=== PATIENT | female | born 1950 | race Caucasian/White ===

== ENCOUNTER 2022-09-14 07:00 | Day surgery (SDC) | payer MEDICARE, SELFPAY ==
[2022-09-14 07:21] VITALS: BP 127/80; PULSE 71; RESP 16; TEMP 36.4; O2SAT 98; BMI 32.1
[2022-09-14] MEDS: Lactated Ringers 1,000 ML 15 ML IV (07:31)
--- NOTE | 2022-09-14 08:36 | PCM.HP.BLA ---
History and Physical Date of Admission: 09/14/22 Intake Vital Signs ? 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 Complaint: Lower Back Lipoma Metal Lather Required: No Is patient in pain?: No Allergies acetaminophen [From Percocet] Adverse Reaction (Verified 08/04/22 08:38) Nightmaresoxycodone [From Percocet] Adverse Reaction (Verified 08/04/22 08:38) Nightmares Medications metoprolol succinate 25 mg tablet,extended release 24 hr 25 mg PO DAILY 08/04/22 [History Confirmed 08/04/22] PFSH Family History?(Updated 08/04/22 @ 08:35 by Madeline Tuesday) Brother Heart disease Hypertension High cholesterolMother Heart disease High cholesterol Hypertension Social History?(Updated 08/04/22 @ 08:36 by Madeline Tuesday) Smoking Status:? Never smoker alcohol intake:? current details:? one drink per week substance use type:? does not use HPI HPI HPI: The patient is here complaining of pain in her right lower back over the lipoma site ROS General General: Yes fatigue; No weight change, appetite, colon cancer, breast cancer or weakness HEENT HEENT: No difficulty swallowing, eye injury, eye surgery, swollen glands or hoarseness Endo Endocrine: No thyroid disease, diabetes mellitus, thyroid cancer, Hair loss, heat intolerance or cold intolerance Skin Skin: Yes changing moles; No rash Musc Musculoskeletal: Yes back problems and gout; No arthritis, rheumatoid arthritis or joint pain Cardio Cardiovascular: Yes high blood pressure; No murmur, pacemaker, heart disease, atrial fibrillation, heart attack, heart stent, palpitations, shortness of breat with exertion or chest pain Psych Psychiatric: No depression, anxiety or hearing voices Resp Respiratory: No shortness of breath, Yes sleep apnea, No cough, No COPD, No asthma, No emphysema and No wheezing Gastro Gastrointestinal: No abdominal pain, No nausea or vomiting, No diarrhea, No constipation, No blood in stool, Yes acid reflux, Yes hemorrhoids, No ulcers, No gallbladder problem and No black,tarry stools Juan Hematologic: No blood thinners, No blood disorders, No bleeding, No anemia and No blood clots Neuro Neurologic: No system reviewed and no additional complaints, except as documented, No as per HPI, No abnormal gait, No abnormal hearing, No abnormal movements, No abnormal speech, No behavioral changes, No burning sensations, No confusion, No convulsions, No disequilibrium, No dizziness, No localized weakness, No frequent falls, No headache(s), No lack of coordination, No loss of vision, No memory loss, No numbness, No other visual disturbances, No radicular pain, No restless legs, No sensory deficit, No syncope, No tingling, No tremor(s), No weakness and No other Exam Const General: cooperative Orientation: alert and oriented x3 HENMT Head: normal to inspection Neck Neck: normal visual inspection and full ROM Chest Chest palpation & inspection: normal inspection of the chest Resp Effort & Inspection: normal respiratory effort Auscultation: clear to auscultation bilaterally Cardio Rate: regular rate Rhythm: regular rhythm GI Inspection: non-distended Palpation: soft and nontender Musc Other: Patient has a subcutaneous soft tissue mass in the right lower back which is mobile and soft Skin General: no rashes or lesions noted Neuro General: patient alert and patient oriented x3 Extrem General: full ROM Psych Appearance: grossly normal Mental Status: mental status grossly normal Assessment and Plan Assessment and Plan (1) Back pain: ?Status:?Acute (2) Lipoma of back: ?Status:?Acute Plan The patient has a large lipoma of the right lower back which is causing her pain.? I informed her that I would have to excise this in the operating room due to its size.? I discussed the risks of bleeding and infection and recurrence.? Patient understands the risks and is when to proceed with excision. Marty Darby MD Pager: [facility] [address] [place] [address], [address] [place] [address] Office: Intake Vital Signs ? 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 Complaint: Lower Back Lipoma Metal Lather Required: No Is patient in pain?: No Allergies acetaminophen [From Percocet] Adverse Reaction (Verified 08/04/22 08:38) Nightmaresoxycodone [From Percocet] Adverse Reaction (Verified 08/04/22 08:38) Nightmares Medications metoprolol succinate 25 mg tablet,extended release 24 hr 25 mg PO DAILY 08/04/22 [History Confirmed 08/04/22] PFSH Family History?(Updated 08/04/22 @ 08:35 by Madeline Tuesday) Brother Heart disease Hypertension High cholesterolMother Heart disease High cholesterol Hypertension Social History?(Updated 08/04/22 @ 08:36 by Madeline Tuesday) Smoking Status:? Never smoker alcohol intake:? current details:? one drink per week substance use type:? does not use HPI HPI HPI: The patient is here complaining of pain in her right lower back over the lipoma site ROS General General: Yes fatigue; No weight change, appetite, colon cancer, breast cancer or weakness HEENT HEENT: No difficulty swallowing, eye injury, eye surgery, swollen glands or hoarseness Endo Endocrine: No thyroid disease, diabetes mellitus, thyroid cancer, Hair loss, heat intolerance or cold intolerance Skin Skin: Yes changing moles; No rash Musc Musculoskeletal: Yes back problems and gout; No arthritis, rheumatoid arthritis or joint pain Cardio Cardiovascular: Yes high blood pressure; No murmur, pacemaker, heart disease, atrial fibrillation, heart attack, heart stent, palpitations, shortness of breat with exertion or chest pain Psych Psychiatric: No depression, anxiety or hearing voices Resp Respiratory: No shortness of breath, Yes sleep apnea, No cough, No COPD, No asthma, No emphysema and No wheezing Gastro Gastrointestinal: No abdominal pain, No nausea or vomiting, No diarrhea, No constipation, No blood in stool, Yes acid reflux, Yes hemorrhoids, No ulcers, No gallbladder problem and No black,tarry stools Juan Hematologic: No blood thinners, No blood disorders, No bleeding, No anemia and No blood clots Neuro Neurologic: No system reviewed and no additional complaints, except as documented, No as per HPI, No abnormal gait, No abnormal hearing, No abnormal movements, No abnormal speech, No behavioral changes, No burning sensations, No confusion, No convulsions, No disequilibrium, No dizziness, No localized weakness, No frequent falls, No headache(s), No lack of coordination, No loss of vision, No memory loss, No numbness, No other visual disturbances, No radicular pain, No restless legs, No sensory deficit, No syncope, No tingling, No tremor(s), No weakness and No other Exam Const General: cooperative Orientation: alert and oriented x3 HENMT Head: normal to inspection Neck Neck: normal visual inspection and full ROM Chest Chest palpation & inspection: normal inspection of the chest Resp Effort & Inspection: normal respiratory effort Auscultation: clear to auscultation bilaterally Cardio Rate: regular rate Rhythm: regular rhythm GI Inspection: non-distended Palpation: soft and nontender Musc Other: Patient has a subcutaneous soft tissue mass in the right lower back which is mobile and soft Skin General: no rashes or lesions noted Neuro General: patient alert and patient oriented x3 Extrem General: full ROM Psych Appearance: grossly normal Mental Status: mental status grossly normal Assessment and Plan Assessment and Plan (1) Back pain: ?Status:?Acute (2) Lipoma of back: ?Status:?Acute Plan The patient has a large lipoma of the right lower back which is causing her pain.? I informed her that I would have to excise this in the operating room due to its size.? I discussed the risks of bleeding and infection and recurrence.? Patient understands the risks and is when to proceed with excision. Marty Darby MD Pager: [facility] [address] [place] [address], [address] [place] [address] Office: I have examined the patient and the H&P has been reviewed. There are no clinical changes since date of exam.
--- NOTE | 2022-09-14 08:50 | LIP_PTH ---
PATIENT: MIRNA BERMUDEZ [place] [facility] [place][id number] AGE/SX: 71/F ROOM: RE09/14/[address]: Dr. Marty Darby MD : 1950 BED: DIS: 09/14/2022 SPEC #: [id number] RECD: 09/14/22 11:59 STATUS: WARREN MARTINI #: [id number] RICK: 09/14/22 08:[address]: Marty Darby DEPT: SURGICAL PATHOLOGY RECD BY: Khloe Kerr ENTERED: 09/14/22 12:09 SP TYPE: LIPOMA OTHR DR: Dr. Lulú Sky MD Tissues: Soft tissues, NOS Procedures: Surgery Specimen Level III HEADER OPERATION: Excision lipoma PRE-OP DIAGNOSIS: Back pain, lipoma of back TISSUE SUBMITTED: Lipoma of back MICROSCOPIC DIAGNOSIS Soft tissue mass of back, excision: Mature adipose tissue consistent with lipoma. AM:chris 09/15/2022 MICROSCOPIC DESCRIPTION Slides are reviewed. GROSS DESCRIPTION Received in fixative is one container labeled with the patient's name and designated lipoma of back. The specimen consists of multiple pieces of yellow adipose tissue that in aggregate measure 7.5 x 7.0 x 2.0 cm. Sections revel yellow adipose cut surfaces without area of hemorrhage, necrosis or cystic degeneration. Auto Refinisher sections are submitted in four cassettes. / SJ:chris 09/14/2022 TC:1 CPT: 01462
[2022-09-14 09:20] VITALS: BP 127/80; BP 144/81; PULSE 68; RESP 16; TEMP 36.2; O2SAT 100
[2022-09-14] MEDS: Lidocaine 1% /Epi 1:100 (20ml) 20 ML Vial ×2 (09:21→09:22)
--- NOTE | 2022-09-14 09:23 | PCM.OPRPT ---
Report of Operation Date of Procedure: 09/14/22 Pre-Operative Diagnosis: Lipoma of the right lower back with back pain Post-Operative Diagnosis: Same Surgery/Procedure Performed:: Excision of lipoma of the right lower back Specimen's removed: Lipoma of the right lower back Description of Procedure: Patient was brought back to the operating room and general anesthesia was induced. Patient was then placed in prone position and the right lower back was prepped and draped in usual sterile fashion. An incision was marked and then injected with local anesthetic and an incision was made with a scalpel and deepened to the subcutaneous tissue. The lipoma was encountered and its capsule was dissected free circumferentially and was sent for pathology. It measured approximately 10 cm in diameter. The cavity was irrigated and suctioned dry and hemostasis was obtained using electrocautery. Incision was then closed with interrupted 3-0 Vicryl sutures and a running 4-0 Monocryl suture. Steri-Strips and bandages were applied. Patient was awoken and taken to PACU in stable condition and tolerated procedure well. Admit VTE Documentation VTE Mechan Device Prophylaxis: SCD's
--- NOTE | 2022-09-14 09:26 | DCINST_ITS ---
Discharge Instructions Diet Discharge Diet: No restrictions Activity Discharge Activity: May Drive (tomorrow) and May Shower (tomorrow) Weight Bearing Status: Weight bearing as tolerated Dressing / Incision Call your doctor if your incision/area has: Continuous Slow Oozing, Sudden Increased Bleeding, Increased Pain/ Swelling, Increased Redness, Foul Smelling Discharge and Swelling at the incision site Call your doctor if you observe: Fever of 101 or Higher Remove Dressing in: 2 days (Remove clear bandage in 2 days, remove Steri-Strips in 7 to 10 days.) Cleanse incision/area with: Soap & Water Follow Up Care Please Follow Up With: Marty Darby MD When: Please call to schedule 2 week follow up appointment. [phone] Test Results: Test results from this visit will be discussed in further detail at your follow- up appointment, if applicable. Discharge Plan Admission Attending Provider: Marty Darby Primary Care Provider: Lulú Sky Instructions Additional Instructions / Restrictions: Alternating ibuprofen and Tylenol for pain Discharge Orders/Prescriptions Prescriptions: No Action metoprolol succinate 25 mg tablet extended release 24 hr 25 mg PO QODAY thiamine HCl (vitamin B1) [Vitamin B-1] 500 mg Tablet 500 mg PO DAILY biotin 5 mg Capsule 5 mg PO DAILY potassium 99 mg Tablet 198 mg PO DAILY Vitamin C 1,000 mg Capsule, Extended Release 1 cap PO DAILY cholecalciferol (vitamin D3) [Vitamin D3] 50 mcg (2,000 unit) Tablet 100 mcg PO DAILY betaine HCl 300 mg Tablet 648 mg PO DAILY Women's Active 18 mg iron- 400 mcg-180 mg Tablet 2 tab PO DAILY vitamin C20-hvnwf acid 1,000-400 mcg Tablet, Sublingual 1 tab SUBLINGUAL DAILY ashwagandha root extract 300 mg Capsule 800 mg PO DAILY Barley [place] Juice Powder 1 pkg PO/SL DAILY DIM SUPPLEMENT 241 mg PO/SL DAILY Electrolyte Powder 1 pkg PO/SL DAILY Gallbladder Formul 2 cap PO/SL DAILY No Flush Niacin 500 mg PO/SL DAILY Raw Calcium 3 tab PO/SL DAILY Trace Minerals 1 cap PO/SL DAILY Tudh 500 mg PO/SL DAILY Referrals / Follow Up: Lulú Sky MD [Primary Care Provider] - Disposition Disposition (needs filled in before D/C Order can be placed): Home, Self Care
[2022-09-14 09:30] VITALS: BP 127/80; BP 129/77; PULSE 72; RESP 16; O2SAT 96
[2022-09-14 09:45] VITALS: BP 120/70; BP 127/80; PULSE 67; RESP 16; O2SAT 99
[2022-09-14 09:54] VITALS: BP 122/80; BP 127/80; PULSE 68; RESP 16; TEMP 36.5; O2SAT 98
[2022-09-14 10:28] VITALS: BP 127/80
== END 2022-09-14 10:37 | disposition home or self-care (01) ==
LOC: SDC 07:03 → AC 07:03
PROVIDERS: PCP Family Medicine; Referring Provider Surgery; Visit Provider Surgery
PROC: (CPT 21931; principal; 2022-09-14 08:40)
DX: D17.1 Benign lipomatous neoplasm of skin and subcutaneous tissue of trunk (principal); M54.9 Dorsalgia, unspecified; I10 Essential (primary) hypertension; K21.9 Gastro-esophageal reflux disease without esophagitis; G47.30 Sleep apnea, unspecified
CPT/HCPCS: 21931; 00300; 88304; J7120; J2405

== ENCOUNTER 2022-12-21 14:58 | Outpatient (CLI) | payer MEDICARE, SELFPAY ==
--- NOTE | 2022-12-21 15:00 | RAD_ITS ---
INDICATION: PAIN EXAMINATION/TECHNIQUE: X-RAY - XR Spine Lumbar Min 4 Views COMPARISON: FINDINGS: Vertebral bodies are normal height. No definite fracture demonstrated. Anterior subluxation 10 mm L4 on L5. Mild disc space narrowing and osteophytes throughout most levels. Facet arthropathy most pronounced at L4-5 and L5-S1. No paravertebral soft tissue mass identified. RAD/L/S Spine Min 4 Views IMPRESSION: No evidence of fracture or traumatic subluxation. Degenerative changes with anterolisthesis at L4-5. Electronically Signed: Arianna Monteiro MD at 5:23 EDT ,
--- NOTE | 2022-12-21 15:00 | RAD_ITS ---
STUDY: X-RAY - PELVIS REASON FOR EXAM: Female, 72 years old. PAIN TECHNIQUE: One view of the pelvis was obtained. COMPARISON: None. FINDINGS: There is a non-specific bowel gas pattern. Normal visualized soft tissue structures. Normal bilateral iliac wings, sacroiliac joints and visualized sacrum. Normal visualized bilateral superior and inferior pubic rami. Normal pubic symphysis. Normal ischial tuberosities. Normal visualized right femoral head. Normal right acetabulum. There is mild articular joint space narrowing of the right hip. Normal visualized left femoral head. Normal left acetabulum. There is mild articular joint space narrowing of the left hip. RAD/Pelvis 1 or 2 Views IMPRESSION: Mild bilateral hip arthrosis Electronically Signed: Naveen Amador MD at 23:09 EDT ,
[2022-12-21 16:05] LABS: EXAGEN MAILED SPECIMEN
[2022-12-21 18:09] LABS: Absolute Lymphocyte Count 2.07 X10^3/uL (0.83-4.51); Absolute Neutrophil Count 4.3 X10^3/uL (2.0-7.7); Basophil# 0.04 X10^3/uL; Basophil% 0.6 % (0-1); Eosinophil# 0.09 X10^3/uL; Eosinophils% 1.3 % (0-5); Hematocrit 49.2 % (37-47); International Normalized Ratio 0.9; Lymphocyte # 2.07 X10^3/ul (0.83-4.51); Lymphocyte % 29.9 % (19-41); Mean Corp Hgb Conc 32.5 g/dL (32-36); Mean Corpuscular Hgb 29.9 pg (27.0-32.0); Mean Platelet Vol. 10.8 fl (6.2-12.0); Monocyte# 0.41 X10^3/uL; Monocyte% 5.9 % (0-10); NRBC Flagged by Analyzer 0 % (0-5); Neutrophil # 4.29 X10^3/uL (2.7-7.7); Neutrophil % 61.9 % (47-70); Platelet Count 172 K/mm3 (150-450); Prothrombin Time (Protime)PT. 11.8 SECONDS (11.7-14.9); RBC Distribution Width CV 12.9 % (11.6-14.6); RBC Distribution Width SD 43.3 fl (35.1-43.9); Red Blood Count 5.35 M/mm3 (4.2-5.4); White Blood Count 6.9 K/mm3 (4.4-11.0)
[2022-12-21 18:10] LABS: Partial Thromboplast Time 33.9 Seconds (24.1-36.2)
[2022-12-21 18:14] LABS: ALB/GLOB Ratio 1.1 RATIO (0.9-2.4); AST(SGOT) 42 U/L (15-37); Alanine Aminotransfer ALT/SGPT 77 U/L (13-56); Albumin, Serum 3.8 g/dL (3.2-5.0); Alkaline Phosphatase 87 U/L (45-117); Anion Gap 6 (5-15); BUN 26 mg/dL (7-18); BUN/Creat Ratio 27.7 RATIO (10-20); Calcium,Total 9.6 mg/dL (8.5-10.1); Chloride 109 mmol/L (98-107); Creatinine, Serum 0.94 mg/dL (0.55-1.02); EST Glomerular Filtration Rate 62 mL/min (>60); Est Glom Filt Rate - Afr Amer 75 mL/min (>60); Globulin 3.5 g/dL (2.2-4.2); Glucose 92 mg/dL (74-106); Potassium 4.1 mmol/L (3.5-5.1); Protein, Total 7.3 g/dL (6.4-8.2); Sodium Level 140 mmol/L (136-145)
[2022-12-21 18:54] LABS: Protein, Urine (Random) < 6.0 mg/dL (<11.9); Protein:Creat Ratio 110 mg/g CRE (0-200)
[2022-12-24 20:08] LABS: Dilute Prothrombin Time (dPT) 41.6 sec (0.0-47.6); Hexagonal Phase Phospholipid 1 sec (0-11); Interpretation Comment: (.); PTT-LA 37.4 sec (0.0-43.5); Thrombin Time 20.5 sec (0.0-23.0); dPT Confirm Ratio 1.08 Ratio (0.00-1.34)
== END 2022-12-21 23:59 | disposition home or self-care (01) ==
PROVIDERS: PCP Family Medicine; Referring Provider Internal Medicine Rheumatology; Visit Provider Internal Medicine Rheumatology
DX: R76.8 Other specified abnormal immunological findings in serum (principal); M47.897 Other spondylosis, lumbosacral region; M19.071 Primary osteoarthritis, right ankle and foot; I10 Essential (primary) hypertension; G47.33 Obstructive sleep apnea (adult) (pediatric); K14.6 Glossodynia; K52.9 Noninfective gastroenteritis and colitis, unspecified; E78.5 Hyperlipidemia, unspecified; M21.41 Flat foot [pes planus] (acquired), right foot; R58 Hemorrhage, not elsewhere classified; R79.1 Abnormal coagulation profile
CPT/HCPCS: 36415; 72110; 72170; 80053; 82570; 84156; 85025; 85598; 85610; 85670; 85730

== ENCOUNTER → 2023-01-27 | Outpatient (CLI) | payer MEDICARE, SELFPAY ==
--- NOTE | 2023-01-27 09:37 | US_ITS ---
EXAM: US ABDOMEN LIMITED, RIGHT UPPER QUADRANT CLINICAL INDICATION: LIVER ENZYMES TECHNIQUE: Real-time ultrasound of the right upper quadrant with image documentation. COMPARISON: No relevant prior studies available. FINDINGS: LIVER: Liver measures 14.9 cm in length. There is normal echotexture. No intrahepatic biliary ductal dilation. GALLBLADDER: Gallbladder wall measures 1 mm. No shadowing gallstone. No pericholecystic fluid. Negative sonographic Ledbetter''s sign. COMMON BILE DUCT: Common bile duct measures 2 mm. The proximal common bile duct is within normal limits for the patient''s age. PANCREAS: Unremarkable as visualized. No focal abnormality is demonstrated in the pancreas. No pancreatic ductal dilatation. RIGHT KIDNEY: The right kidney measures 11.4 x 4.4 x 5.7 cm. There is no hydronephrosis. No shadowing calculus. No focal lesion or perinephric collection is demonstrated. US/Liver IMPRESSION: No acute findings in the right upper quadrant. Electronically Signed: Jamel Schuster MD at 23:45 EDT ,
== END | disposition home or self-care (01) ==
LOC: US 09:36
PROVIDERS: PCP Family Medicine; Referring Provider Internal Medicine Rheumatology; Visit Provider Internal Medicine Rheumatology
DX: R76.8 Other specified abnormal immunological findings in serum (principal)
CPT/HCPCS: 76705

== ENCOUNTER → 2023-04-01 | Outpatient (CLI) | payer MEDICARE, SELFPAY ==
[2023-04-01 18:40] LABS: ALB/GLOB Ratio 1.1 RATIO (0.9-2.4); AST(SGOT) 28 U/L (15-37); Alanine Aminotransfer ALT/SGPT 58 U/L (13-56); Albumin, Serum 3.6 g/dL (3.2-5.0); Alkaline Phosphatase 85 U/L (45-117); Anion Gap 8 (5-15); BUN 25 mg/dL (7-18); BUN/Creat Ratio 27.5 RATIO (10-20); Calcium,Total 9.3 mg/dL (8.5-10.1); Chloride 110 mmol/L (98-107); Creatinine, Serum 0.91 mg/dL (0.55-1.02); EST Glomerular Filtration Rate 65 mL/min (>60); Est Glom Filt Rate - Afr Amer 78 mL/min (>60); Globulin 3.2 g/dL (2.2-4.2); Glucose 91 mg/dL (74-106); Potassium 3.9 mmol/L (3.5-5.1); Protein, Total 6.8 g/dL (6.4-8.2); Sodium Level 140 mmol/L (136-145)
[2023-04-01 19:11] LABS: Hepatitis B Surface Antibody Non-Reactive; Hepatitis B Surface Antigen Non-Reactive (Nonreactive); Hepatitis C Antibody Non-Reactive (Nonreactive)
== END | disposition home or self-care (01) ==
LOC: MTLAB 14:25
PROVIDERS: PCP Family Medicine; Referring Provider Internal Medicine Rheumatology; Visit Provider Internal Medicine Rheumatology
DX: R76.8 Other specified abnormal immunological findings in serum (principal)
CPT/HCPCS: 36415; 80053; 86706; 86803; 87340

== ENCOUNTER → 2023-05-17 | Outpatient (CLI) | payer MEDICARE, SELFPAY | END | disposition home or self-care (01) | LOC: MTLAB 12:37 | PROVIDERS: PCP Family Medicine; Referring Provider Internal Medicine Infectious Disease; Visit Provider Internal Medicine Infectious Disease | DX: R19.7 Diarrhea, unspecified (principal) | CPT/HCPCS: 87177; 87209 ==

== ENCOUNTER → 2023-05-18 | Outpatient (CLI) | payer MEDICARE, SELFPAY | END | disposition home or self-care (01) | LOC: LAB.FUTURE 13:12 → LABSPEC 13:12 | PROVIDERS: PCP Family Medicine; Referring Provider Internal Medicine Infectious Disease; Visit Provider Internal Medicine Infectious Disease | DX: R19.7 Diarrhea, unspecified (principal) | CPT/HCPCS: 87177; 87209 ==

== ENCOUNTER → 2023-05-20 | Outpatient (CLI) | payer MEDICARE, SELFPAY | END | disposition home or self-care (01) | LOC: MTLAB 12:49 | PROVIDERS: PCP Family Medicine; Referring Provider Internal Medicine Infectious Disease; Visit Provider Internal Medicine Infectious Disease | DX: R19.7 Diarrhea, unspecified (principal) | CPT/HCPCS: 87177; 87209 ==

== ENCOUNTER → 2023-10-19 | Outpatient (CLI) | payer MEDICARE, SELFPAY ==
[2023-10-19 15:56] LABS: AST(SGOT) 28 U/L (15-37); Alanine Aminotransfer ALT/SGPT 52 U/L (13-56); Albumin, Serum 3.9 g/dL (3.2-5.0); Alkaline Phosphatase 97 U/L (45-117); Anion Gap 4 (5-15); BUN 26 mg/dL (7-18); BUN/Creat Ratio 23.4 RATIO (10-20); Calcium,Total 9.7 mg/dL (8.5-10.1); Chloride 109 mmol/L (98-107); Creatinine, Serum 1.11 mg/dL (0.55-1.02); EST Glomerular Filtration Rate 51 mL/min (>60); Est Glom Filt Rate - Afr Amer 62 mL/min (>60); Globulin 3.8 g/dL (2.2-4.2); Glucose 96 mg/dL (74-106); Protein, Total 7.7 g/dL (6.4-8.2); Sodium Level 140 mmol/L (136-145)
[2023-10-19 16:46] LABS: Hepatitis B Surface Antigen Non-Reactive (Nonreactive); Hepatitis C Antibody Non-Reactive (Nonreactive); Syphilis Antibodies Non-reactive
[2023-10-21 06:09] LABS: HSV 1 IgG < 0.91 index (0.00-0.90); HSV 2 IgG < 0.91 index (0.00-0.90)
[2023-10-21 20:08] LABS: Chlamydia By Nucleic Acid AMP Negative (Negative); Gonococcus By Nucleic Acid AMP Negative (Negative)
[2023-10-24 14:09] LABS: HPV APTIMA, High Risk Negative (Negative)
== END | disposition home or self-care (01) ==
PROVIDERS: PCP Nurse Practitioner Family; Referring Provider Nurse Practitioner Women's Health; Visit Provider Nurse Practitioner Women's Health
DX: Z12.4 Encounter for screening for malignant neoplasm of cervix (principal); Z86.19 Personal history of other infectious and parasitic diseases; Z78.0 Asymptomatic menopausal state; N89.8 Other specified noninflammatory disorders of vagina; Z20.2 Contact with and (suspected) exposure to infections with a predominantly sexual mode of transmission; R74.8 Abnormal levels of other serum enzymes
CPT/HCPCS: 36415; 80053; 86695; 86696; 86780; 86803; 87070; 87205; 87340; 87491; 87591; 87624; 88175; G0145

== ENCOUNTER → 2024-09-07 | Outpatient (CLI) | payer MEDICARE, SELFPAY ==
[2024-09-07 12:29] LABS: Hepatitis B Surface Antigen Nonreactive (Nonreactive); Hepatitis C Antibody Nonreactive (Nonreactive); Syphilis Antibodies Nonreactive (Nonreactive)
[2024-09-07 21:36] LABS: HIV No_Result (Nonreactive)
[2024-09-11 03:07] LABS: Chlamydia By Nucleic Acid AMP Negative (Negative); Gonococcus By Nucleic Acid AMP Negative (Negative)
== END | disposition home or self-care (01) ==
LOC: BWCLAB 09:16
PROVIDERS: PCP Nurse Practitioner Family; Referring Provider Advanced Practice Midwife; Visit Provider Advanced Practice Midwife
DX: Z20.2 Contact with and (suspected) exposure to infections with a predominantly sexual mode of transmission (principal); N89.8 Other specified noninflammatory disorders of vagina
CPT/HCPCS: 36415; 86695; 86696; 86703; 86780; 86803; 87070; 87205; 87340; 87491; 87591

== ENCOUNTER → 2024-11-30 | Outpatient (CLI) | payer MEDICARE, SELFPAY ==
--- OUTSIDE RECORDS SUMMARY | 2024-11-30 10:46 | XMS RPT_ITS | CCD ---
Author Organization [facility] Care Team Providers Care Material Requirements Planning Manager Name Role Phone Penhos Fredy Unavailable Unavailable Penhos, Fredy Unavailable Unavailable Unavailable Unavailable Unavailable Dr. Lulú Rueda Primary Care Provider Dr. Lulú Rueda Referring Provider Dr. Marty Darby Attending Provider [phone] Dr. Marty Darby Referring Provider Dr. Marty Darby Other Provider Dr. Lulú Rueda Primary Care Provider Dr. Marty Darby Attending Provider MARYBETH CHOE, LULÚ Primary Care Unavailable MARYBETH CHOE, LULÚ Primary Care Unavailable FLAKO CHOE, ALONZO Haddad Attending Unavailab moiz PALUMBO MD, [facility] Referring Unavailable VITEK MINE ENGINEERING SUPERINTENDENT, EM Attending Unavailable MARYBETH CHOE, LULÚ Primary Care Unavailable MARYBETH CHOE, LULÚ Primary Care Unavailable VITEK MINE ENGINEERING SUPERINTENDENT, EM Attending Unavailable MARYBETH CHOE, LULÚ Primary Care Unavailable VITEK MINE ENGINEERING SUPERINTENDENT, EM Attending Unavailable VITEK MINE ENGINEERING SUPERINTENDENT, EM Referring Unavailable MARYBETH CHOE, LULÚ Primary Care Unavailable VITEK MINE ENGINEERING SUPERINTENDENT, EM Attending Unavailable VITEK MINE ENGINEERING SUPERINTENDENT, EM Referring Unavailable MARYBETH CHOE, LULÚ Primary Care Unavailable VITEK MINE ENGINEERING SUPERINTENDENT, EM Attending Unavailable VITEK MINE ENGINEERING SUPERINTENDENT, EM Referring Unavailable MARYBETH CHOE, LULÚ Primary Care Unavailable Dr. Lulú Rueda Referring Provider Arlette TOMPKINS, CINDI Maynard Attending Provider [phone] Deborah, CORNCOB PIPE SUPERVISOR-C Gould Primary Care Provider [phone] VITEK MINE ENGINEERING SUPERINTENDENT, EM Attending Unavailable VITEK MINE ENGINEERING SUPERINTENDENT, EM Referring Unavailable MARYBETH CHOE, LULÚ Primary Care Unavailable MARYBETH CHOE, LULÚ Primary Care Unavailable VITEK MINE ENGINEERING SUPERINTENDENT, EM Attending Unavailable VITEK MINE ENGINEERING SUPERINTENDENT, EM Referring Unavailable MARYBETH CHOE, LULÚ Primary Care Unavailable VITEK MINE ENGINEERING SUPERINTENDENT, EM Attending Unavailable VITEK MINE ENGINEERING SUPERINTENDENT, EM Attending Unavailable MARYBETH CHOE, LULÚ Primary Care Unavailable LIVAN HUTCHISON Attending Unavailable DEBORAH, LISANDRA Primary Care Unavailable [place] CORNCOB PIPE SUPERVISOR, Aleyda Referring Unavailable Deborah, Lisandra Primary Care Unavailable Arlette CORNCOB PIPE SUPERVISOR, Aleyda Attending Unavailable Judy Licona Attending Unavailable Judy Licona Referring Unavailable Deborah, Lisandra Primary Care Unavailable Deborah, Lisandra Primary Care Unavailable Arlette CORNCOB PIPE SUPERVISOR, Aleyda Attending Unavailable Deborah, Lisandra Referring Unavailable Drgilberto, Lulú Referring Unavailable [place] CORNCOB PIPE SUPERVISOR, Aleyda Attending Unavailable Deborah, Lisandra Primary Care Unavailable Deborah, Lisandra Primary Care Unavailable Judy Licona Attending Unavailable Deborah, Lisandra Referring Unavailable Deborah, Lisandra Primary Care Unavailable Richard Roy Attending Unavailable Deborah, Lisandra Referring Unavailable Deborah, Lisandra Primary Care Unavailable [place] CORNCOB PIPE SUPERVISOR, Aleyda Attending Unavailable Deborah, Lisandra Referring Unavailable Deborah, Lisandra Primary Care Unavailable [place] CORNCOB PIPE SUPERVISOR, Aleyda Attending Unavailable Deborah, Lisandra Referring Unavailable Deborah, Lisandra Primary Care Unavailable [place] CORNCOB PIPE SUPERVISOR, Aleyda Attending Unavailable [place] CORNCOB PIPE SUPERVISOR, Aleyda Referring Unavailable Deborah, Lisandra Primary Care Unavailable Deborah, Lisandra Attending Unavailable Deborah CORNCOB PIPE SUPERVISOR-C, Gould Primary Care Provider [phone] Deborah CORNCOB PIPE SUPERVISOR-C, Gould Referring Provider Richard Roy Attending Provider Judy Licona CNM Attending Provider [phone] Judy Licona CNM Referring Provider Allergies Allergy Classification Reported Allergen(s) Allergy Type Date of Onset Reaction(s) Facility (7 sources) oxyCODONE Drug Allergy 3 [facility] (1 source) Acetaminophen / oxyCODONE; Translations: [OXYCODONE-ACETAM INOPHEN] Drug Allergy 5 [facility] (1 source) OTHER; Translations: [OTHER] Propensity to adverse reactions (disorder) 7 [facility] (1 source) oxyCODONE Drug Allergy 5 [facility] Repository Medications Current Medications Medication Drug Class(es) Dates Sig (Normalized) Sig (Original) ascorbic acid 1000 mg extended release oral tablet (7 sources) Vitamin C Start: 09-08-2022 Ascorbic Acid (Vitamin C) (Vitamin C) 1,000 mg Capsule, Extended Release Active 1 NMA PO DAILY September 08, 2022 12:00am Start: 09-08-2022 take 1 capsule by mo ut once daily Ascorbic Acid (Vitamin C) (Vitamin C) 1,000 mg Capsule, Extended Release Active 1 CAP PO DAILY September 08, 2022 12:00am Ashwagandha Root Extract (6 sources) Start: 09-08-2022 take 800 mg by mouth once daily Ashwagandha Root Extract Active 800 MG PO DAILY September 07, 2022 11:00pm Start: 09-08-2022 take 800 mg by mouth once blair y Ashwagandha Root Extract Active 800 MG PO DAILY September 08, 2022 12:00am Ashwagandha Root Extract 300 mg Capsule (1 source) Start: 09-08-2022 take 1 capsule by mouth once daily Ashwagandha Root Extract 300 mg Capsule Active 800 mg PO DAILY September 08, 2022 12:00am cholecalciferol 0.05 mg oral tablet (7 sources) Vitamin D Start: 09-08-2022 take 1 tablet by mouth once daily Cholecalciferol (Vitamin D3) (Vitamin D3) 50 mcg (2,000 unit) Tablet Active 100 ug PO DAILY September 08, 2022 12:00am fluconazole 150 mg oral tablet (1 source) Azole Antifungal Start: 09-10-2024 Fluconazole 150 mg tablet Active 150 mg PO Every 3 Days 2 0 September 10, 2024 12:00am may repeat second dose 72 hrs after first dose if symptoms persist losartan potassium 25 mg oral tablet (2 sources) Angiotensin 2 Receptor Nova Start: 10-19-2023 Losartan 25 mg tablet Active 12.5 mg PO DAILY October 19, 2023 12:00am Start: 10-19-2023 take 12.5 mg by mouth once noemi ly Losartan Active 12.5 MG PO DAILY October 19, 2023 12:00am niacin 500 mg oral tablet (7 sources) Nicotinic Acid Start: 09-08-2022 take 500 mg by mouth once daily No Flush Niacin Active 500 mg SL/PO DAILY September 08, 2022 12:00am thiamine 500 mg oral tablet (7 sources) Start: 09-08-2022 take 1 tablet by mouth once daily Thiamine Hcl (Vitamin B1) (Vitamin B-1) 500 mg Tablet Active 500 mg PO DAILY September 08, 2022 12:00am Trace Minerals (7 sources) Start: 09-08-2022 Trace Minerals Active 1 NMA SL/PO DAILY September 08, 2022 12:00am Start: 09-08-2022 take 1 capsule by mo uth once daily Trace Minerals Active 1 CAP SL/PO DAILY September 07, 2022 11:00pm Start: 09-08-2022 take 1 capsule by mo uth once daily Trace Minerals Active 1 CAP SL/PO DAILY September 08, 2022 12:00am Tudh (7 sources) Start: 09-08-2022 take 500 mg by mouth once daily Tudh Active 500 mg SL/PO DAILY September 08, 2022 12:00am Start: 09-08-2022 take 500 mg by mouth once blair y Tudh Active 500 MG SL/PO DAILY September 07, 2022 11:00pm Start: 09-08-2022 take 500 mg by mouth once blair y Tudh Active 500 MG SL/PO DAILY September 08, 2022 12:00am Vitamin H72-Kxmgg Acid (6 sources) Start: 09-08-2022 Vitamin B12-Fo lic Acid Active 1 TABLET SL DAILY September 07, 2022 11:00pm Start: 09-08-2022 Vitamin B12-Fo lic Acid Active 1 TABLET SL DAILY September 08, 2022 12:00am Vitamin M11-Jfnbx Acid 1,000 -400 mcg Tablet, Sublingual (1 source) Start: 09-08-2022 Vitamin B12-Fo lic Acid 1,000-400 mcg Tablet, Sublingual Active 1 {tbl} SL DAILY September 08, 2022 12:00am Completed/Discontinued Medications Medication Drug Class(es) Dates Sig (Normalized) Sig (Original) Barley Belterra Juice Powder (7 sources) Start: 09-08-2022 End: 09-07-2024 Barley Belterra Juice Powder Discontinued 1 NMA SL/PO DAILY September 08, 2022 12:00am September 07, 2024 8:30am Start: 09-08-2022 Barley Belterra Ju ice Powder Active 1 PKG SL/PO DAILY September 07, 2022 11:00pm Start: 09-08-2022 Barley Belterra Ju ice Powder Active 1 PKG SL/PO DAILY September 08, 2022 12:00am betaine 300 mg oral tablet (7 sources) Methylating Agent Start: 09-08-2022 End: 09-07-2024 Betaine Hcl 300 mg Tablet Discontinued 648 mg PO DAILY September 08, 2022 12:00am September 07, 2024 8:30am Start: 09-08-2022 take 648 mg by mouth once blair y Betaine Hcl Active 648 MG PO DAILY September 08, 2022 12:00am biotin 5 mg oral capsule (7 sources) Start: 09-08-2022 End: 09-07-2024 take 1 capsule by mouth once daily Biotin 5 mg Capsule Discontinued 5 mg PO DAILY September 08, 2022 12:00am September 07, 2024 8:30am Calcium (7 sources) Phosphate Binder, Calcium Start: 09-08-2022 End: 09-07-2024 Raw Calcium Discontinued 3 {tbl} SL/PO DAILY September 08, 2022 12:00am September 07, 2024 8:31am Start: 09-08-2022 take 3 tablets by mouth once d aily Raw Calcium Active 3 TABLET SL/PO DAILY September 07, 2022 11:00pm Start: 09-08-2022 take 3 tablets by mouth once d aily Raw Calcium Active 3 TABLET SL/PO DAILY September 08, 2022 12:00am DIM SUPPLEMENT (7 sources) Start: 09-08-2022 End: 09-07-2024 take 241 mg by mouth once daily DIM SUPPLEMENT Discontinued 241 mg SL/PO DAILY September 08, 2022 12:00am September 07, 2024 8:30am Start: 09-08-2022 take 241 mg by mouth once blair y DIM SUPPLEMENT Active 241 MG SL/PO DAILY September 07, 2022 11:00pm Start: 09-08-2022 take 241 mg by mouth once blair y DIM SUPPLEMENT Active 241 MG SL/PO DAILY September 08, 2022 12:00am Electrolyte Powder (7 sources) Start: 09-08-2022 End: 09-07-2024 Electrolyte Powder Discontin ued 1 NMA SL/PO DAILY September 08, 2022 12:00am September 07, 2024 8:30am Start: 09-08-2022 Electrolyte Po wder Active 1 PKG SL/PO DAILY September 07, 2022 11:00pm Start: 09-08-2022 Electrolyte Po wder Active 1 PKG SL/PO DAILY September 08, 2022 12:00am estradiol 0.1 mg/ml vaginal cream (2 sources) Estrogen Start: 10-19-2023 End: 09-07-2024 Estradiol 0.01 % (0.1 mg/gram) cream Discontinued 0 VAGINAL .COMPLEX 42.5 October 19, 2023 12:00am September 07, 2024 8:31am small amount as directed vaginal every other day X 4 weeks then twice a week; Start: 10-19-2023 Estradiol Acti ve 0 VAGINAL .COMPLEX 42.5 October 19, 2023 12:00am small amount as directed vaginal every other day X 4 weeks then twice a week; Gallbladder Formul (7 sources) Start: 09-08-2022 End: 09-07-2024 Gallbladder Formul Discontin ued 2 NMA SL/PO DAILY September 08, 2022 12:00am September 07, 2024 8:31am Start: 09-08-2022 take 2 capsules by m outh once daily Gallbladder Formul Active 2 CAP SL/PO DAILY September 07, 2022 11:00pm Start: 09-08-2022 take 2 capsules by m outh once daily Gallbladder Formul Active 2 CAP SL/PO DAILY September 08, 2022 12:00am 24 hr metoprolol succinate 25 mg extended release oral tablet (7 sources) beta-Adrenergic Nova Start: 08-04-2022 End: 10-19-2023 take 1 tablet by mouth every other day Metoprolol Succinate 25 mg tablet extended release 24 hr Discontinued 25 mg PO EVERY OTHER DAY August 04, 2022 1:00am October 19, 2023 2:32pm Mv,Ca,Min-Iron-Fa -Guarana-Caff (Women's Active) 18 mg iron- 400 mcg-180 mg Tablet (7 sources) Start: 09-08-2022 End: 09-07-2024 Mv,Ca,Lfk-Qisz-Zs- Guarana-Caff (Women's Active) 18 mg iron- 400 mcg-180 mg Tablet Discontinued 2 {tbl} PO DAILY September 08, 2022 12:00am September 07, 2024 8:31am Start: 09-08-2022 Mv,Ca,Min-Iron -Lx-Lyrfygs-Hnwo (Women's Active) 18 mg iron- 400 mcg-180 mg Tablet Active 2 TABLET PO DAILY September 07, 2022 11:00pm Start: 09-08-2022 Mv,Ca,Min-Iron -Ue-Wyekdob-Vdst (Women's Active) 18 mg iron- 400 mcg-180 mg Tablet Active 2 TABLET PO DAILY September 08, 2022 12:00am oseltamivir 75 mg oral capsule (1 source) Neuraminidase Inhibitor Start: 08-09-2024 End: 08-14-2024 take 1 capsule by mouth every twelve hours Oseltamivir (Tamiflu) 75 mg capsule Discontinued 75 mg PO Q12H 10 5 August 09, 2024 1:00am August 13, 2024 1:00am August 14, 2024 1:15am potassium 99 mg extended release oral tablet (7 sources) Start: 09-08-2022 End: 09-07-2024 take 2 tablets by mouth once daily Potassium 99 mg Tablet Discontinued 198 mg PO DAILY September 08, 2022 12:00am September 07, 2024 8:31am Start: 09-08-2022 take 198 mg by mouth once blair y Potassium Active 198 MG PO DAILY September 07, 2022 11:00pm Start: 09-08-2022 take 198 mg by mouth once blair y Potassium Active 198 MG PO DAILY September 08, 2022 12:00am Problems Active Problems Problem Classification Problem Date Documented Da te Episodic/Chronic Esophageal disorders (7 sources) Gastroesophageal reflux disease; Translations: [Gastro-esophageal reflux disease without esophagitis] 08-04-2022 Chronic Essential hypertension (7 sources) Hypertensive disorder; Translations: [Essential (primary) hypertension] 08-04-2022 Chronic Genitourinary symptoms and ill-defined conditions (1 source) Unspecified urinary incontinence; Translations: [Unspecified urinary incontinence] Onset: Chronic Gout and other crystal arthropathies (7 sources) Gout; Translations: [Gout, unspecified] 08-04-2022 Chronic Hemorrhoids (7 sources) Hemorrhoids; Translations: [Unspecified hemorrhoids] 08-04-2022 Episodic Immunizations and screening for infectious disease (2 sources) Contact with and (suspected) exposure to infections with a predominantly sexual mode of transmission; Translations: [Contact with or exposure to venereal diseases] Onset: 5 10-19-2023 Episodic Influenza (2 sources) Influenza due to Influenza A virus; Translations: [Influenza due to other identified influenza virus with other respiratory manifestations] 08-09-2024 Episodic Menopausal disorders (3 sources) Atrophic vaginitis; Translations: [Postmenopausal atrophic vaginitis] 10-19-2023 Chronic Other and unspecified benign neoplasm (7 sources) Lipoma of back; Translations: [Benign lipomatous neoplasm of skin and subcutaneous tissue of trunk] 08-04-2022 Episodic Other and unspecified benign neoplasm (2 sources) Benign lipomatous neoplasm of skin and subcutaneous tissue of trunk; Translations: [Lipoma of other specified sites] 08-04-2022 Episodic Other female genital disorders (1 source) Other specified noninflammatory disorders of vagina; Translations: [Other specified noninflammatory disorders of vagina] Onset: 5 Episodic Other female genital disorders (2 sources) Vaginal odor; Translations: [Other specified noninflammatory disorders of vagina] 09-07-2024 Episodic Other gastrointestinal disorders (1 source) Personal history of other diseases of the digestive system; Translations: [History of gastroenteritis] Onset: Episodic Other infections; including parasitic (2 sources) History of human papilloma virus infection; Translations: [Personal history of other infectious and parasitic diseases] 10-19-2023 Episodic Comment on above: 09/2023 neg pap and H PV Other infections; including parasitic (1 source) Personal history of other infectious and parasitic diseases; Translations: [Personal history of other infectious and parasitic diseases] 10-19-2023 Episodic Other liver diseases (2 sources) Elevated liver enzymes level; Translations: [Abnormal levels of other serum enzymes] 10-19-2023 Episodic Other upper respiratory infections (1 source) Acute pharyngitis, unspecified; Translations: [Acute pharyngitis, unspecified] Onset: 5 Episodic Residual codes; unclassified (7 sources) Sleep apnea; Translations: [Sleep apnea, unspecified] 08-04-2022 Chronic Residual codes; unclassified (1 source) Pain, unspecified; Translations: [Pain, unspecified] Onset: 5 Episodic Spondylosis; intervertebral disc disorders; other back problems (8 sources) Backache; Translations: [Dorsalgia, unspecified] 08-04-2022 Episodic Unclassified (1 source) Post-viral cough syndrome; Translations: [Post-viral cough syndrome] Onset: 4 Past or Other Problems Problem Classification Problem Date Documented Da te Episodic/Chronic Other liver diseases (2 sources) Abnormal levels of other serum enzymes; Translations: [Other nonspecific abnormal serum enzyme levels] Onset: 10-19-2023 10-19-2023 Episodic Other screening for suspected conditions (not mental disorders or infectious disease) (2 sources) Encounter for screening mammogram for malignant neoplasm of breast; Translations: [Encounter for screening for malignant neoplasm of cervix] Onset: 10-25-2023 Episodic Results Test Name Value Interpretation Reference Range Facility Chlamydia/GC BLADE aptimaon CHLAMY,NUC ACID Negative Normal Negative [facility] Comment on above: Performed By: #### M 100.1999, M100.3200, L7000.1800 #### [facility] [address] [place], [place], [id number] GC BY NUC ACID Negative Normal Negative [facility] Comment on above: Result Comment: Perf ormed at: =G - [facility] [address] [id number] Manager Net: Katelynn Arndt MD, Phone: [phone] Performed By: #### M 100.2000, M100.3200, L7000.1800 #### [facility] [address] [place], [address] HSV 1 AND 2 IgGon 09-11-2024 HSV 1 IgG Normal [facility] Comment on above: Result Comment: RESU LT: NON REACTIVE Please note reference interval change HSV-1 IgG testing performed using the [employer] HSV-1 IgG assay. Performed By: #### L 3400.1610, L509.8002, L3890.6006, L3890.6102, L3890.6301 ####[facility] [address] [place], [address] HSV 2 IgG Normal [facility] Comment on above: Result Comment: RESU LT: NON REACTIVE Please note reference interval change Current guidelines and recommendations do not recommend routine screening for HSV-2 in asymptomatic individuals, including those that are . The detection of HSV-2 IgG antibodies in a single sample indicates previous exposure to HSV-2 but does not give information as to the site of HSV infection or the timing of exposure. The predictive value of positive and negative results depends on the population's prevalence and the pretest likelihood of HSV-2. HSV-2 IgG testing performed using the [employer] Ele[employer] HSV-2 IgG assay. Performed at: [place] [id number] Manager Net: Slim Wilkins PhD, Phone: [phone] Performed By: #### L 3400.1610, L509.8002, L3890.6006, L3890.6102, L3890.6301 ####[facility] [address] [place], [address] Genital Culture Comprehensiv moe 09-10-2024 VAC Reason for Exam: vag inal burning odor Normal vaginal veronica isolated. No Gardnerella, Neisseria or beta-hemolytic Streptococcus isolated. Yeast Like Organism Amount Growth 1+ GPC Poss Enterococcus sp GPC Poss Enterococcus sp Normal [facility] Comment on above: Performed By: #### M 100.2000, M100.3200, L7000.1800 #### [facility] [address] [place], [place], [id number] C. trachomatis rRNA BLADE+prob e Ql (Unsp spec)Ordered By: Judy Licona on 09-07-2024 Chlamydia DNA (BLADE) Negative Negative [facility] Genital cultureOrdered By: Jenae Licona on 09-07-2024 Genital Culture Yeast Like Organism Abnormal [facility] Genital Culture GPC Poss Enterococcus sp Abnormal [facility] Gram Stainon 09-07-2024 GS Reason for Exam: vag inal burning odor Gram Stain 2+ Gram positive rods Rare Gram positive cocci No Gram negative diplococci Rare White Blood Cells Normal [facility] Comment on above: Performed By: #### M 100.2000, M100.3200, L7000.1800 #### [facility] [address] [place], [address] Gram stainOrdered By: Judy Licona on 09-07-2024 Microscopic observation Gram stain Nom (Unsp spec) [facility] HBV surface Ag Ql (S)Ordered By: Judy Licona on 09-07-2024 Hepatitis B Surface Antigen Non-Reactive Nonreactive [facility] Comment on above: Reactive: Presumptiv e evidence of HBV. Repeatedly reactive samples must be confirmed using a neutralization test ([employer] HBsAg Confirmatory Test)Non-Reactive: HBsAg not detected; does not exclude the possibility of exposure to HBV HSV 2 Ab IA Qn (S)Ordered By : Judy Licona on 09-07-2024 Herpes Simplex Virus II IgG Ab See comment [facility] Comment on above: RESULT: NON REACTIVE Please note reference interval changeCurrent guidelines and recommendations do not recommendroutine screening for HSV-2 in asymptomatic individuals,including those that are . The detection of HSV-2IgG antibodies in a single sample indicates previousexposure to HSV-2 but does not give information as to thesite of HSV infection or the timing of exposure. Thepredictive value of positive and negative results dependson the population's prevalence and the pretest likelihoodof HSV-2. HSV-2 IgG testing performed using the [employer] HSV-2 IgG assay.Performed at: [facility] [id number] Director: Slim Wilkins PhD, Phone: [phone] Hepatitis C antibodyOrdered By: Judy Licona on 09-07-2024 Hepatitis C Antibody Non-Reactive Nonreactive [facility] Comment on above: Reactive: Presumptiv e evidence of antibodies to HCV. Follow CDC recommendations for supplemental testing.Non-Reactive: Antibodies to HCV were not detected; does not exclude the possibility of exposure to HCVReactive Results are presumptive evidence of antibodies to HCV. Follow CDC recommendations for supplemental testing.Order confirmation testing: HCV Quant by PCR testing - HCVPCR #[id number] Non Reactive: < 0.8 Equivocal: >/= 0.8 to < 1.0 Reactive: >/= 1.0The CDC requires that a reactive/equivocal HCV antibody result be sent out for confirmation. HCV Quant by PCR testing. Herpes simplex virus (HSV) t ype 1 IgG antibody assayOrdered By: Judy Licona on 09-07-2024 Herpes Simplex Virus I IgG Antibody See comment [facility] Comment on above: RESULT: NON REACTIVE Please note reference interval changeHSV-1 IgG testing performed using the [employer] HSV-1IgG assay. L3890.6006on 09-07-2024 HIV No_Result Normal Nonreactive [facility] Comment on above: Result Comment: Non- Reactive Reactive Repeatedly reactive samples must be confirmed according to CDC recommended confirmatory algorithms. The subresults for either HIVAG or AHIV can be used as an aid in the selection of the confirmation algorithm for reactive samples. Send out specimens with Reactive results to [facility] for confirmation. Order the HIV antibody detection and differentiation: #[id number] Performed By: #### L 3400.1610, L509.8002, L3890.6006, L3890.6102, L3890.6301 ####[facility] [address] [facility], [address] L3890.6102on 09-07-2024 HEP B Surf Ag Non-Reactive Normal Nonreactive [facility] Comment on above: Result Comment: Reac tive: Presumptive evidence of HBV. Repeatedly reactive samples must be confirmed using a neutralization test ([employer] HBsAg Confirmatory Test) Non-Reactive: HBsAg not detected; does not exclude the possibility of exposure to HBV Performed By: #### L 3400.1610, L509.8002, L3890.6006, L3890.6102, L3890.6301 ####[facility] [address] [place], [address] L3890.6301on 09-07-2024 Hepatitis C Ab Non-Reactive Normal Nonreactive [facility] Comment on above: Result Comment: Reac tive: Presumptive evidence of antibodies to HCV. Follow CDC recommendations for supplemental testing. Non-Reactive: Antibodies to HCV were not detected; does not exclude the possibility of exposure to HCV Reactive Results are presumptive evidence of antibodies to HCV. Follow CDC recommendations for supplemental testing. Order confirmation testing: HCV Quant by PCR testing - HCVPCR #[id number] Non Reactive: < 0.8 Equivocal: >/= 0.8 to < 1.0 Reactive: >/= 1.0 The CDC requires that a reactive/equivocal HCV antibody result be sent out for confirmation. HCV Quant by PCR testing. Performed By: #### L 3400.1610, L509.8002, L3890.6006, L3890.6102, L3890.6301 ####[facility] [address] [place], [address] L509.8002on 09-07-2024 Syphilis Abs Non-Reactive Normal Nonreactive [facility] Comment on above: Performed By: #### L 3400.1610, L509.8002, L3890.6006, L3890.6102, L3890.6301 ####[facility] [address] [place], [address] Neisseria gonorrhoeae nuclei c acid detection by amplified probe techniqueOrdered By: Judy Licona on 09-07-2024 N. gonorrhoeae DNA BLADE+probe Ql (Unsp spec) Negative Negative [facility] Comment on above: Performed at: =[address] [id number] Director: Katelynn Arndt MD, Phone: [phone] No Panel InformationOrdered By: Judy Licona on 09-07-2024 HIV (1&2) Antibody No_Result Nonreactive [facility] Comment on above: Non-ReactiveReactive Repeatedly reactive samples must be confirmed according to CDC recommended confirmatory algorithms. The subresults for either HIVAG or AHIV can be used as an aid in the selection of the confirmation algorithm for reactive samples.Send out specimens with Reactive results to [facility] for confirmation.Order the HIV antibody detection and differentiation: #[id number] POC Bacterial Vaginitis (Rapid) Negative [facility] Cleaner Signs Office Visit Reporton 09-07-2024 Cleaner Signs Office Visit Report [facility]'s [address], [address] [place] [address] OFFICE VISIT Date of Service: 09/07/24 MR#: [id number] Acct: [id number] Name: MIRNA BERMUDEZ Rep #: [id number] : 1950 Provider: PETTY Medeiros ams Age/Sex: 73/F Location: [facility] [place] Status: Signed Intake Vital Signs 08/09/24 09:28 09/07/24 08:24 Height 5 ft 7 in 5 ft 7 in Weight: 205 lb 216 lb 2 oz BMI 32.1 33.8 BP 120/80 138/73 H Position Sitting Pulse 91 Temp 98.4 F Pulse Oximetry (%) 97 Oxygen Delivery Method room air Intake Visit Reasons: vaginal burning/lump/odor Chief Complaint: vaginal burning/lump/odor Is patient in pain?: No Allergies oxycodone (From Percocet) Adverse Reaction (Verified 09/07/24 08:28) Nightmares Medications ???Medication ???Instructions ???Recorded ???Confirmed ???Type No Flush Niacin 500 mg PO/SL DAILY 09/08/22 History Trace Minerals 1 cap PO/SL DAILY 09/08/22 5 History Tudh 500 mg PO/SL DAILY 09/08/22 History ascorbic acid (vitamin C) 1,000 mg 1 cap PO DAILY 09/08/22 09/07/24 History capsule,extended release ashwagandha root extract 300 mg 800 mg PO DAILY 09/08/22 09/07/24 History capsule cholecalciferol (vitamin D3) 50 100 mcg PO DAILY 09/08/22 09/07/24 History mcg (2,000 unit) tablet (Vitamin D3) thiamine HCl (vitamin B1) 500 mg 500 mg PO DAILY 09/08/22 09/07/24 History tablet vitamin B12 1,000 mcg-folic acid 1 tab sublingual DAILY 09/08/22 History 400 mcg sublingual tablet losartan 25 mg tablet 12.5 mg PO DAILY 10/19/23 09/07/24 History Is last menstrual period known: No Post menopausal: Yes Patient : No : No PFSH Medical History Post-menopausal Alcohol use Easy bruising Restless legs Gastric reflux CPAP (continuous positive airway pressure) dependence Non-smoker History of stress test Hypertension Hx of fracture of wrist Surgical History Hx of right cataract extraction Hx of left cataract extraction Hx of colonoscopy Hx of foot surgery Hx of tubal ligation Family History Brother Heart disease Hypertension High cholesterol Mother Heart disease High cholesterol Hypertension Social History current occupational status: retired Smoking Status: Never smoker alcohol intake: current details: one drink per week substance use type: does not use seatbelt use: always do you feel safe at home: Yes additional social history: HPI vaginal burning/lump/odor Details: MIRNA BERMUDEZ is a 73 year old who presents for constant vaginal burning and odor x 25 years. She reports having bouts of odor that other people notice and comment on at various times through the day. It became worse when she started taking a natural cleanse for the parasites 2-3 years ago. She has seen functional medicine and infectious disease for this and has been told the testing she did for parasite infections came back normal. She is feeling increased depression because of this as it is interfering with her social life. Denies vaginal bleeding, discharge. Pap in 2023 was normal. requesting STI testing. History 3 Elective abortions Hx Para 3 Spontaneous abortions Hx # Term Pregnancies Ectopic pregnancies Hx # Pregnancies Multiple births # of living children 3 Past Pregnancies Del. Date Name GA/Weeks Outcome Route Bth Weight Gen Labor Lgth Anesthesia Del Locatn Provider FOB Unknown Lisandra 1977 Unknown Juaquin 1981 Unknown Serina 1984 ROS Const Constitutional: Reports system reviewed and no additional complaints, except as documented Cardio Card: Reports system reviewed and no additional complaints, except as documented Resp Resp: Reports system reviewed and no additional complaints, except as documented GI GI: Reports system reviewed and no additional complaints, except as documented : Reports system reviewed and no additional complaints, except as documented; Denies difficulty voiding, dysuria or urinary frequency Skin Skin/Breast: Reports system reviewed and no additional complaints, except as documented Neuro Neuro: Reports system reviewed and no additional complaints, except as documented Psych Psych: Reports system reviewed and no additional complaints, except as documented Exam Const General: cooperative, healthy appearing, comfortable and no acute distress Resp Effort Inspection: normal respiratory effort, able to speak in complete sentences and symmetric chest movement GI Inspection: nor (more content not included)... Normal [facility] T. pallidum abOrdered By: Juan Licona on 09-07-2024 Syphilis Total Antibody Non-Reactive Nonreactive [facility] No Panel InformationOrdered By: Richard Esposito on 08-09-2024 Influenza Types A,B Rapid (Clinic) Pos FLU A &Neg FLU B [facility] S. pyogenes Ag IA.rapid Ql ( Throat)Ordered By: Richard Esposito on 08-09-2024 S. pyogenes Ag IA Ql (Unsp spec) Negative [facility] Urgent Care Visit Reporton 0 08-09-2024 Urgent Care Visit Report [facility] [address], [address] [place] [address] OFFICE VISIT Date of Service: 08/09/24 MR#: [id number] Acct: [id number] Name: MIRNA BERMUDEZ Rep #: [id number] : 1950 Provider: SHLOMO Whitfield Age/Sex: 73/F Location[place] [facility] [place] Status: Signed Intake Vital Signs 11/29/23 09:54 08/09/24 09:28 Height 5 ft 7 in 5 ft 7 in Weight: 205 lb BMI 32.1 BP 120/80 Position Sitting Pulse 91 Temp 98.4 F Temp Source Oral Pulse Oximetry (%) 97 Oxygen Delivery Method room air Intake Visit Reasons: SORE THROAT, HEADACHE Accompanied by: Self Allergies oxycodone (From Percocet) Adverse Reaction (Verified 08/09/24 09:28) Nightmares Medications ???Medication ???Instructions ???Recorded ???Confirmed ???Type Barley Belterra Juice Powder 1 pkg PO/SL DAILY 09/08/22 4 History DIM SUPPLEMENT 241 mg PO/SL DAILY 09/08/22 History Electrolyte Powder 1 pkg PO/SL DAILY 09/08/22 4 History Gallbladder Formul 2 cap PO/SL DAILY 09/08/22 4 History No Flush Niacin 500 mg PO/SL DAILY 09/08/22 History Raw Calcium 3 tab PO/SL DAILY 09/08/22 4 History Trace Minerals 1 cap PO/SL DAILY 09/08/22 4 History Tudh 500 mg PO/SL DAILY 09/08/22 History ascorbic acid (vitamin C) 1,000 mg 1 cap PO DAILY 09/08/22 11/29/23 History capsule,extended release ashwagandha root extract 300 mg 800 mg PO DAILY 09/08/22 11/29/23 History capsule betaine HCl 300 mg tablet 648 mg PO DAILY 09/08/22 11/29/23 History biotin 5 mg capsule 5 mg PO DAILY 09/08/22 11/29/23 Hi story cholecalciferol (vitamin D3) 50 100 mcg PO DAILY 09/08/22 11/29/23 History mcg (2,000 unit) tablet (Vitamin D3) multivit,Ca,tdf-thrg-MC- guarana-caff 2 tab PO DAILY 09/08/22 History 18 mg iron-400 mcg-180 mg tablet potassium 99 mg tablet 198 mg PO DAILY 09/08/22 11/29/23 History thiamine HCl (vitamin B1) 500 mg 500 mg PO DAILY 09/08/22 11/29/23 History tablet vitamin B12 1,000 mcg-folic acid 1 tab sublingual DAILY 09/08/22 History 400 mcg sublingual tablet estradiol 0.01% (0.1 mg/gram) See Rx Instructions vaginal 11/29/23 Rx vaginal cream .COMPLEX #42.5 grams losartan 25 mg tablet 12.5 mg PO DAILY 10/19/23 08/09/24 History oseltamivir 75 mg capsule (Tamiflu) 75 mg PO Q12H 5 days #10 caps 0 08/09/24 08/09/24 Rx Have you fallen in the past year?: No Nurse's Note: Patient has a ST,PRINGLE and fatigue and 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 [facility] Medical History Post-menopausal Alcohol use Easy bruising Restless legs Gastric reflux CPAP (continuous positive airway pressure) dependence Non-smoker History of stress test Hypertension Hx of fracture of wrist Surgical History Hx of right cataract extraction Hx of left cataract extraction Hx of colonoscopy Hx of foot surgery Hx of tubal ligation Family History Brother Heart disease Hypertension High cholesterol Mother Heart disease High cholesterol Hypertension Social History current occupational status: retired Smoking Status: Never smoker alcohol intake: current details: one drink per week substance use type: does not use seatbelt use: always do you feel safe at home: Yes additional social history: HPI HPI Details: MIRNA BERMUDEZ, is a 73 F who presents to the office today for complaint of cough, sore throat and fatigue for the past 2 days. Patient denies nausea, vomiting or diarrhea. No hemoptysis, shortness of breath or difficulty breathing. No loss of taste or smell. No other associated symptoms or alleviating/aggravating factors. ROS Const Constitutional: No other (6 system ROS completed with pertinent findings in the HPI otherwise normal.) Exam Const General: cooperative and well developed HENNH Head: normal to inspection and atraumatic Ears: hearing grossly normal bilaterally Nose: nasal discharge clear Face and sinus: normal facial exam Mouth: oral mucosae normal Throat: abnormal tonsil bilaterally hypertrophy 1+ Resp Effort Inspection: normal respiratory effort and no audible wheezes Auscultation: Bilateral: Clear to Auscultation Cardio Palpation: normal PMI Rate: regular rate Rhythm: regular rhythm Neuro General: patient alert and CN's II-XI intact bilaterally Psych Appearance: grossly normal Mental Status: mental status grossly normal Results POC Rapid Strep A Office Rapid Strep A Negative Last Edit by Sharyn Colunga MA on 08/09/24 09:43 (more content not included)... Normal [facility] CBC W Auto Differential pane l (Bld)on 05-10-2024 Basophils (Bld) [#/Vol] 0.03 10*3/uL Normal <0.11 [facility] Comment on above: Order Comment: Speci men Type: BLOOD SPECIMEN Ordering Facility: [facility] Address: [address] [place] [address] Performed By: #### 5 7021-8 #### [facility] CLIA [id number] [address] [place] [address] [place] Basophils/100 WBC (Bld) 0.3 % Normal [facility] Comment on above: Order Comment: Speci men Type: BLOOD SPECIMEN Ordering Facility: [facility] Address: [address] [place] [address] Performed By: #### 5 7021-8 #### [facility] CLIA [id number] [address] [place] [address] [place] Differential cell count method Nom (Bld) Auto Normal [facility] Comment on above: Order Comment: Speci men Type: BLOOD SPECIMEN Ordering Facility: [facility] Address: [address] [place] [address] Performed By: #### 5 7021-8 #### [facility] CLIA [id number] [address] [place] [address] [place] Eosinophils (Bld) [#/Vol] 0.05 10*3/uL Normal <0.46 [facility] Comment on above: Order Comment: Speci men Type: BLOOD SPECIMEN Ordering Facility: [facility] Address: [address] [place] [address] Performed By: #### 5 7021-8 #### [facility] CLIA [id number] [address] [place] [id number] [place] Eosinophils/100 WBC (Bld) 0.6 % Normal [facility] Comment on above: Order Comment: Speci men Type: BLOOD SPECIMEN Ordering Facility: [facility] Address: [address] [place] [address] Performed By: #### 5 7021-8 #### [facility] CLIA [id number] [address] [place] [address] [place] Erythrocyte distribution width (RBC) [Ratio] 12.8 % Normal 11.5-15.0 [facility] Comment on above: Order Comment: Speci men Type: BLOOD SPECIMEN Ordering Facility: [facility] Address: [address] [place] [address] Performed By: #### 5 7021-8 #### [facility] CLIA [id number] [address] [place] [address] [place] Hematocrit (Bld) [Volume fraction] 49.7 % High 36.0-46.0 [facility] Comment on above: Order Comment: Speci men Type: BLOOD SPECIMEN Ordering Facility: [facility] Address: [address] [place] [address] Performed By: #### 5 7021-8 #### [facility] CLIA [id number] [address] [place] [address] [place] Hemoglobin (Bld) [Mass/Vol] 15.8 g/dL High 11.5-15.5 [facility] Comment on above: Order Comment: Speci men Type: BLOOD SPECIMEN Ordering Facility: [facility] Address: [address] [place] [address] Performed By: #### 5 7021-8 #### [facility] CLIA [id number] [address] [place] [address] [place] Immature granulocytes (Bld) [#/Vol] 10*3/uL Normal <0.10 [facility] Comment on above: Order Comment: Speci men Type: BLOOD SPECIMEN Ordering Facility: [facility] Address: [address] [place] [address] Performed By: #### 5 7021-8 #### [facility] CLIA [id number] [address] [place] [address] [place] Immature granulocytes/100 WBC (Bld) 0.2 % Normal [facility] Comment on above: Order Comment: Speci men Type: BLOOD SPECIMEN Ordering Facility: [facility] Address: [address] [place] [address] Performed By: #### 5 7021-8 #### [facility] CLIA [id number] [address] [place] [address] [place] Lymphocytes (Bld) [#/Vol] 2.07 10*3/uL Normal 1.00-4.00 [facility] Comment on above: Order Comment: Speci men Type: BLOOD SPECIMEN Ordering Facility: [facility] Address: [address] [place] [address] Performed By: #### 5 7021-8 #### [facility] CLIA [id number] [address] [place] [address] [facility] Lymphocytes/100 WBC (Bld) 23.3 % Normal [facility] Comment on above: Order Comment: Speci men Type: BLOOD SPECIMEN Ordering Facility: [facility] Address: [address] [place] [address] Performed By: #### 5 7021-8 #### [facility] CLIA [id number] [address] [place] [address] [place] MCH (RBC) [Entitic mass] 28.8 pg Normal 26.0-34.0 [facility] Comment on above: Order Comment: Speci men Type: BLOOD SPECIMEN Ordering Facility: [facility] Address: [address] [place] [address] Performed By: #### 5 7021-8 #### [facility] CLIA [id number] [address] [place] [address] [place] MCHC (RBC) [Mass/Vol] 31.8 g/dL Normal 30.5-36.0 [facility] Comment on above: Order Comment: Speci men Type: BLOOD SPECIMEN Ordering Facility: [facility] Address: [address] [place] [address] Performed By: #### 5 7021-8 #### [facility] CLIA [id number] [address] [place] [address] [place] MCV (RBC) [Entitic vol] 90.7 fL Normal 80.0-100.0 [facility] Comment on above: Order Comment: Speci men Type: BLOOD SPECIMEN Ordering Facility: [facility] Address: [address] [place] [address] Performed By: #### 5 7021-8 #### [facility] CLIA [id number] [address] [place] [address] [place] Monocytes (Bld) [#/Vol] 0.63 10*3/uL Normal <0.87 [facility] Comment on above: Order Comment: Speci men Type: BLOOD SPECIMEN Ordering Facility: [facility] Address: [address] [place] [address] Performed By: #### 5 7021-8 #### [facility] CLIA [id number] [address] [place] Monocytes/100 WBC (Bld) 7.1 % Normal [facility] Comment on above: Order Comment: Speci men Type: BLOOD SPECIMEN Ordering Facility: [facility] Address: [address] [place] [address] Performed By: #### 5 7021-8 #### [facility] CLIA [id number] [address] [place] [address] [place] Neutrophils (Bld) [#/Vol] 6.07 10*3/uL Normal 1.45-7.50 [facility] Comment on above: Order Comment: Speci men Type: BLOOD SPECIMEN Ordering Facility: [facility] Address: [address] [place] [address] Performed By: #### 5 7021-8 #### [facility] CLIA [id number] [address] [place] Neutrophils/100 WBC (Bld) 68.5 % Normal [facility] Comment on above: Order Comment: Speci men Type: BLOOD SPECIMEN Ordering Facility: [facility] Address: [address] [place] [address] Performed By: #### 5 7021-8 #### [facility] CLIA [id number] [address] [place] [address] [place] Nucleated RBC (Bld) [#/Vol] Normal [facility] Comment on above: Order Comment: Speci men Type: BLOOD SPECIMEN Ordering Facility: [facility] Address: [address] [place] [address] Performed By: #### 5 7021-8 #### [facility] CLIA [id number] [address] [place] [address] [place] Nucleated RBC/100 WBC (Bld) [Ratio] Normal [facility] Comment on above: Order Comment: Speci men Type: BLOOD SPECIMEN Ordering Facility: [facility] Address: [address] [place] [address] Performed By: #### 5 7021-8 #### [facility] CLIA [id number] [address] [place] [address] [place] Platelet mean volume (Bld) [Entitic vol] 9.8 fL Normal 9.0-12.7 [facility] Comment on above: Order Comment: Speci men Type: BLOOD SPECIMEN Ordering Facility: [facility] Address: [address] [place] [address] Performed By: #### 5 7021-8 #### [facility] CLIA [id number] [address] [place] [address] [place] Platelets (Bld) [#/Vol] 188 10*3/uL Normal 150-400 [facility] Comment on above: Order Comment: Speci men Type: BLOOD SPECIMEN Ordering Facility: [facility] Address: [address] [place] [address] Performed By: #### 5 7021-8 #### [facility] CLIA [id number] [address] [place] [address] [place] RBC (Bld) [#/Vol] 5.48 10*6/uL High 3.90-5.20 [facility] Comment on above: Order Comment: Speci men Type: BLOOD SPECIMEN Ordering Facility: [facility] Address: [address] [place] [address] Performed By: #### 5 7021-8 #### [facility] CLIA [id number] [address] [place] [address] [facility] WBC (Bld) [#/Vol] 8.87 10*3/uL Normal 3.70-11.00 [facility] Comment on above: Order Comment: Speci men Type: BLOOD SPECIMEN Ordering Facility: [facility] Address: [address] [place] [address] Performed By: #### 5 7021-8 #### [facility] CLIA [id number] [address] [place] [address] [facility] Comprehensive metabolic 2000 panelon 05-10-2024 Albumin [Mass/Vol] 3.9 g/dL Normal 3.9-4.9 [facility] Comment on above: Order Comment: Speci men Type: BLOOD SPECIMEN Ordering Facility: [facility] Address: [address] [place] [address] Performed By: #### 2 4323-8 #### [facility] CLIA [id number] [address] ALP [Catalytic activity/Vol] 78 U/L Normal 34-123 [facility] Comment on above: Order Comment: Speci men Type: BLOOD SPECIMEN Ordering Facility: [facility] Address: [address] [place] [address] Performed By: #### 2 4323-8 #### [facility] CLIA [id number] [address] [place] [address] [facility] ALT With P-5'-P [Catalytic activity/Vol] 30 U/L Normal 7-38 [facility] Comment on above: Order Comment: Speci men Type: BLOOD SPECIMEN Ordering Facility: [facility] Address: [address] [place] [address] Performed By: #### 2 4323-8 #### [facility] CLIA [id number] [address] [place] [address] [place] Anion gap [Moles/Vol] 10 mmol/L Normal 8-15 [facility] Comment on above: Order Comment: Speci men Type: BLOOD SPECIMEN Ordering Facility: [facility] Address: [address] [place] [address] Performed By: #### 2 4323-8 #### [facility] CLIA [id number] [address] [place] [address] [place] AST With P-5'-P [Catalytic activity/Vol] 25 U/L Normal 13-35 [facility] Comment on above: Order Comment: Speci men Type: BLOOD SPECIMEN Ordering Facility: [facility] Address: [address] [place] [address] Performed By: #### 2 4323-8 #### [facility] CLIA [id number] [address] [place] [address] [place] Bilirubin [Mass/Vol] 0.6 mg/dL Normal 0.2-1.3 [facility] Comment on above: Order Comment: Speci men Type: BLOOD SPECIMEN Ordering Facility: [facility] Address: [address] [place] [address] Performed By: #### 2 4323-8 #### [facility] CLIA [id number] [address] [place], [place] [address] [place] [address] [place] Calcium [Mass/Vol] 9.9 mg/dL Normal 8.5-10.2 [facility] Comment on above: Order Comment: Speci men Type: BLOOD SPECIMEN Ordering Facility: [facility] Address: [address] [place] [address] Performed By: #### 2 4323-8 #### [facility] CLIA [id number] [address] [place] [address] [place] Chloride [Moles/Vol] 105 mmol/L Normal 98-107 [facility] Comment on above: Order Comment: Speci men Type: BLOOD SPECIMEN Ordering Facility: [facility] Address: [address] [place] [address] Performed By: #### 2 4323-8 #### [facility] CLIA [id number] [address] [place] [address] [place] CO2 [Moles/Vol] 25 mmol/L Normal 22-30 [facility] Comment on above: Order Comment: Speci parker Type: BLOOD SPECIMEN Ordering Facility: [facility] Address: [address] [place] [address] Performed By: #### 2 4323-8 #### [facility] CLIA [id number] [address] [place] [address] [place] Creatinine [Mass/Vol] 0.91 mg/dL Normal 0.58-0.96 [facility] Comment on above: Order Comment: Hinai men Type: BLOOD SPECIMEN Ordering Facility: [facility] Address: [address] [place] [address] Performed By: #### 2 4323-8 #### [facility] CLIA [id number] [address] Creatinine and Glomerular filtration rate.predicted panel (S/P/Bld) 66 mL/min/1.73m??? Normal >=60 [facility] Comment on above: Order Comment: Ronn canales Type: BLOOD SPECIMEN Ordering Facility: [facility] Address: [address] [place] [address] Result Comment: Shirley mated Glomerular Filtration Rate (eGFR) is calculated using the 2020 CKD-EPI creatinine equation. This equation utilizes serum creatinine, sex, and age as parameters. The creatinine assay has traceable calibration to isotope dilution-mass spectrometry. Refer to KDIGO guidelines for clinical interpretation. In patients with unstable renal function, e.g. those with acute kidney injury, the eGFR may not accurately reflect actual GFR. Performed By: #### 2 4323-8 #### [facility] CLIA [id number] [address] [place] [address] [place] Glucose [Mass/Vol] 107 mg/dL High 74-99 [facility] Comment on above: Order Comment: Hinai men Type: BLOOD SPECIMEN Ordering Facility: [facility] Address: [address] [id number] Result Comment: The [place] [employer] (ADA) provides guidance for cutoff values for fasting glucose and random glucose. The ADA defines fasting as no caloric intake for at least 8 hours. Fasting plasma glucose results between 100 to 125 mg/dL indicate increased risk for diabetes (prediabetes). Fasting plasma glucose results greater than or equal to 126 mg/dL meet the criteria for diagnosis of diabetes. In the absence of unequivocal hyperglycemia, results should be confirmed by repeat testing. In a patient with classic symptoms of hyperglycemia or hyperglycemic crisis, random plasma glucose results greater than or equal to 200 mg/dL meet the criteria for diagnosis of diabetes. Reference: Standards of Medical Care in Diabetes 2016, [place] [employer]. Diabetes Care. 2016.39(Suppl 1). Performed By: #### 2 4323-8 #### [facility] CLIA [id number] [address] [place] [address] [place] Potassium [Moles/Vol] 4.7 mmol/L Normal 3.7-5.1 [facility] Comment on above: Order Comment: Ronn men Type: BLOOD SPECIMEN Ordering Facility: [facility] Address: [address] [place] [address] Performed By: #### 2 4323-8 #### [facility] CLIA [id number] [address] [place] [address] [place] Protein [Mass/Vol] 6.6 g/dL Normal 6.3-8.0 [facility] Comment on above: Order Comment: Ronn men Type: BLOOD SPECIMEN Ordering Facility: [facility] Address: [address] [place] [address] Performed By: #### 2 4323-8 #### [facility] CLIA [id number] [address] [place] [address] [place] Sodium [Moles/Vol] 140 mmol/L Normal 136-144 [facility] Comment on above: Order Comment: Ronn men Type: BLOOD SPECIMEN Ordering Facility: [facility] Address: [address] [id number] Performed By: #### 2 4323-8 #### [facility] CLIA [id number] [address] [place] [address] [place] Urea nitrogen [Mass/Vol] 17 mg/dL Normal 7- [facility] Comment on above: Order Comment: Speci men Type: BLOOD SPECIMEN Ordering Facility: [facility] Address: [address] [place] [address] Performed By: #### 2 4323-8 #### [facility] CLIA [id number] [address] [place] [address] [place] ECG COMPLETEon 05-10-2024 ECG COMPLETE Ventricular Rate : 6 7 BPM Atrial Rate : 67 BPM P-R Interval : 162 ms QRS Duration : 68 ms Q-T Interval : 378 ms QTC Calculation(Bazett) : 399 ms Calculated P Sipsey : 26 degrees Calculated R Sipsey : -4 degrees Calculated T Sipsey : 24 degrees NORMAL SINUS RHYTHM LOW VOLTAGE QRS SEPTAL INFARCT , AGE UNDETERMINED ABNORMAL ECG NO PREVIOUS ECGS AVAILABLE Confirmed by MD SHIPMAN VINAYAK ([id number]) on 05/10/2024 11:18:51 PM NAME : MIRNA BREMUDEZ PID : [id number] : 1950 Gender : Female Race : ORD : [id number] Procedure Date : May 10 2024 10:28:17 Edit Date : May 10 2024 23:18:54 Diagnosis: NORMAL SINUS RHYTHM LOW VOLTAGE QRS SEPTAL INFARCT , AGE UNDETERMINED ABNORMAL ECG NO PREVIOUS ECGS AVAILABLE Confirmed by MD SHIPMAN VINAYAK ([id number]) on 05/10/2024 11:18:51 PM Test Reason : Chest Pain Location : 191 : [facility]ARD ED Overread By : MD SHIPMAN VINAYAK Edited By : MD SHIPMAN VINAYAK Referred By : , Acquired by : VICKI MCRAE [facility] ED NOTEon 05-10-2024 ED NOTE HNO ID: [id number] Author: STAS FIORE RN Service: ? Author Type: Registered Nurse Type: ED Notes Filed: 05/15/2024 17:53 Note Text: Chart accessed on 05-15-24 for chart audit pi [facility] ED NOTE HNO ID: [id number] Author: JAYLEN SENA, NEREIDA Service: Nursing Author Type: Registered Nurse Type: ED Notes Filed: 05/10/2024 12:34 Note Text: Pt verbalizes understanding of discharge instructions. Pt able to ambulate out of ED. Normal [facility] ED NOTE HNO ID: [id number] Author: SARAHY ZAVALA RN Service: Emergency Medicine Author Type: Registered Nurse Type: ED Notes Filed: 05/10/2024 10:23 Note Text: Pt sts has had a GI bug for past 2 weeks, but last few days has had chest tightness called PCP and has a appointment at 3 pm but could not wait. Normal [facility] ED PROV NOTEon 05-10-2024 ED PROV NOTE HNO ID: [id number] Author: LIVAN HUTCHISON MD Service: ? Author Type: Physician Type: ED Provider Notes Filed: 05/11/2024 02:07 Note Text: ED Provider Note Patient Name: Mirna Bermudez : 1950 SERVICE DATE: 05/10/24 History Patient presents with: Chest Pain Patient presents with chest tightness. She had nausea vomiting and diarrhea that initially started about 2 weeks ago. It resolved after for 5 days. The last few days she has been having some chest tightness and mild coughing. She is concerned she could have pneumonia. Is had no fevers or chills. No myalgias. Some mild fatigue. No shortness of breath. No leg pain or swelling. No recent travel or surgeries. No history of cancer. No history of DVT or PE. 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 Unspecified vitamin D deficiency 09/2008 27.4 rec tx 01/02 48 PAST SURGICAL HISTORY Procedure Laterality Date COLONOSCOPY 09/11/15 /Rpt in 5 years COLONOSCOPY FLX DX W/COLLJ SPEC WHEN PFRMD 2004 Colonoscopy POLYPS COLONOSCOPY FLX DX W/COLLJ SPEC WHEN PFRMD 2008 Colonoscopy ESOPHAGOGASTRODUODENOSCO PY TRANSORAL DIAGNOSTIC EGD HIATAL HERNIA HYSTEROSCOPY 2009 polyp of uterus HYSTEROSCOPY, DIAGNOSTIC (SEPARATE 09/2006 POLYPS LIG/TRNSXJ FLP TUBE ABDL/VAG APPR UNI/BI Bilateral AGE 34 PAST SURGICAL HISTORY OF 2000 Tarsal tunnel surgery on left foot REMOVE TONSILS/ADENOIDS,12+ Y/O age 16 WRIST SURGERY HX Left 2000 external fixation for shattered left wrist FAMILY HISTORY Problem Relation Age of Onset Coronary Artery Disease Mother triple bypass age 79, age 87 Coronary Artery Disease Brother triple bypass age 52 Stroke Father age 72 other (healthy) Sister other (healthy) Brother other (healthy) Daughter other (healthy) Son other (healthy) Daughter Breast Cancer No Family History Cervical Cancer No Family History Ovarian cancer No Family History Uterine Cancer No Family History Colon Cancer No Family History Pancreatic Cancer No Family History Prostate Cancer No Family History Social History Tobacco Use Smoking status: Former Current packs/day: 0.50 Average packs/day: 0.5 packs/day for 1 year (0.5 ttl pk-yrs) Types: Cigarettes Smokeless tobacco: Never Tobacco comments: QUIT AT AGE 17 Substance and Sexual Activity Alcohol use: Yes Comment: SOCIAL Drug use: No Sexual activity: Yes Partners: Male control/protection: Surgical Comment: TL ALLERGIES Allergen Reactions No Known Medication* Percocet [Oxycodone* Other: See Comments Pt states she had horrible nightmares Review of Systems Constitutional: Negative. HENT: Negative. Eyes: Negative. Respiratory: Positive for chest tightness. Cardiovascular: Negative. Gastrointestinal: Negative. Endocrine: Negative. Genitourinary: Negative. Musculoskeletal: Negative. Skin: Negative. Allergic/Immunologic: Negative. Neurological: Negative. Hematological: Negative. Psychiatric/Behavioral: Negative. Physical Exam Vitals [05/10/24 1013] BP Pulse Temp Temp src Resp SpO2 Weight Height 154/77 (!) 98 36.5 ?C (97.7 ?F) -- 16 98 % 90.7 kg (200 lb) -- Physical Exam Vitals and nursing note reviewed. Constitutional: Appearance: She is well-developed. HENT: Head: Atraumatic. Eyes: Extraocular Movements: Extraocular movements intact. Conjunctiva/sclera: Conjunctivae normal. Cardiovascular: Rate and Rhythm: Normal rate and regular rhythm. Heart sounds: Normal heart sounds. No murmur heard. Pulmonary: Effort: Pulmonary effort is normal. Breath sounds: Normal breath sounds. Abdominal: General: Bowel sounds are normal. There is no distension. Palpations: Abdomen is soft. Tenderness: There is no abdominal tenderness. There is no guarding or rebound. Musculoskeletal: General: Normal range of motion. Cervical back: Normal range of motion and neck supple. Right lower leg: No tenderness. No edema. Left lower leg: No tenderness. No edema. Skin: General: Skin is warm and dry. Neurological: General: No focal deficit present. Mental Status: She is alert and oriented to person, place, and time. Diagnostic Testing ED Labs Ordered and Reviewed COMPREHENSIVE METABOLIC PANEL - Abnormal; Notable for the following components: Result Value Ref Range Glucose 107 (*) 74 - 99 mg/dL All other (more content not included)... Normal [facility] HIGH SENSITIVITY TROPONIN T (INITIAL)on 05-10-2024 Troponin T.cardiac High sensitivity method [Mass/Vol] 7 ng/L Normal <12 [facility] Comment on above: Order Comment: Ronn canales Type: BLOOD SPECIMEN Ordering Facility: [facility] Address: [address] [place] [address] Performed By: #### L [id number] #### [facility] CLIA [id number] [address] [place] [address] HIGH SENSITIVITY TROPONIN T (SECOND)on 05-10-2024 Troponin T.cardiac High sensitivity method [Mass/Vol] 7 ng/L Normal <12 [facility] Comment on above: Order Comment: Ronn canales Type: BLOOD SPECIMEN Ordering Facility: [facility] Address: [address] [place] [address] Performed By: #### L [id number] #### [facility] CLIA [id number] [address] [place], [place] [id number] [place] XR CHEST 2V FRONTAL/LATon XR CHEST 2V FRONTAL/LAT * * *Final Report* * * DATE OF EXAM: May 10 2024 10:37AM LDX 5291 - XR CHEST 2V FRONTAL/LAT / PROCEDURE REASON: Chest Pain * * * * Physician Interpretation * * * * EXAMINATION: CHEST RADIOGRAPH (2 VIEW FRONTAL and LATERAL) CLINICAL HISTORY: Chest Pain MQ: XC2_6 EXAM DATE/TIME: 05/10/2024 10:37 AM COMPARISON: No relevant prior studies available. RESULT: Lines, tubes, and devices: None. Lungs and pleura: No pneumothorax, pleural effusion or consolidation. Cardiomediastinal silhouette: Normal cardiomediastinal silhouette. Bones and soft tissues: Generative changes in the thoracic spine. IMPRESSION: No acute radiographic abnormality. 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 Authentication Interface Message Text 04/03/24: Spoke w/Patient; Apologized for mass Community Received phone calls/Apology Accepted/cdg Normal [facility] AUTO DIFFon 02-24-2024 Baso Count 0.06 x1000 Normal 0.00-0.20 [facility] Comment on above: Performed By: #### 9 965152, 744641, 647533, 237689, 210997, 598947 #### [facility] [address] [place] [address] Field Health Officer: Kb Cuellar MD Basos % 0.8 % Normal [facility] Comment on above: Performed By: #### 9 714056, 627926, 011155, 204664, 252018, 153199 #### [facility] [address] [place], [place] [address] Field Health Officer: Kb Cuellar MD Eos Count 0.12 x1000 Normal 0.00-0.50 [facility] Comment on above: Performed By: #### 9 022405, 862962, 426341, 598039, 665616, 064517 #### [facility] [address] [place], [place] [address] Field Health Officer: Kb Cuellar MD Eosinophils/100 WBC (Bld) 1.8 % Normal [facility] Comment on above: Performed By: #### 9 063525, 440550, 996915, 882306, 451900, 212168 #### [facility] [address] [place] [address] Field Health Officer: Kb Cuellar MD Lymph Count 2.14 x1000 Normal 1.20-4.80 [facility] Comment on above: Performed By: #### 9 227484, 265681, 245485, 873179, 117499, 759859 #### [facility] [address] [place] [address] Field Health Officer: Kb Cuellar MD Lymphocytes/100 WBC (Bld) 32.2 % Normal [facility] Comment on above: Performed By: #### 9 422369, 355017, 809649, 179012, 983442, 120172 #### [facility] [address] [place] [address] Field Health Officer: Kb Cuellar MD [place] Count 0.53 x1000 Normal 0.10-1.00 [facility] Comment on above: Performed By: #### 9 936394, 911630, 222949, 405646, 557865, 448454 #### [facility] [address] [place] [address] Field Health Officer: Kb Cuellar MD Monocytes/100 WBC (Bld) 8.0 % Normal [facility] Comment on above: Performed By: #### 9 367733, 381506, 958411, 863766, 274035, 736320 #### [facility] [address] [place] [address] Field Health Officer: Kb Cuellar MD Neutrophil Count (ANC) 3.78 x1000 Normal 1.40-8.80 [facility] Comment on above: Performed By: #### 9 432369, 327180, 016654, 207517, 486158, 605256 #### [facility] [address] [place] [address] Field Health Officer: Kb Cuellar MD Neutrophils/100 WBC (Bld) 57.1 % Normal [facility] Comment on above: Performed By: #### 9 169993, 953064, 035489, 198993, 575472, 008551 #### [facility] [address] [place] [address] Field Health Officer: Kb Cuellar MD COMPMETAon 02-24-2024 Albumin [Mass/Vol] 3.9 g/dL Normal 3.4-5.0 [facility] Comment on above: Order Comment: Order ed on Fin# [id number] Performed By: #### 9 175461, 783764, 507323, 720322, 315171, 189060 ####[facility] [address] [place], [place] [address]) [phone] Director: Kb Cuellar MD Albumin/Globulin [Mass ratio] 1.3 {ratio} Normal [facility] Comment on above: Order Comment: Order ed on Fin# [id number] Performed By: #### 9 141645, 409502, 384044, 449021, 627935, 040524 ####[facility] [address] [place], [place] [address]) [phone] Director: Kb Cuellar MD Alk Phos 66 unit/L Normal 45-117 [facility] Comment on above: Order Comment: Order ed on Fin# [id number] Performed By: #### 9 412247, 975283, 255552, 331828, 754476, 778408 ####[facility] [address] [place], [place] [address]) [phone] Director: Kb Cuellar MD Bilirubin [Mass/Vol] 0.60 mg/dL Normal 0.30-1.20 [facility] Comment on above: Order Comment: Order ed on Fin# [id number] Result Comment: Use of this assay is not recommended for patients undergoing treatment with eltrombopag due to the potential for falsely elevated results. Performed By: #### 9 315069, 101008, 803796, 637386, 535352, 463146 ####[facility] [address] [place] [address] Medical Director: Kb Cuellar MD Calcium [Mass/Vol] 9.3 mg/dL Normal 8.7-10.4 [facility] Comment on above: Order Comment: Order ed on Fin# [id number] Performed By: #### 9 131524, 402056, 297915, 869736, 918036, 574568 ####[facility] [address] [place] [address] Medical Director: Kb Cuellar MD Chloride [Moles/Vol] 110 mmol/L High 98-107 [facility] Comment on above: Order Comment: Order ed on Fin# [id number] Performed By: #### 9 182082, 508392, 184175, 748489, 527911, 072064 ####[facility] [address] [place] [address] Medical Director: Kb Cuellar MD CO2 [Moles/Vol] 24.0 mmol/L Normal 20.0-31.0 [facility] Comment on above: Order Comment: Order ed on Fin# [id number] Performed By: #### 9 537551, 817477, 006145, 124339, 543891, 258945 ####[facility] [address] [place] [address] Medical Director: Kb Cuellar MD Creatinine [Mass/Vol] 1.0 mg/dL High 0.5-0.8 [facility] Comment on above: Order Comment: Order ed on Fin# [id number] Performed By: #### 9 990374, 750915, 440192, 758796, 686968, 035765 ####[facility] [address] [place] [address] Medical Director: Kb Cuellar MD GFR AA >60 Normal [facility] Comment on above: Order Comment: Order ed on [facility]# [id number] Result Comment: Afri can [place] GFR Calc Medical judgement is necessary to interpret GFR. The calculated GFR may not accurately reflect renal status in patients >70 years, women, acutely ill hospitalized patients and patients with acute renal failure or known renal disease. The MDRD GFR formula is valid only for adults greater than 18 years of age. Note: Creatinine clearance (not GFR) should be used for drug dosing. Performed By: #### 9 710758, 921045, 697357, 269163, 217018, 823952 ####[facility] [address] [place], [place] [address] Medical Director: Kb Cuellar MD Globulin (S) [Mass/Vol] 2.9 g/dL Normal [facility] Comment on above: Order Comment: Order ed on [facility]# [id number] Performed By: #### 9 071736, 858999, 141879, 609627, 499724, 523842 ####[facility] [address] [place] [address] Medical Director: Kb Cuellar MD Glomerular Filtration Rate 54 mL/min/1.73m? Normal [facility] Comment on above: Order Comment: Order ed on [facility]# [id number] Result Comment: Non- GFR Calc Medical judgement is necessary to interpret GFR. The calculated GFR may not accurately reflect renal status in patients >70 years, women, acutely ill hospitalized patients and patients with acute renal failure or known renal disease. The MDRD GFR formula is valid only for adults greater than 18 years of age. Note: Creatinine clearance (not GFR) should be used for drug dosing. Performed By: #### 9 595422, 423992, 887343, 012154, 659850, 808992 ####[facility] [address] [place] [address] Medical Director: Kb Cuellar MD Glucose [Mass/Vol] 98 mg/dL Normal 74-106 [facility] Comment on above: Order Comment: Order ed on Fin# [id number] Performed By: #### 9 543369, 530361, 609017, 204996, 790333, 658091 ####[facility] [address] [place], [place] [address]) [phone] Director: Kb Cuellar MD GOT 19 unit/L Normal 15-37 [facility] Comment on above: Order Comment: Order ed on Fin# [id number] Performed By: #### 9 359050, 894279, 648711, 847276, 120438, 397108 ####[facility] [address] [place] [address] Medical Director: Kb Cuellar MD GPT 19 unit/L Normal 10-49 [facility] Comment on above: Order Comment: Order ed on Fin# [id number] Performed By: #### 9 083396, 785162, 171766, 610959, 228084, 909316 ####[facility] [address] [place], [place] [address]) [phone] Director: Kb Cuellar MD Osmolality [Osmolality] 283 mosm/kg Normal 275-295 [facility] Comment on above: Order Comment: Order ed on Fin# [id number] Performed By: #### 9 156505, 773543, 709713, 496062, 797284, 818438 ####[facility] [address] [place], [place] [address]) [phone] Director: Kb Cuellar MD Potassium [Moles/Vol] 4.3 mmol/L Normal 3.5-5.1 [facility] Comment on above: Order Comment: Order ed on Fin# [id number] Result Comment: Spec imen slightly hemolyzed. Results may be affected. Performed By: #### 9 827974, 685204, 787748, 892830, 481126, 024769 ####[facility] [address] [place] [address] Medical Director: Kb Cuellar MD Protein [Mass/Vol] 6.8 g/dL Normal 5.7-8.2 [facility] Comment on above: Order Comment: Order ed on Fin# [id number] Result Comment: Tota l Protein results may be increased in patients receiving dextran as a blood volume human factors advisor lead Performed By: #### 9 333287, 347980, 487887, 349621, 531121, 559351 ####[facility] [address] [place] [address] Medical Director: Kb Cuellar MD Sodium [Moles/Vol] 141 mmol/L Normal 135-145 [facility] Comment on above: Order Comment: Order ed on Fin# [id number] Performed By: #### 9 783994, 669499, 538626, 654686, 832750, 412996 ####[facility] [address] [place] [address] Medical Director: Kb Cuellar MD Urea nitrogen [Mass/Vol] 17 mg/dL Normal 9-23 [facility] Comment on above: Order Comment: Order ed on Fin# [id number] Result Comment: - Ve nipuncture should occur prior to N-Acetyl Cysteine (NAC) or Metamizole (Sulpyrine) administration due to the potential for falsely depressed results. - Blood samples from some patients with monoclonal gammopathies may produce falsely elevated results Performed By: #### 9 892012, 407947, 414763, 865171, 267726, 666507 ####[facility] [address] [place] [address] Medical Director: Kb Cuellar MD Urea nitrogen/Creatinine [Mass ratio] 17.0 mg/mg Normal [facility] Comment on above: Order Comment: Order ed on Fin# [id number] Performed By: #### 9 281421, 484987, 094370, 131068, 569638, 855081 ####[facility] [address] [place] [address] Medical Director: Kb Cuellar MD FERRITINon 02-24-2024 Ferritin [Mass/Vol] 21 ng/mL Normal 10-291 [facility] Comment on above: Order Comment: Order ed on Fin# [id number] Result Comment: Seru m ferritin values are elevated in the presence of the following conditions and do not reflect actual body iron stores: - Inflammation - Significant tissue destruction - Liver disease - Malignancies such as acute leukemia and Hodgkin?s disease - Therapy with iron supplements Performed By: #### 9 253967, 925691, 592123, 240189, 388572, 819398 ####[facility] [address] [place] [address] Medical Director: Kb Cuellar MD HEMOon 02-24-2024 DIFF? No Normal [facility] Comment on above: Performed By: #### 9 788181, 039323, 162918, 668430, 159426, 331658 #### [facility] [address] [place] [address] Field Health Officer: Kb Cuellar MD Erythrocyte distribution width (RBC) [Ratio] 14.6 % High 11.5-14.5 [facility] Comment on above: Performed By: #### 9 103962, 369737, 452705, 086358, 438047, 907789 #### [facility] [address] [place] [address] Field Health Officer: Kb Cuellar MD Hematocrit (Bld) [Volume fraction] 45.2 % Normal 36.0-46.0 [facility] Comment on above: Performed By: #### 9 588462, 730097, 524628, 959042, 383605, 131451 #### [facility] [address] [place] [address] Field Health Officer: Kb Cuellar MD Hemoglobin (Bld) [Mass/Vol] 14.9 g/dL Normal 12.0-16.0 [facility] Comment on above: Performed By: #### 9 414266, 943996, 292961, 144724, 143833, 243682 #### [facility] [address] [place] [address] Field Health Officer: Kb Cuellar MD Instr WBC 6.6 Normal [facility] Comment on above: Performed By: #### 9 782775, 941230, 456790, 539247, 275734, 632490 #### [facility] [address] [place] [address] Field Health Officer: Kb Cuellar MD MCH (RBC) [Entitic mass] 29.1 pg Normal 27.0-34.0 [facility] Comment on above: Performed By: #### 9 913108, 175398, 558996, 241879, 882818, 136737 #### [facility] [address] [place] [address] Field Health Officer: Kb Cuellar MD MCHC (RBC) [Mass/Vol] 33.0 g/dL Normal 32.0-37.0 [facility] [facility] [place] Comment on above: Performed By: #### 9 015687, 160984, 106737, 944675, 064916, 307441 #### [facility] [address] [place] [address] Field Health Officer: Kb Cuellar MD MCV (RBC) [Entitic vol] 88.1 fL Normal 80.0-100.0 [facility] Comment on above: Performed By: #### 9 489354, 911378, 126543, 977028, 996655, 499362 #### [facility] [address] [place] [address] Field Health Officer: Kb Cuellar MD Nucleated RBC 0 /100WBC Normal [facility] Comment on above: Performed By: #### 9 825789, 238267, 452166, 986965, 835505, 592485 #### [facility] [address] [place] [address] Field Health Officer: Kb Cuellar MD Platelet 171 x10 Normal 150-450 [facility] Comment on above: Performed By: #### 9 587773, 517179, 525464, 763559, 520364, 009663 #### [facility] [address] [place] [address] Field Health Officer: Kb Cuellar MD Platelet mean volume (Bld) [Entitic vol] 7.9 fL Normal 7.4-10.4 [facility] Comment on above: Performed By: #### 9 697174, 085341, 407412, 838988, 285684, 258657 #### [facility] [address] [place] [address] Field Health Officer: Kb Cuellar MD RBC 5.13 x10 Normal 4.20-5.40 [facility] Comment on above: Result Comment: Note : RBC morphology is normal unless otherwise stated. Evaluation performed only if differential is requested. Performed By: #### 9 917870, 178512, 545356, 229293, 538876, 544020 #### [facility] [address] [place] [address] Field Health Officer: Kb Cuellar MD WBC 6.6 x10 Normal 4.5-11.0 [facility] Comment on above: Performed By: #### 9 803566, 940898, 630163, 600321, 025545, 945212 #### [facility] [address] [place] [address] Field Health Officer: Kb Cuellar MD IRON GROUPon 02-24-2024 Iron [Mass/Vol] 59 ug/dL Normal 50-170 [facility] Comment on above: Order Comment: Order ed on Fin# [id number] Result Comment: Resu lts may be inaccurate if performed within 14 days of IV iron dextran administration. Performed By: #### 9 218971, 497434, 250463, 421102, 591470, 513519 ####[facility] [id number] [place] [address] Medical Director: Kb Cuellar MD Saturation 17.1 % Low 20.0-50.0 [facility] Comment on above: Order Comment: Order ed on Fin# [id number] Performed By: #### 9 329969, 859616, 561654, 036455, 287387, 400176 ####[facility] [address] [place] [address] Medical Director: Kb Cuellar MD TIBC 345 ug/ml Normal 250-425 [facility] Comment on above: Order Comment: Order ed on Fin# [id number] Result Comment: Resu lts may be inaccurate if performed within 14 days of IV iron dextran administration. Performed By: #### 9 775550, 004865, 278977, 113396, 732104, 323080 ####[facility] [id number] [place] [address] Medical Director: Kb Cuellar MD [facility] Nursing Progress Note on 02-24-2024 [facility] Nursing Progress Note PATIENT SEEN IN CLINIC WITH MILADIS MARTIN FOR FOLLOW UP SECONDARY POLYCYTHEMIA. LABS AT [facility] IN 6 MONTHS. FOLLOW UP WITH EM IN 12 MONTHS WITH LABS. Normal [facility] MedOnc-OP Visit Summaryon MedOnc-OP Visit Summary MIRNA BERMUDEZ :1950 Registration Date:02/24/2024 Oncology Ambulatory Visit Instructions Your Diagnosis Secondary polycythemia Your Care Team Attending Physician - VITEK MINE ENGINEERING SUPERINTENDENT, EM Discharge Vitals Temperature (Oral) 98.1 ?F (36.7 ?C) Heart Rate (Peripheral) 74 Respiratory Rate 16 Blood Pressure 120/79 Height 68.00 in (172.72 cm) Height 68.00 in (172.72 cm) Weight 216.53 lb (98.2 kg) Weight (Dosing) 216.53 lb (98.2 kg) BMI 32.92 Systolic Blood Pressure: 120 mmHg (02/24/24 13:21:00) Diastolic Blood Pressure: 79 mmHg (02/24/24 13:21:00) Temperature Oral: 36.7 degC (02/24/24 13:21:00) Respiratory Rate: 16 br/min (02/24/24 13:21:00) SpO2: 97 % (02/24/24 13:21:00) Oxygen Therapy: Room air (02/24/24 13:21:00) Peripheral Pulse Rate: 74 bpm (02/24/24 13:21:00) Height/Length Measured: 172.72 cm (02/24/24 13:21:00) Height/Length Dosin.72 cm (02/24/24 13:21:00) Weight Measured: 98.2 kg (02/24/24 13:21:00) Weight Dosin.2 kg (02/24/24 13:21:00) BSA Measured: 2.17 (02/24/24 13:21:00) Body Mass Index Measured: 32.92 kg/m2 (02/24/24 13:21:00) Ht/Wt Measurement Refused by Patient?2: No (02/24/24 13:21:00) What to do next Scheduled Follow-Up Appointments No results Medications What How Much When Instructions Unchanged losartan (losartan 25 mg oral tablet) 1/2 tab DAILY Contact prescribing physician if questions or concerns Unchanged vibegron (Gemtesa 75 mg oral tablet) 1 Tabs Oral DAILY Contact prescribing physician if questions or concerns Test Results Estimated Creatinine Clearance - 55.32 mL/min (02/24/2024) Medications Administered Oncology Visit Instructions-Medications : Call your provider right away... If you are recieving cancer treatment and * Have a fever of 100.4 or above or chills * Are experiencing symptoms or side effects related to your treatment that are new or worsening * [facility]: [phone] Common Emergency Awareness Tips IS IT A STROKE? Act FAST and Check for these signs: FACE Does the face look uneven? ARM Does one arm drift down? SPEECH Does their speech sound strange? TIME Call at any sign of stroke Heart Attack Signs Chest discomfort: Most heart attacks involve discomfort in the center of the chest and lasts more than a few minutes, or goes away and comes back. It can feel like uncomfortable pressure, squeezing, fullness or pain. Discomfort in upper body: Symptoms can include pain or discomfort in one or both arms, back, neck, jaw or stomach. Shortness of breath: With or without discomfort. Other signs: Breaking out in a cold sweat, nausea, or lightheaded. Remember, MINUTES DO MATTER. If you experience any of these heart attack warning signs, call to get immediate medical attention! Normal [facility] Oncology Clinic Intake-Texto n 02-24-2024 Oncology Clinic Intake-Text Oncology Clinic Intake Entered On: 02/24/2024 13:21 EDT Performed On: 02/24/2024 13:21 EDT by Rosina Stevens Summary Referral to Cancer Center : Rosalba Kwong CORNCOB PIPE SUPERVISOR Chief Complaint : F/U-secondary polycythemia Primary Support Contact : Serina Daughter [phone] Lida Daughter Accept Blood Products if Necessary : Yes Labs Drawn Option : Peripheral Rosina Stevens - 02/24/2024 13:21 EDT Infection Screening Travel outside [place] within past 21 days : No Positive COVID test in the last 10 days? : No Exposure to and/or close contact with a person who has a laboratory-confirmed COVID test within the last 48 hours. : No Coronavirus New Symptoms w/o Cause : No Rosina Stevens - 02/24/2024 13:23 EDT Vital Signs Temperature Oral : 36.7 degC(Converted to: 98.1 degF) Pulse Rate : 74 bpm Systolic Blood Pressure : 120 mmHg Diastolic Blood Pressure : 79 mmHg Respiratory Rate : 16 br/min SpO2 : 97 % Rosina Stevens - 02/24/2024 13:26 EDT Require BP : Yes Oxygen Therapy : Room air Ht/Wt Measurement Refused by Patient? : No Height/Length Dosing : 172.72 cm(Converted to: 5.67 ft, 68.00 in) Weight Dosing : 98.2 kg(Converted to: 216.494 lb) BSA Dosing : 2.17 Body Mass Index Dosing : 33 Height/Length Measured : 172.72 cm(Converted to: 68.00 in) Weight Measured : 98.2 kg(Converted to: 216.494 lb) BSA Measured : 2.17 Body Mass Index Measured : 32.92 kg/m2 Rosina Stevens 02/24/2024 13:23 EDT Pain/Distress Numeric Pain Scale : 0 Distress Score : 0 Rodney Rosina 02/24/2024 13:23 EDT Depression Screening Is patient currently : None of the Below Alina Stevenseen 02/24/2024 13:23 EDT Advance Directive Advanced Directives : Yes Advance Directive Type : Living will Advance Directive Location : Other: at home Rosina Stevens 02/24/2024 13:23 EDT Falls Risk Assessment Is the patient ambulatory (mobile) : Yes Have you had 2 or more falls in the past year : No Have you had a fall within the past year that has caused an injury : No Rosina Stevens 02/24/2024 13:23 EDT Normal [facility] Phone Msgon 02-24-2024 Phone Msg - From: Rosalba Quintana RN To: [facility] schedulers; Sent: 02/24/2024 15:50:34 EDT Subject: [facility] Scheduling Request - 12 MONTH FUV Due Date/Time: 02/23/2025 15:50:00 EDT Caller Name: MIRNA BERMUDEZ; Caller Number: H Provider to be scheduled: EM Follow up details: 12 MONTHS Clinical Trial Z00.6 CC 30-chelsie if yes IV Access: please chelsie one Peripheral Y Port only Port with treatment Labs needed and ordered- chelsie if yes: Y; AT FOLLOW UP Treatment: Number of cycles Chemo / Immuno/ injections Drug name(s): Frequency: Start or due date: Indicate if new med, new start or restart with yes in this box Special notes: EMR or Paper: Hours total of paper treatment: Unhook: Growth Factor: Oral Medication (Z79.899) Chelsie if yes Diagnostic: Xrays/ Scans: chelsie if ordered Due Date: Special Notes: Return msg to RN: Chelsie if Yes Reel Worker to print future orders sheet for diagnoses and orders Normal [facility] RETICon 02-24-2024 Hematocrit (Bld) [Volume fraction] 46.5 % High 36.0-46.0 [facility] Comment on above: Order Comment: Order ed on Fin# [id number] Performed By: #### 9 919373, 328283, 197025, 311765, 776730, 406529 #### [facility] [address] [place] [address] Field Health Officer: Kb Cuellar MD Immature Retic Fraction 0.39 Normal 0.20-0.50 [facility] Comment on above: Order Comment: Order ed on [facility]# [id number] Performed By: #### 9 084805, 095963, 047072, 906193, 315128, 739731 #### [facility] [address] [place] [address] Field Health Officer: Kb Cuellar MD RBC 5.30 x10 Normal 4.20-5.40 [facility] Comment on above: Order Comment: Order ed on Fin# [id number] Result Comment: Note : RBC morphology is normal unless otherwise stated. Evaluation performed only if differential is requested. Performed By: #### 9 977803, 124103, 935294, 169850, 378722, 448962 #### [facility] [address] [place] [address] Field Health Officer: Kb Cuellar MD Retic Absolute 38 x10 Normal 22-110 [facility] Comment on above: Order Comment: Order ed on [facility]# [id number] Performed By: #### 9 437255, 618637, 713245, 182146, 698209, 971350 #### [facility] [address] [place] [address] Field Health Officer: Kb Cuellar MD Retic Corrected Normal [facility] Comment on above: Order Comment: Order ed on Fin# [id number] Result Comment: Mayco ected Reticulocyte Count Reference Ranges: Hematocrit greater than 35 = NA Hematocrit less than 35 = 2-3% Hematocrit less than 25 = 3-5% Performed By: #### 9 214141, 039656, 349857, 187522, 438002, 616799 #### [facility] [address] [place] [address] Field Health Officer: Kb Cuellar MD Retic Count 0.7 % Normal 0.5-2.5 [facility] Comment on above: Order Comment: Order ed on [facility]# [id number] Performed By: #### 9 912498, 683447, 382009, 258933, 928062, 855407 #### [facility] [address] [place] [address] Field Health Officer: Kb Cuellar MD Cleaner Signs Office Visit Reporton 11-29-2023 Cleaner Signs Office Visit Report [facility] [address] [place] [address] OFFICE VISIT Date of Service: 11/29/23 MR#: [id number] Acct: [id number] Name: MIRNA BERMUDEZ Rep #: [id number] : 1950 Provider: CINDI covarrubias Age/Sex: 73/F Location: [facility] [place] Status: Signed Intake Vital Signs 10/19/23 14:35 11/29/23 09:48 11/29/23 09:54 Height 5 ft 7 in 5 ft 7 in 5 ft 7 in Weight: 216 lb 4 oz BMI 33.8 BP 134/82 H Intake Visit Reasons: 4 MONTH MED CK Chief Complaint: 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 Is patient in pain?: No Allergies oxycodone (From Percocet) Adverse Reaction (Verified 11/29/23 09:45) Nightmares Medications ???Medication ???Instructions ???Recorded ???Confirmed ???Type Barley Belterra Juice Powder 1 pkg PO/SL DAILY 09/08/22 11/29/23 History DIM SUPPLEMENT 241 mg PO/SL DAILY 09/08/22 11/29/23 History Electrolyte Powder 1 pkg PO/SL DAILY 09/08/22 11/29/23 History Gallbladder Formul 2 cap PO/SL DAILY 09/08/22 11/29/23 History No Flush Niacin 500 mg PO/SL DAILY 09/08/22 11/29/23 History Raw Calcium 3 tab PO/SL DAILY 09/08/22 11/29/23 History Trace Minerals 1 cap PO/SL DAILY 09/08/22 11/29/23 History Tudh 500 mg PO/SL DAILY 09/08/22 11/29/23 History ascorbic acid (vitamin C) 1,000 mg 1 cap PO DAILY 09/08/22 11/29/23 History capsule,extended release ashwagandha root extract 300 mg 800 mg PO DAILY 09/08/22 11/29/23 History capsule betaine HCl 300 mg tablet 648 mg PO DAILY 09/08/22 11/29/23 History biotin 5 mg capsule 5 mg PO DAILY 09/08/22 11/29/23 History cholecalciferol (vitamin D3) 50 100 mcg PO DAILY 09/08/22 11/29/23 History mcg (2,000 unit) tablet (Vitamin D3) multivit,Ca,pka-nmkp-KL- guarana-caff 2 tab PO DAILY 09/08/22 11/29/23 History 18 mg iron-400 mcg-180 mg tablet potassium 99 mg tablet 198 mg PO DAILY 09/08/22 11/29/23 History thiamine HCl (vitamin B1) 500 mg 500 mg PO DAILY 09/08/22 11/29/23 History tablet vitamin B12 1,000 mcg-folic acid 1 tab sublingual DAILY 09/08/22 11/29/23 History 400 mcg sublingual tablet estradiol 0.01% (0.1 mg/gram) See Rx Instructions vaginal 10/19/23 11/29/23 Rx vaginal cream .COMPLEX #42.5 grams losartan 25 mg tablet 12.5 mg PO DAILY 10/19/23 11/29/23 History Is last menstrual period known: No Post menopausal: Yes Patient : No : No PFSH Medical History Post-menopausal Alcohol use Easy bruising Restless legs Gastric reflux CPAP (continuous positive airway pressure) dependence Non-smoker History of stress test Hypertension Hx of fracture of wrist Surgical History Hx of right cataract extraction Hx of left cataract extraction Hx of colonoscopy Hx of foot surgery Hx of tubal ligation Family History Brother Heart disease Hypertension High cholesterol Mother Heart disease High cholesterol Hypertension Social History current occupational status: retired Smoking Status: Never smoker alcohol intake: current details: one drink per week substance use type: does not use seatbelt use: always do you feel safe at home: Yes additional social history: HPI 4 MONTH MED CK Details: MIRNA BERMUDEZ is a 73 year old who presents for follow up start of estradiol cream. She is using every 3rd night. It was prescribed for every other day. She states she still has dryness. She refuses pelvic exam. She is seeing a naturopathic provider the is giving her a parasite cleanse she takes daily and has resolved the vaginal odor. History 3 Elective abortions Hx Para 3 Spontaneous abortions Hx # Term Pregnancies Ectopic pregnancies Hx # Pregnancies Multiple births # of living children 3 Past Pregnancies Del. Date Name GA/Weeks Outcome Route Bth Weight Infant Gen Labor Lgth Anesthesia Del Locatn Provider FOB Unknown Lisandra 1977 Unknown Juaquin 1981 Unknown Serina 1984 ROS Const Constitutional: Reports system reviewed and no additional complaints, except as documented Eyes Eyes: Reports system reviewed and no additional complaints, except as documented GI GI: Denies abdominal pain or change in bowel habits : Reports as per HPI Exam Const General: cooperative and no acute distress Orientation: oriented x3 HENMT Head: normal to inspection and normocephalic Eyes General: appearance normal, both eyes and all related structures Neck Neck: normal visual inspection Resp Effort Inspection: normal respiratory effort Neuro Cognition: normal cognition S (more content not included)... Normal [facility] PAP IG HPV APTIMA 16/18,45on 10-24-2023 ADEQ Comment Normal . [facility] Comment on above: Order Comment: Speci men Comment: [id number] Specimen Comment: Source.............Cervix Specimen Comment: Other..............Post Menopausal Specimen Comment: No. of containers..01 ThinPrep Vial Result Comment: Sati sfactory for evaluation. Endocervical and/or squamous metaplastic cells (endocervical component) are present. Performed By: #### L 7000.1800, M100.2000, M100.3200, L7400.0280 #### [facility] [address] [place], [place], [address] COMM . Normal . [facility] Comment on above: Order Comment: Speci men Comment: [id number] Specimen Comment: Source.............Cervix Specimen Comment: Other..............Post Menopausal Specimen Comment: No. of containers..01 ThinPrep Vial Performed By: #### L 7000.1800, M100.1999, M100.3200, L7400.0280 #### [facility] [address] [place], [place], [id number] COMMENT Comment Normal . [facility] Comment on above: Order Comment: Speci men Comment: [id number] Specimen Comment: Source.............Cervix Specimen Comment: Other..............Post Menopausal Specimen Comment: No. of containers..01 ThinPrep Vial Result Comment: This liquid based ThinPrep(R) pap test was screened with the use of an image guided system. Performed By: #### L 7000.1800, M100.1999, M100.3200, L7400.0280 #### [facility] [address] [place], [place], [id number] DIAG Comment Normal . [facility] Comment on above: Order Comment: Speci men Comment: [id number] Specimen Comment: Source.............Cervix Specimen Comment: Other..............Post Menopausal Specimen Comment: No. of containers..01 ThinPrep Vial Result Comment: NEGA TIVE FOR INTRAEPITHELIAL LESION OR MALIGNANCY. CELLULAR CHANGES ASSOCIATED WITH ATROPHY ARE PRESENT. Performed By: #### L 7000.1800, M100.2000, M100.3200, L7400.0280 #### [facility] [address] [place], [address] HPV APTIMA, HR Negative Normal Negative [facility] Comment on above: Order Comment: Speci men Comment: [id number] Specimen Comment: Source.............Cervix Specimen Comment: Other..............Post Menopausal Specimen Comment: No. of containers..01 ThinPrep Vial Result Comment: This nucleic acid amplification test detects fourteen high- risk HPV types (16,18,31,33,35,39,45,51,52,56,58,59,66,68) without differentiation. Performed By: #### L 7000.1800, M100.2000, M100.3200, L7400.0280 #### [facility] [address] [place], [address] HPV Aida Rfx Comment Normal . [facility] Comment on above: Order Comment: Speci men Comment: [id number] Specimen Comment: Source.............Cervix Specimen Comment: Other..............Post Menopausal Specimen Comment: No. of containers..01 ThinPrep Vial Result Comment: Crit brittany not met, HPV Genotype not performed. Performed at: [address] [id number] Manager Net: Katelynn Arndt MD, Phone: [phone] Performed at: =[address] [id number] Manager Net: Katelynn Arndt MD, Phone: [phone] Performed By: #### L 7000.1800, M100.2000, M100.3200, L7400.0280 #### [facility] [address] [place], [place], [id number] PAPSMR Comment Normal . [facility] Comment on above: Order Comment: Speci men Comment: [id number] Specimen Comment: Source.............Cervix Specimen Comment: Other..............Post Menopausal Specimen Comment: No. of containers..01 ThinPrep Vial Result Comment: The Pap smear is a screening test designed to aid in the detection of premalignant and malignant conditions of the uterine cervix. It is not a diagnostic procedure and should not be used as the sole means of detecting cervical cancer. Both false-positive and false-negative reports do occur. Performed By: #### L 0.1800, 00.1999, M100.3200, L7400.0280 #### [facility] [address] [place], [place], [id number] PERFORM Comment Normal . [facility] Comment on above: Order Comment: Speci men Comment: [id number] Specimen Comment: Source.............Cervix Specimen Comment: Other..............Post Menopausal Specimen Comment: No. of containers..01 ThinPrep Vial Result Comment: Vivek Krause, Retail Pharmacy Manager (ASCP) Performed By: #### L 0.1800, M100.2000, M100.3200, L7400.0280 #### [facility] [address] [place], [place], [id number] Genital Culture Comprehensiv moe 10-22-2023 VAC Reason for Exam: vag inal burning vaginal burning Normal vaginal veronica isolated. No yeast, Gardnerella, Neisseria or beta-hemolytic Streptococcus isolated. Normal [facility] Comment on above: Performed By: #### L 7000.1800, M100.2000, M100.3200, L7400.0280 #### [facility] [address] [place], [address] Chlamydia/GC BLADE aptimaon CHLAMY,NUC ACID Negative Normal Negative [facility] Comment on above: Performed By: #### L 7000.1800, M100.2000, M100.3200, L7400.0280 #### [facility] [address] [place], [address] GC BY NUC ACID Negative Normal Negative [facility] Comment on above: Result Comment: Perf ormed at: =G - [facility] [address] [id number] Manager Net: Katelynn Arndt MD, Phone: [phone] Performed By: #### L 7000.1800, M100.2000, M100.3200, L7400.0280 #### [facility] [address] [place], [address] HSV 1 AND 2 IgGon 10-21-2023 HSV 1 IgG < 0.91 Normal 0.00-0.90 [facility] Comment on above: Result Comment: Nega tive <0.91 Equivocal 0.91 - 1.09 Positive >1.09 Note: Negative indicates no antibodies detected to HSV-1. Equivocal may suggest early infection. If clinically appropriate, retest at later date. Positive indicates antibodies detected to HSV-1. Performed By: #### L 509.8000, L3400.1610, L3890.6300, L3890.6100, L500.4050 ####[facility] [address] [place], [address] HSV 2 IgG < 0.91 Normal 0.00-0.90 [facility] Comment on above: Result Comment: Nega tive <0.91 Equivocal 0.91 - 1.09 Positive >1.09 HSV-2 Antibody Interpretation: Current guidelines and recommendations do not recommend routine screening for HSV-2 in asymptomatic individuals, including those that are . A negative antibody result indicates no detectable antibodies to HSV-2 were found. If recent exposure is suspected, retest in 4 to 6 weeks. Equivocal samples should be retested in 4 to 6 weeks. A positive result indicates the presence of detectable IgG antibody to HSV-2. FALSE POSITIVE RESULTS MAY OCCUR. Repeat testing, or testing by a different method, may be indicated in some settings (e.g. patients with low likelihood of HSV infection). If clinically appropriate, retest 4 to 6 weeks later. HSV-2 IgG antibody testing results should be clinically correlated. Performed at: [facility] [address] [id number] Manager Net: Slim Wilkins PhD, Phone: [phone] Performed By: #### L 509.8000, L3400.1610, L3890.6300, L3890.6100, L500.4050 ####[facility] [address] [place], [place], [id number] Gram Stainon 10-20-2023 GS Reason for Exam: vag inal burning vaginal burning Gram Stain Rare Yeast Like Organisms 2+ White Blood Cells 3+ Gram positive rods No Gram negative diplococci Normal [facility] Comment on above: Performed By: #### L 7000.1800, M100.2000, M100.3200, L7400.0280 #### [facility] [address] [place], [address] Basophil percentageOrdered B y: Aleyda Chong on 10-19-2023 Bilirubin [Mass/Vol] 0.50 mg/dL 0.20-1.00 [facility] Comment on above: For patients on eltr ombopag therapy, use of Dimension [employer] TBIL is not recommended. Chloride [Moles/Vol] 109 mmol/L 98-107 [facility] Glucose [Mass/Vol] 96 mg/dL 74-106 [facility] Potassium [Moles/Vol] 4.0 mmol/L 3.5-5.1 [facility] Protein [Mass/Vol] 7.7 g/dL 6.4-8.2 [facility] Sodium [Moles/Vol] 140 mmol/L 136-145 [facility] Cervical or vaginal specimen microscopic examination by liquid based cytology (reportOrdered By: Aleyda Chong on 10-19-2023 Cytology report Cyto stain.thin prep Doc (Cvx/Vag) Comment . [facility] Comment on above: Criteria not met, HP V Genotype not performed.Performed at: - [facility] [id number] Director: Katelynn Arndt MD, Phone: [phone] at: =G - [facility] [address] [id number] Director: Katelynn Arndt MD, Phone: [phone] Cervical or vagninal specime n microscopic examination by cytology stain (reported asOrdered By: Aleyda Chong on 10-19-2023 Cytology report Cyto stain Doc (Cvx/Vag) Comment . [facility] Comment on above: The Pap smear is a s creening test designed to aid in thedetection of premalignant and malignant conditions of theuterine cervix. It is not a diagnostic procedure andshould not be used as the sole means of detecting cervicalcancer. Both false-positive and false-negative reports dooccur. Chlamydia trachomatis rRNA d etection by probe and target amplification methodOrdered By: Aleyda Chong on 10-19-2023 C. trachomatis rRNA BLADE+probe Ql (Unsp spec) Negative Negative [facility] Comprehensive Metabolic Prof ilon 10-19-2023 Albumin [Mass/Vol] 3.9 g/dL Normal 3.2-5.0 [facility] Comment on above: Performed By: #### L 509.8000, L3400.1610, L3890.6300, L3890.6100, L500.4050 ####[facility] [address] [place], [place], [id number] Albumin/Globulin [Mass ratio] 1.0 {ratio} Normal 0.9-2.4 [facility] Comment on above: Performed By: #### L 509.8000, L3400.1610, L3890.6300, L3890.6100, L500.4050 ####[facility] [address] [place], [address] ALK P 97 U/L Normal 45-117 [facility] Comment on above: Performed By: #### L 509.8000, L3400.1610, L3890.6300, L3890.6100, L500.4050 ####[facility] [address] [place], [address] ALT [Catalytic activity/Vol] 52 U/L Normal 13-56 [facility] Comment on above: Performed By: #### L 509.8000, L3400.1610, L3890.6300, L3890.6100, L500.4050 ####[facility] [address] [place], [address] AST [Catalytic activity/Vol] 28 U/L Normal 15-37 [facility] Comment on above: Performed By: #### L 509.8000, L3400.1610, L3890.6300, L3890.6100, L500.4050 ####[facility] [address] [place], [address] Bilirubin [Mass/Vol] 0.50 mg/dL Normal 0.20-1.00 [facility] Comment on above: Result Comment: For patients on eltrombopag therapy, use of Dimension [employer] TBIL is not recommended. Performed By: #### L 509.8000, L3400.1610, L3890.6300, L3890.6100, L500.4050 ####[facility] [address] [place], [address] BUN/CRE 23.4 RATIO High 10-20 [facility] Comment on above: Performed By: #### L 509.8000, L3400.1610, L3890.6300, L3890.6100, L500.4050 ####[facility] [address] [place], [address] CA,Total 9.7 mg/dL Normal 8.5-10.1 [facility] Comment on above: Performed By: #### L 509.8000, L3400.1610, L3890.6300, L3890.6100, L500.4050 ####[facility] [address] [place], [address] Chloride [Moles/Vol] 109 mmol/L High 98-107 [facility] Comment on above: Performed By: #### L 509.8000, L3400.1610, L3890.6300, L3890.6100, L500.4050 ####[facility] [address] [place], [address] CO2 [Moles/Vol] 27.0 mmol/L Normal 21.0-32.0 [facility] Comment on above: Performed By: #### L 509.8000, L3400.1610, L3890.6300, L3890.6100, L500.4050 ####[facility] [address] [place], [address] Creatinine [Mass/Vol] 1.11 mg/dL High 0.55-1.02 [facility] Comment on above: Result Comment: The validity of the calculated GFR GFRAA in patients over 70 years has not been determined. Clinical correlation is essential. Performed By: #### L 509.8000, L3400.1610, L3890.6300, L3890.6100, L500.4050 ####[facility] [address] [place], [address] EST GFR - AA 62 mL/min Normal >60 [facility] Comment on above: Result Comment: Afri can Guinean GFR Calc Performed By: #### L 509.8000, L3400.1610, L3890.6300, L3890.6100, L500.4050 ####[facility] [address] [place], [address] GAP 4 Low 5-15 [facility] Comment on above: Performed By: #### L 509.8000, L3400.1610, L3890.6300, L3890.6100, L500.4050 ####[facility] [address] [place], [address] GFR/1.73 sq M.predicted among non-blacks MDRD (S/P/Bld) [Vol rate/Area] 51 mL/min/{1.73_m2} Low >60 [facility] Comment on above: Result Comment: Non- GFR Calc Performed By: #### L 509.8000, L3400.1610, L3890.6300, L3890.6100, L500.4050 ####[facility] [address] [place], [address] Globulin (S) [Mass/Vol] 3.8 g/dL Normal 2.2-4.2 [facility] Comment on above: Performed By: #### L 509.8000, L3400.1610, L3890.6300, L3890.6100, L500.4050 ####[facility] [address] [place], [address] Glucose [Mass/Vol] 96 mg/dL Normal 74-106 [facility] Comment on above: Performed By: #### L 509.8000, L3400.1610, L3890.6300, L3890.6100, L500.4050 ####[facility] [address] [place], [address] Potassium [Moles/Vol] 4.0 mmol/L Normal 3.5-5.1 [facility] Comment on above: Performed By: #### L 509.8000, L3400.1610, L3890.6300, L3890.6100, L500.4050 ####[facility] [address] [place], [address] Sodium [Moles/Vol] 140 mmol/L Normal 136-145 [facility] Comment on above: Performed By: #### L 509.8000, L3400.1610, L3890.6300, L3890.6100, L500.4050 ####[facility] [address] [place], [address] T PROT 7.7 g/dL Normal 6.4-8.2 [facility] Comment on above: Performed By: #### L 509.8000, L3400.1610, L3890.6300, L3890.6100, L500.4050 ####[facility] [address] [place], [address] Urea nitrogen [Mass/Vol] 26 mg/dL High 7-18 [facility] Comment on above: Performed By: #### L 509.8000, L3400.1610, L3890.6300, L3890.6100, L500.4050 ####[facility] [address] [place], [address] Detection in cervical specim en of any of human papilloma virus (HPV) 16, 18, 31, 33,Ordered By: Aleyda Chong on 10-19-2023 HPV 16+18+31+33+35+39+45+5 1+52+56+58+59+66+68 DNA Probe+sig amp Ql (Cvx) Negative Negative [facility] Comment on above: This nucleic acid am plification test detects fourteen high- risk HPV types (16,18,31,33,35,39,45,51,52,56,58,59,66,68)without differentiation. Gram stain for investigation of transfusion reactionOrdered By: Aleyda Chong on 10-19-2023 Microscopic observation Gram stain Nom (Unsp spec) [facility] Hepatitis B Surface Antigeno n 10-19-2023 HEP B Surf Ag Non-Reactive Normal Nonreactive [facility] Comment on above: Order Comment: Reaso n for Exam: STD exposureReason for Exam: std exposure Performed By: #### L 509.8000, L3400.1610, L3890.6300, L3890.6100, L500.4050 ####[facility] [address] [place], [place], [address] Hepatitis C Antibodyon 10-18 Hepatitis C AB Non-Reactive Normal Nonreactive [facility] Comment on above: Order Comment: Reaso n for Exam: STD exposureReason for Exam: std exposure Result Comment: Non Reactive: < 0.8 Equivocal: >/= 0.8 to < 1.0 Reactive: >/= 1.0 The [facility] requires that a reactive/equivocal HCV antibody result be sent out for confirmation. HCV Quant by PCR testing. Performed By: #### L 509.8000, L3400.1610, L3890.6300, L3890.6100, L500.4050 ####[facility] [address] [place], [place], [id number] L509.8000on 10-19-2023 Syphilis Abs Non-Reactive Normal [facility] Comment on above: Order Comment: Reaso n for Exam: STD exposureReason for Exam: std exposure Performed By: #### L 509.8000, L3400.1610, L3890.6300, L3890.6100, L500.4050 ####[facility] [address] [place], [place], [id number] Laboratory - Chemistry and C hemistry - challengeOrdered By: Aleyda Chong on 10-19-2023 Albumin/Globulin [Mass ratio] 1.0 {ratio} 0.9-2.4 [facility] ALP [Catalytic activity/Vol] 97 U/L 45-117 [facility] ALT [Catalytic activity/Vol] 52 U/L 13-56 [facility] CO2 [Moles/Vol] 27.0 mmol/L 21.0-32.0 [facility] Globulin (S) [Mass/Vol] 3.8 g/dL 2.2-4.2 [facility] Urea nitrogen/Creatinine [Mass ratio] 23.4 mg/mg 10-20 [facility] Laboratory - CytologyOrdered By: Aleyda Chong on 10-19-2023 Merchandise Support Associate Cyto stain Nom (Cvx/Vag) [ID] Comment . [facility] Comment on above: Juvenal Leavitt totechnologist (ASCP) Laboratory - Microbiology an d Antimicrobial susceptibilityOrdered By: Aleyda Chong on 10-19-2023 N. gonorrhoeae DNA BLADE+probe Ql (Unsp spec) Negative Negative [facility] Comment on above: Performed at: =[address] [id number] Director: Katelynn Arndt MD, Phone: [phone] Laboratory - Miscellaneous t estsOrdered By: Aleyda Chong on 10-19-2023 Service comment (Unsp spec) [Interp] . . [facility] No Panel InformationOrdered By: Aleyda Chong on 10-19-2023 Genital Culture [facility] Estimated GFR (MDRD) Amer 62 mL/min >60 [facility] Comment on above: GFR Calc Estimated GFR (MDRD) Non-Af Amer 51 mL/min >60 [facility] Comment on above: Non- GFR Calc Hepatitis B Surface Antigen Non-Reactive Nonreactive [facility] Hepatitis C Antibody Non-Reactive Nonreactive [facility] Comment on above: Non Reactive: < 0.8 Equivocal: >/= 0.8 to < 1.0 Reactive: >/= 1.0The CDC requires that a reactive/equivocal HCV antibody result be sent out for confirmation. HCV Quant by PCR testing. Herpes Simplex Virus I IgG Antibody < 0.91 index 0.00-0.90 [facility] Comment on above: Negative <0.91 Equiv ocal 0.91 - 1.09 Positive >1.09 Note: Negative indicates no antibodies detected to HSV-1. Equivocal may suggest early infection. If clinically appropriate, retest at later date. Positive indicates antibodies detected to HSV-1. No Panel Informationon 10-18 POC Bacterial Vaginitis (Rapid) Negative [facility] POC Trichomonas (Rapid) Negative [facility] Cleaner Signs Office Visit Reporton 10-19-2023 Cleaner Signs Office Visit Report [facility] [address] [place] [address] OFFICE VISIT Date of Service: 10/19/23 MR#: [id number] Acct: [id number] Name: MIRNA BERMUDEZ Rep #: [id number] : 1950 Provider: CINDI covarrubias Age/Sex: 72/F [place] [facility] Status: Signed Intake Vital Signs 09/14/22 07:21 10/19/23 14:27 10/19/23 14:35 Height 5 ft 7 in 5 ft 7 in 5 ft 7 in Weight: 215 lb 6 oz BMI 33.7 BP 124/72 H Intake Visit Reasons: VAGINAL ODOR REF FROM [facility] Chief Complaint: Vaginal 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 Is patient in pain?: No Allergies oxycodone [From Percocet] Adverse Reaction (Verified 09/28/22 12:55) Nightmares Medications Barley Belterra Juice Powder 1 pkg PO/SL DAILY 09/08/22 [History Confirmed 09/28/22] DIM SUPPLEMENT 241 mg PO/SL DAILY 09/08/22 [History Confirmed 09/28/22] Electrolyte Powder 1 pkg PO/SL DAILY 09/08/22 [History Confirmed 09/28/22] Gallbladder Formul 2 cap PO/SL DAILY 09/08/22 [History Confirmed 09/28/22] No Flush Niacin 500 mg PO/SL DAILY 09/08/22 [History Confirmed 09/28/22] Raw Calcium 3 tab PO/SL DAILY 09/08/22 [History Confirmed 09/28/22] Trace Minerals 1 cap PO/SL DAILY 09/08/22 [History Confirmed 09/28/22] Tudh 500 mg PO/SL DAILY 09/08/22 [History Confirmed 09/28/22] ascorbic acid (vitamin C) 1,000 mg capsule,extended release 1 cap PO DAILY 09/08/22 [History Confirmed 09/28/22] ashwagandha root extract 300 mg capsule 800 mg PO DAILY 09/08/22 [History Confirmed 09/28/22] betaine HCl 300 mg tablet 648 mg PO DAILY 09/08/22 [History Confirmed 09/28/22] biotin 5 mg capsule 5 mg PO DAILY 09/08/22 [History Confirmed 09/28/22] cholecalciferol (vitamin D3) 50 mcg (2,000 unit) tablet (Vitamin D3) 100 mcg PO DAILY 09/08/22 [History Confirmed 09/28/22] multivit,Ca,qbs-yosp-FK- guarana-caff 18 mg iron-400 mcg-180 mg tablet 2 tab PO DAILY 09/08/22 [History Confirmed 09/28/22] potassium 99 mg tablet 198 mg PO DAILY 09/08/22 [History Confirmed 09/28/22] thiamine HCl (vitamin B1) 500 mg tablet 500 mg PO DAILY 09/08/22 [History Confirmed 09/28/22] vitamin B12 1,000 mcg-folic acid 400 mcg sublingual tablet 1 tab sublingual DAILY 09/08/22 [History Confirmed 09/28/22] estradiol 0.01% (0.1 mg/gram) vaginal cream See Rx Instructions vaginal .COMPLEX #42.5 grams 10/19/23 [Rx Confirmed 10/19/23] losartan 25 mg tablet 12.5 mg PO DAILY 10/19/23 [History Confirmed 10/19/23] Is last menstrual period known: No Post menopausal: Yes Patient : No : No PFSH Medical History Alcohol use CPAP (continuous positive airway pressure) dependence Easy bruising Gastric reflux History of stress test Hx of fracture of wrist Hypertension Non-smoker Post-menopausal Restless legs Surgical History Hx of colonoscopy Hx of foot surgery Hx of left cataract extraction Hx of right cataract extraction Hx of tubal ligation Family History Brother Heart disease Hypertension High cholesterol Mother Heart disease High cholesterol Hypertension Social History (Updated 10/19/23 @ 14:34 by Melissa Bagley) current occupational status: retired Smoking Status: Never smoker alcohol intake: current details: one drink per week substance use type: does not use seatbelt use: always do you feel safe at home: Yes additional social history: HPI VAGINAL ODOR REF FROM [facility] Details: MIRNA BERMUDEZ is a 72 year old who presents for new patient with multiple concerns. 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 She did have a new partner that had had other partners. She did not have any STD testing done since then. She did not return for repeat pap. She complains of vaginal odor and external itching. She also has been told she has elevated LFT and never followed up on that either. Last mammogram was 2 years ago. She also has urine loss daily and wants to see urologist. History 3 Elective abortions Hx Para 3 Spontaneous abortions Hx # Term Pregnancies Ectopic pregnancies Hx # Pregnancies Multiple births # of living children 3 Past Pregnancies Del. Date Name GA/Weeks Outcome Route Bth Weight Infant Gen Labor Lgth Anesthesia Del Locatn Provider FOB Unknown Lisandra 1977 Unknown Juaquin 1981 Unknown Serina 1984 ROS Const Constitutional: Reports system reviewed and no additional complaints, except as documented Eyes Eyes: Reports system reviewed and no additional complaints, except as documented GI GI: Denies abdominal pain or change in bowel habits : Reports as per HPI Exam Const General: cooperative and no acute distress Orientation: oriented (more content not included)... Normal [facility] Serum Treponema species anti body detectionOrdered By: Aleyda Chong on 10-19-2023 Treponema sp Ab Ql (S) Non-Reactive [facility] Serum herpes simplex virus 2 antibody assay by immunoassay (units/volume)Ordered By: Aleyda Chong on 10-19-2023 HSV 2 Ab IA Qn (S) < 0.91 index 0.00-0.90 [facility] Comment on above: Negative <0.91 Equiv ocal 0.91 - 1.09 Positive >1.09 HSV-2 Antibody Interpretation: Current guidelines and recommendations do not recommend routine screening for HSV-2 in asymptomatic individuals, including those that are . A negative antibody result indicates no detectable antibodies to HSV-2 were found. If recent exposure is suspected, retest in 4 to 6 weeks. Equivocal samples should be retested in 4 to 6 weeks. A positive result indicates the presence of detectable IgG antibody to HSV-2. FALSE POSITIVE RESULTS MAY OCCUR. Repeat testing, or testing by a different method, may be indicated in some settings (e.g. patients with low likelihood of HSV infection). If clinically appropriate, retest 4 to 6 weeks later. HSV-2 IgG antibody testing results should be clinically correlated.Performed at: [address] [id number] Director: Slim Wilkins PhD, Phone: [phone] Serum or plasma calcium manisha urement (mass/volume)Ordered By: Aleyda Chong on 10-19-2023 Calcium [Mass/Vol] 9.7 mg/dL 8.5-10.1 [facility] Serum or plasma creatinine m easurement (mass/volume)Ordered By: Aleyda Chong on 10-19-2023 Creatinine [Mass/Vol] 1.11 mg/dL 0.55-1.02 [facility] Comment on above: The validity of the calculated GFR & GFRAA in patients over 70 years has not been determined. Clinical correlation is essential. Serum or plasma urea nitroge n measurement (mass/volume)Ordered By: Aleyda Chong on 10-19-2023 Urea nitrogen [Mass/Vol] 26 mg/dL 7-18 [facility] Thin prep Papanicolaou smear with manual screeningOrdered By: Aleyda [place] on 10-19-2023 Thin prep Papanicolaou smear with manual screening Comment . [facility] Comment on above: NEGATIVE FOR INTRAEP ITHELIAL LESION OR MALIGNANCY.CELLULAR CHANGES ASSOCIATED WITH ATROPHY ARE PRESENT. This liquid based Th inPrep(R) pap test was screened withthe use of an image guided system. Thin prep Papanicolaou smear with manual screening 3.9 g/dL 3.2-5.0 [facility] Thin prep Papanicolaou smear with manual screening 28 U/L 15-37 [facility] Thin prep Papanicolaou smear with manual screening 4 5-15 [facility] MedOnc-OP Progress Notes-Benny jung 08-15-2023 MedOnc-OP Progress Notes-MIRNA Schultz :1950 Registration Date:06/03/2023 Chief Complaint/Reason for Visit 6 month follow up with labs Treatment History September 25, 2021: Initial heme/onc consult for erythrocytosis. H/H of 15.7/48.7, no other cytopenias, importantly the differential had been normal to date. The patient had labs from 2019 that were similar. She has never smoked. She reported having sleep apnea, wears CPAP 4/7 nights per week. She recently had an area of melanoma removed from her right burr last month, was able to be fully resected, denies any other cancer history. She does report that for 20+ years she has had burning/itching in the mouth and vaginal area which she has seen many specialists for, unknown etiology, denies any other itching. Denies dehydration. She has no history of thromboembolic events including blood clots, stroke or heart attacks. She was up to date on her cancer surveillance screenings, including mammogram and colonoscopy. Liver enzymes are mildly elevated, which per EMR were also elevated in 2017. Denies any known history of liver disease. Recent CT showed no abnormal findings of the liver or spleen MPN panel negative for JOSE [id number], MPL, CALR and FISH BCR-ABL. EPO level was 6, ferritin 90, iron saturation 32%. Recommended compliance with CPAP and donating to the [facility] 1-2 times per year. Current Treatment Plan - Donate to [facility] 1-3 times per year - CBCD Q3 months - baby aspirin 81 mg daily. History of Present Illness Mirna is a 72-year-old female who is familiar with our clinic. We initially saw her in September 2021 for erythrocytosis. MPN panel, including JAK2 V617F, BCR able CALR and MPL mutations were all negative. She does have sleep apnea, but reports being pretty compliant with her CPAP and wears it 4 -5 out of 7 nights. Saw rheumatology for her burning/tingling sensation in the feet, hands, mouth and vaginal area that has been happening consistently for 20+years, PADDY that was positive with low titer. She also saw Infectious Disease for this, who found negative stool studies, however the patient believes she may have a parasite, so has been taking Ivermectin 2x/day for the past three months (with pauses every fourth week). Is seeing Dr. Mitchell again soon. EGD in February 2022 with gastritis and irregular z-line. She otherwise feels about the same. Tried to donate to the [facility] 3 weeks ago, but vein collapsed and blood draw couldn't be completed. Will try again in a few weeks. She denies fatigue, night sweats, decreased appetite, abdominal fullness/bloating or new focal pain. No headaches, vision changes, or flushing. Labs today 06/03: HCT 46.7, Hgb 15.4. Review of Systems General: No fever, chills, weakness, weight loss, or night sweats. HEENT: No headache, dizziness, syncope, vision changes, or hearing loss. Respiratory: No cough, SOB, sputum production or hemoptysis. Cardiovascular: No palpitations, edema, dyspnea on exertion or chest pain. Abdomen: No nausea, vomiting, diarrhea, constipation or abdominal pain. Genitourinary: No urgency, frequency, or discharge. Musculoskeletal: No joint pain, swelling, or decreased ROM. Hematology/Lymph: No bruises, petechia or ecchymosis. No lymphadenopathy. Physical Exam General: Alert and oriented x3. Appropriate mood and behavior. No current pain. HEENT: Neck supple. Sclera clear. Lungs: Normal breath sounds with good chest expansion, thorax symmetric. Cardiovascular: Regular rate and rhythm, no murmurs, normal S1 and S2. Extremities: No edema. Hematology/Lymphatics: No abnormal bleeding, bruising, or petechiae. No palpable cervical, axillary lymphadenopathy. Skin: Warm, dry, intact. No lesions or rashes. No jaundice. No petechiae. Vitals & Measurements Peripheral Pulse Rate: 68 bpm (06/03/23 14:05:00) Respiratory Rate: 16 br/min (06/03/23 14:05:00) Systolic Blood Pressure: 153 mmHg High (06/03/23 14:05:00) Diastolic Blood Pressure: 77 mmHg (06/03/23 14:05:00) Height/Length Measured: 172.72 cm (06/03/23 14:05:00) Weight Measured: 94.5 kg (06/03/23 14:05:00) Body Mass Index Measured: 31.68 kg/m2 (06/03/23 14:05:00) Screening & Performance Depression Screening Scores Initial Depression Screen Score: 0 (06/03/23 14:05:00) Psychosocial Distress Management No Psychosocial Distress Management data available for this encounter. Fall Risk Assessment Is the patient ambulatory (mobile): Yes (06/03/23 14:05:00) Have you had a fall within the past: No (06/03/23 14:05:00) Have you had 2 or more falls in the past: No (06/03/23 14:05:00) ECOG Description 0 Care Team Attending Physician - EM LEIVA CNP Primary Care Physician - MARYBETH CHOE, LULÚ Lab Results Last Month Chemistry BUN 29 mg/dL 06/03/23 Na 142 mmol/L 06/03/23 K 4.4 mmol/L 06/03/23 Chloride 108 mmol/L 06/03/23 CO2, venous 24.0 mmol/L 06/03/23 Creatinine 0.9 mg/dL (more content not included)... Normal [facility] Phone Msgon 06-23-2023 Phone Msg - From: Johanny PADRON, Marielos To: [facility] schedulers; Sent: 06/03/2023 14:56:12 EST Subject: [facility] Scheduling Request-F/u in 9 months with labs Due Date/Time: 12/03/2023 15:56:00 EDT Caller Name: MIRNA BERMUDEZ; Caller Number: H Provider to be scheduled: Em REDDING Follow up details: 9 months Clinical Trial Z00.6 CC 30-chelsie if yes IV Access: please chelsie one Peripheral x Port only Port with treatment Labs needed and ordered- chelsie if yes: @ f/u Q 12 weeks- outpatient, pt given orders Treatment: Number of cycles Chemo / Immuno/ injections Drug name(s): Frequency: Start or due date: Indicate if new med, new start or restart with yes in this box Special notes: EMR or Paper: Hours total of paper treatment: Unhook: Growth Factor: Oral Medication (Z79.899) Chelsie if yes Diagnostic: Xrays/ Scans: chelsie if ordered Due Date: Special Notes: Return msg to RN: Chelsie if Yes Reel Worker to print future orders sheet for diagnoses and orders Pt prefers visits after 10 am. Thank you!! Scheduled and mailed Normal [facility] AUTO DIFFon 06-03-2023 Baso Count 0.08 x1000 Normal 0.00-0.20 [facility] Comment on above: Performed By: #### 1 [id number] ####[facility] [id number] [place] [address] Medical Director: Kb Cuellar MD Basos % 0.9 % Normal [facility] Comment on above: Performed By: #### 1 [id number], [id number], [id number], [id number] ####[facility] [address]hmcseo19502 [place] [address] Medical Director: Kb Cuellar MD Eos Count 0.10 x1000 Normal 0.00-0.50 [facility] Comment on above: Performed By: #### 1 56360, 225968, 2838120, 063603, 511408 ####[facility] [address] [place] [address] Medical Director: Kb Cuellar MD Eosinophils/100 WBC (Bld) 1.3 % Normal [facility] Comment on above: Performed By: #### 1 67265, 352521, 7642739, 555637, 691174 ####[facility] [address]qdzf[address] [place] [address] Medical Director: Kb Cuellar MD Lymph Count 2.94 x1000 Normal 1.20-4.80 [facility] Comment on above: Performed By: #### 1 94333, 829931, 2840957, 557805, 739658 ####[facility] [address] [place] [address] Medical Director: Kb Cuellar MD Lymphocytes/100 WBC (Bld) 36.1 % Normal [facility] Comment on above: Performed By: #### 1 62109, 814871, 0614713, 703298, 307577 ####[facility] [address]peffbfz[address] [place] [address] Medical Director: Kb Cuellar MD [place] Count 0.48 x1000 Normal 0.10-1.00 [facility] Comment on above: Performed By: #### 1 74078, 491216, 4647464, 662145, 417685 ####[facility] [address] [place] [address] Medical Director: Kb Cuellar MD Monocytes/100 WBC (Bld) 5.8 % Normal [facility] Comment on above: Performed By: #### 1 62126, 217747, 9554594, 558081, 608156 ####[facility] [address]jpktv13822 [place] [address] Medical Director: Kb Cuellar MD Neutrophil Count (ANC) 4.55 x1000 Normal 1.40-8.80 So [facility] Comment on above: Performed By: #### 1 07256, 107122, 6475327, 562680, 971087 ####[facility] [address]aqc[address] [place] [address] Medical Director: Kb Cuellar MD Neutrophils/100 WBC (Bld) 55.9 % Normal [facility] Comment on above: Performed By: #### 1 99334, 753969, 5955630, 529190, 349666 ####[facility] [address] [place] [address] Medical Director: Kb Cuellar MD COMPMETAon 06-03-2023 Albumin [Mass/Vol] 3.7 g/dL Normal 3.4-5.0 [facility] Comment on above: Order Comment: Order ed on Fin# [id number] Performed By: #### 1 41742, 625214, 7267730, 238122, 879317 ####[facility] Qfa[address]zmw93165 [place] [address] Medical Director: Kb Cuellar MD Albumin/Globulin [Mass ratio] 1.3 {ratio} Normal [facility] Comment on above: Order Comment: Order ed on Fin# [id number] Performed By: #### 1 95550, 280451, 6067647, 577397, 094692 ####[facility] [address]mpxqyz41815 [place] [address] Medical Director: Kb Cuellar MD Alk Phos 85 unit/L Normal 45-117 [facility] Comment on above: Order Comment: Order ed on Fin# [id number] Performed By: #### 1 74619, 391622, 4284772, 792069, 637841 ####[facility] Ted[address]hmzr12[address] [place] [address] Medical Director: Kb Cuellar MD Bilirubin [Mass/Vol] 0.70 mg/dL Normal 0.30-1.20 [facility] Comment on above: Order Comment: Order ed on Fin# [id number] Result Comment: Use of this assay is not recommended for patients undergoing treatment with eltrombopag due to the potential for falsely elevated results. Performed By: #### 1 32245, 771371, 6781565, 526141, 871575 ####[facility] [address]ny[address] [place] [address] Medical Director: Kb Cuellar MD Calcium [Mass/Vol] 9.8 mg/dL Normal 8.7-10.4 [facility] Comment on above: Order Comment: Order ed on Fin# [id number] Performed By: #### 1 56975, 521760, 6909329, 812115, 628313 ####[facility] [address] [place] [address] Medical Director: Kb Cuellar MD Chloride [Moles/Vol] 108 mmol/L High 98-107 [facility] Comment on above: Order Comment: Order ed on Fin# [id number] Performed By: #### 1 33312, 783660, 3443007, 611455, 566422 ####[facility] [address]nh[address]stbk[address] [place] [address] Medical Director: Kb Cuellar MD CO2 [Moles/Vol] 24.0 mmol/L Normal 20.0-31.0 [facility] Comment on above: Order Comment: Order ed on [facility]# [id number] Performed By: #### 1 65353, 348877, 6303035, 397584, 934735 ####[facility] [address] [place] [address] Medical Director: Kb Cuellar MD Creatinine [Mass/Vol] 0.9 mg/dL High 0.5-0.8 [facility] Comment on above: Order Comment: Order ed on [facility]# [id number] Performed By: #### 1 27829, 813746, 5141504, 945064, 984600 ####[facility] [address]tp[address] [place] [address] Medical Director: Kb Cuellar MD GFR AA >60 Normal [facility] Comment on above: Order Comment: Order ed on [facility]# [id number] Result Comment: Afri can Guinean GFR Calc Medical judgement is necessary to interpret GFR. The calculated GFR may not accurately reflect renal status in patients >70 years, women, acutely ill hospitalized patients and patients with acute renal failure or known renal disease. The MDRD GFR formula is valid only for adults greater than 18 years of age. Note: Creatinine clearance (not GFR) should be used for drug dosing. Performed By: #### 1 94971, 207973, 2105348, 713283, 551644 ####[facility] [address] [place] [address] Medical Director: Kb Cuellar MD Globulin (S) [Mass/Vol] 2.9 g/dL Normal [facility] Comment on above: Order Comment: Order ed on [facility]# [id number] Performed By: #### 1 43550, 984455, 0010030, 062855, 163261 ####[facility] [address]fi[address] [place] [address] Medical Director: Kb Cuellar MD Glomerular Filtration Rate >60 Normal [facility] Comment on above: Order Comment: Order ed on Fin# [id number] Result Comment: Non- GFR Calc Medical judgement is necessary to interpret GFR. The calculated GFR may not accurately reflect renal status in patients >70 years, women, acutely ill hospitalized patients and patients with acute renal failure or known renal disease. The MDRD GFR formula is valid only for adults greater than 18 years of age. Note: Creatinine clearance (not GFR) should be used for drug dosing. Performed By: #### 1 93489, 933465, 9443707, 398803, 533735 ####[facility] [address]ounth[address] [place] [address] Medical Director: Kb Cuellar MD Glucose [Mass/Vol] 95 mg/dL Normal 74-106 [facility] Comment on above: Order Comment: Order ed on Fin# [id number] Performed By: #### 1 75573, 815101, 3177111, 259136, 903635 ####[facility] [address]da[address] [place] [address] Medical Director: Kb Cuellar MD GOT 28 unit/L Normal 15-37 [facility] Comment on above: Order Comment: Order ed on Fin# [id number] Performed By: #### 1 62650, 801848, 9943625, 860994, 889502 ####[facility] [address]wmn[address] [place] [address] Medical Director: Kb Cuellar MD GPT 36 unit/L Normal 10-49 [facility] Comment on above: Order Comment: Order ed on Fin# [id number] Performed By: #### 1 70169, 490032, 9007135, 608404, 471327 ####[facility] [address]xibvmol08108 [place] [address] Medical Director: Kb Cuellar MD Osmolality [Osmolality] 289 mosm/kg Normal 275-295 [facility] Comment on above: Order Comment: Order ed on Fin# [id number] Performed By: #### 1 76762, 790867, 1859322, 136337, 218765 ####[facility] [address]fzosn98285 [place] [address] Medical Director: Kb Cuellar MD Potassium [Moles/Vol] 4.4 mmol/L Normal 3.5-5.1 [facility] Comment on above: Order Comment: Order ed on Fin# [id number] Performed By: #### 1 71233, 541468, 1878691, 410862, 104053 ####[facility] [address]ww[address] [place] [address] Medical Director: Kb Cuellar MD Protein [Mass/Vol] 6.6 g/dL Normal 5.7-8.2 [facility] Comment on above: Order Comment: Order ed on Fin# [id number] Result Comment: Tota l Protein results may be increased in patients receiving dextran as a blood volume human factors advisor lead Performed By: #### 1 64885, 444988, 5824395, 016724, 678493 ####[facility] [address]fm[address] [place] [address] Medical Director: Kb Cuellar MD Sodium [Moles/Vol] 142 mmol/L Normal 135-145 [facility] Comment on above: Order Comment: Order ed on Fin# [id number] Performed By: #### 1 28755, 232015, 9845875, 271644, 579509 ####[facility] [address]zmh[address] [place] [address] Medical Director: Kb Cuellar MD Urea nitrogen [Mass/Vol] 29 mg/dL High 9-23 [facility] Comment on above: Order Comment: Order ed on Fin# [id number] Result Comment: - Ve nipuncture should occur prior to N-Acetyl Cysteine (NAC) or Metamizole (Sulpyrine) administration due to the potential for falsely depressed results. - Blood samples from some patients with monoclonal gammopathies may produce falsely elevated results Performed By: #### 1 03271, 289401, 5662473, 603560, 236065 ####[facility] [address] [place] [address] Medical Director: Kb Cuellar MD Urea nitrogen/Creatinine [Mass ratio] 32.2 mg/mg Normal [facility] Comment on above: Order Comment: Order ed on Fin# [id number] Performed By: #### 1 00981, 043518, 3354697, 923818, 488876 ####[facility] [address] [place] [address] Medical Director: Kb Cuellar MD FERRITINon 06-03-2023 Ferritin [Mass/Vol] 66 ng/mL Normal 10-291 [facility] Comment on above: Order Comment: Order ed on Fin# [id number] Result Comment: Seru m ferritin values are elevated in the presence of the following conditions and do not reflect actual body iron stores: - Inflammation - Significant tissue destruction - Liver disease - Malignancies such as acute leukemia and Hodgkin?s disease - Therapy with iron supplements Performed By: #### 1 24545, 241485, 1795411, 416538, 661959 ####[facility] [address] [place] [address] Medical Director: Kb Cuellar MD HEMOon 06-03-2023 DIFF? No Normal [facility] Comment on above: Performed By: #### 1 40705, 353277, 6077319, 500908, 564671 ####[facility] [address] [place] [address] Medical Director: Kb Cuellar MD Erythrocyte distribution width (RBC) [Ratio] 13.5 % Normal 11.5-14.5 [facility] Comment on above: Performed By: #### 1 71414, 759541, 4160783, 772517, 291077 ####[facility] [address]vssnwab54[address] [place], [place] [address]) [phone] Director: Kb Cuellar MD Hematocrit (Bld) [Volume fraction] 46.7 % High 36.0-46.0 [facility] Comment on above: Performed By: #### 1 12656, 417502, 4562459, 705628, 429044 ####[facility] [address]arbe16[address] [place] [address] Medical Director: Kb Cuellar MD Hemoglobin (Bld) [Mass/Vol] 15.4 g/dL Normal 12.0-16.0 [facility] Comment on above: Performed By: #### 1 12827, 002600, 4267820, 447268, 464957 ####[facility] Xx[address]zcvme48[address] [place], [place] [id number]) [phone] Director: Kb Cuellar MD Instr WBC 8.2 Normal [facility] Comment on above: Performed By: #### 1 06291, 913451, 7539708, 933044, 283357 ####[facility] [address]sdsrage25605 [place] [address] Medical Director: Kb Cuellar MD MCH (RBC) [Entitic mass] 30.2 pg Normal 27.0-34.0 [facility] Comment on above: Performed By: #### 1 96313, 841007, 5523988, 470624, 928876 ####[facility] [address]or[address]cis[address] [place] [address] Medical Director: Kb Cuellar MD MCHC (RBC) [Mass/Vol] 32.9 g/dL Normal 32.0-37.0 [facility] Comment on above: Performed By: #### 1 74994, 157578, 9498737, 647909, 578711 ####[facility] [address]ccao[address] [place] [address] Medical Director: Kb Cuellar MD MCV (RBC) [Entitic vol] 91.7 fL Normal 80.0-100.0 [facility] Comment on above: Performed By: #### 1 24584, 213029, 0175752, 407142, 695309 ####[facility] [address]wqy[address] [place] [address] Medical Director: Kb Cuellar MD Nucleated RBC 0 /100WBC Normal [facility] Comment on above: Performed By: #### 1 60512, 948032, 5751960, 652085, 524472 ####[facility] [address]qgeb32085 [place] [address] Medical Director: Kb Cuellar MD Platelet 209 x10 Normal 150-450 [facility] Comment on above: Performed By: #### 1 78115, 387632, 8319096, 881221, 975582 ####[facility] [address]joqcn52997 [place] [address] Medical Director: Kb Cuellar MD Platelet mean volume (Bld) [Entitic vol] 8.3 fL Normal 7.4-10.4 [facility] Comment on above: Performed By: #### 1 86501, 546206, 7869641, 296255, 604647 ####[facility] [address]vt[address]wh[address]1994 [place] [address] Medical Director: Kb Cuellar MD RBC 5.10 x10 Normal 4.20-5.40 [facility] Comment on above: Result Comment: Note : RBC morphology is normal unless otherwise stated. Evaluation performed only if differential is requested. Performed By: #### 1 54082, 848818, 7635878, 831000, 253988 ####[facility] [address]sf[address] [place] [address] Medical Director: Kb Cuellar MD WBC 8.2 x10 Normal 4.5-11.0 [facility] Comment on above: Performed By: #### 1 04940, 651476, 4245571, 147496, 280668 ####[facility] [address] [place], [place] [address] Medical Director: Kb Cuellar MD IRON GROUPon 06-03-2023 Iron [Mass/Vol] 94 ug/dL Normal 40-170 [facility] Comment on above: Order Comment: Order ed on Fin# [id number] Result Comment: Resu lts may be inaccurate if performed within 14 days of IV iron dextran administration. Performed By: #### 1 65475, 341903, 6914515, 892234, 029032 ####[facility] [address]dkf158[address] [place] [address] Medical Director: Kb Cuellar MD Saturation 27.9 % Normal 20.0-50.0 [facility] Comment on above: Order Comment: Order ed on Fin# [id number] Performed By: #### 1 18670, 659968, 1055301, 047050, 887799 ####[facility] [address]ttq12[address] [place] [address] Medical Director: Kb Cuellar MD TIBC 337 ug/ml Normal 250-425 [facility] Comment on above: Order Comment: Order ed on Fin# [id number] Result Comment: Resu lts may be inaccurate if performed within 14 days of IV iron dextran administration. Performed By: #### 1 94917, 426530, 0352078, 340077, 664157 ####[facility] [address]lhmmrey98258 [place] [address] Medical Director: Kb Cuellar MD [facility] Nursing Progress Note on 06-03-2023 [facility] Nursing Progress Note Pt seen in clinic today with Em REDDING for f/u secondary polycythemia. Labs Q 12 weeks X2 outpatient- pt given orders. F/u in 9 months for office visit with Em REDDING and labs. Normal [facility] MedOnc-OP Visit Summaryon MedOnc-OP Visit Summary MIRNA BERMUDEZ :1950 [facility]:[id number] Registration Date:06/03/2023 Oncology Ambulatory Visit Instructions Your Diagnosis Secondary polycythemia Sleep apnea Vaginal burning Your Care Team Attending Physician - ABBIE REDDING, EM Primary Care Physician - MARYBETH CHOE, LULÚ Discharge Vitals Heart Rate (Peripheral) 68 Respiratory Rate 16 Blood Pressure 153/77 Height 68.00 in (172.72 cm) Height 68.00 in (172.72 cm) Weight 208.37 lb (94.5 kg) Weight (Dosing) 208.37 lb (94.5 kg) BMI 31.68 Systolic Blood Pressure: 153 mmHg High (06/03/23 14:05:00) Diastolic Blood Pressure: 77 mmHg (06/03/23 14:05:00) Respiratory Rate: 16 br/min (06/03/23 14:05:00) SpO2: 99 % (06/03/23 14:05:00) Oxygen Therapy: Room air (06/03/23 14:05:00) Peripheral Pulse Rate: 68 bpm (06/03/23 14:05:00) Height/Length Measured: 172.72 cm (06/03/23 14:05:00) Height/Length Dosin.72 cm (06/03/23 14:05:00) Weight Measured: 94.5 kg (06/03/23 14:05:00) Weight Dosin.5 kg (06/03/23 14:05:00) BSA Measured: 2.13 (06/03/23 14:05:00) Body Mass Index Measured: 31.68 kg/m2 (06/03/23 14:05:00) Ht/Wt Measurement Refused by Patient?2: No (06/03/23 14:05:00) What to do next Instructions From Your Provider - Continue donating to [facility] - Labs every 12 weeks, can do close to home if they will - Follow-up 9-12 months with labs same day. Call with any concerns. Happy holidays! Scheduled Follow-Up Appointments No results Medications What How Much When Instructions Unchanged losartan (losartan 25 mg oral tablet) 1/2 tab DAILY Unchanged pantoprazole (Protonix 40 mg oral delayed release tablet) 1 Tabs Oral TWICE A DAY Test Results Estimated Creatinine Clearance - 50.54 mL/min (06/03/2023) Last 24 Hours Chemistry Estimated Creatinine Clearance 50.54 mL/min 06/03/23 Hematology WBC 8.2 x103/uL 06/03/23 RBC 5.10 x106/uL 06/03/23 HGB 15.4 g/dL 06/03/23 HCT 46.7 % 06/03/23 MCV 91.7 fL 06/03/23 MCH 30.2 pg 06/03/23 MCHC 32.9 g/dL 06/03/23 RDW 13.5 % 06/03/23 Platelet 209 x103/uL 06/03/23 MPV 8.3 fL 06/03/23 Lymph % 36.1 % 06/03/23 [place] % 5.8 % 06/03/23 Neutrophil % 55.9 % 06/03/23 Eosin % 1.3 % 06/03/23 Basos % 0.9 % 06/03/23 Lymph Count 2.94 x1000 06/03/23 [place] Count 0.48 x1000 06/03/23 Neutrophil Count (ANC) 4.55 x1000 06/03/23 Eos Count 0.10 x1000 06/03/23 Baso Count 0.08 x1000 06/03/23 Nucleated RBC 0 /100WBC 06/03/23 Medications Administered Oncology Visit Instructions-Medications : Call your provider right away... If you are recieving cancer treatment and * Have a fever of 100.4 or above or chills * Are experiencing symptoms or side effects related to your treatment that are new or worsening * [facility]: [phone] Common Emergency Awareness Tips IS IT A STROKE? Act FAST and Check for these signs: FACE Does the face look uneven? ARM Does one arm drift down? SPEECH Does their speech sound strange? TIME Call at any sign of stroke Heart Attack Signs Chest discomfort: Most heart attacks involve discomfort in the center of the chest and lasts more than a few minutes, or goes away and comes back. It can feel like uncomfortable pressure, squeezing, fullness or pain. Discomfort in upper body: Symptoms can include pain or discomfort in one or both arms, back, neck, jaw or stomach. Shortness of breath: With or without discomfort. Other signs: Breaking out in a cold sweat, nausea, or lightheaded. Remember, MINUTES DO MATTER. If you experience any of these heart attack warning signs, call 02-25- to get immediate medical attention! Normal [facility] Oncology Clinic Intake-Texto n 06-03-2023 Oncology Clinic Intake-Text Oncology Clinic Intake Entered On: 06/03/2023 14:09 EST Performed On: 06/03/2023 14:05 EST by Bahvani Austin Summary Referral to Cancer Center : Rosalba Kwong NP Chief Complaint : 6 month follow up with labs Primary Support Contact : Serina Daughter [phone] Lida Daughter Accept Blood Products if Necessary : Yes Labs Drawn Option : Peripheral Bhavani Austin - 06/03/2023 14:05 EST Infection Screening - Ambulatory Recent travel from [facility] within 14 days of symptom onset, AND fever AND symptoms of lower respiratory illness. : No Close contact with a laboratory -confirmed 2019-nCoV patient within 14 days of symptom onset AND EITHER fever OR symptoms of lower respiratory illness. : No Bhavani Austin - 06/03/2023 14:05 EST Vital Signs Pulse Rate : 68 bpm Systolic Blood Pressure : 153 mmHg (HI) Diastolic Blood Pressure : 77 mmHg SpO2 : 99 % Bhavani Austin - 06/03/2023 14:11 EST Require BP : Yes Respiratory Rate : 16 br/min Oxygen Therapy : Room air Ht/Wt Measurement Refused by Patient? : No Height/Length Dosing : 172.72 cm(Converted to: 5.67 ft, 68.00 in) Weight Dosing : 94.5 kg(Converted to: 208.337 lb) BSA Dosing : 2.13 Body Mass Index Dosing : 32 Height/Length Measured : 172.72 cm(Converted to: 68.00 in) Weight Measured : 94.5 kg(Converted to: 208.337 lb) BSA Measured : 2.13 Body Mass Index Measured : 31.68 kg/m2 Bhavani Austin - 06/03/2023 14:05 EST Depression Screening Is patient currently : None of the Below Feeling Down, Depressed, Hopeless : Not at all Little Interest - Pleasure in Activities : Not at all Initial Depression Screen Score : 0 Depression Screening Score 0 : No Bhavani Austin - 06/03/2023 14:05 EST Advance Directive Advanced Directives : Yes Advance Directive Type : Living will Advance Directive Location : Other: at home Bhavani Austin - 06/03/2023 14:05 EST Falls Risk Assessment Is the patient ambulatory (mobile) : Yes Have you had 2 or more falls in the past year : No Have you had a fall within the past year that has caused an injury : No Bhavani Austin - 06/03/2023 14:05 EST Normal [facility] Phone Msgon 05-07-2023 Phone Msg - From: Rosalba Damon RN To: [facility] schedulers; Sent: 05/06/2023 14:31:41 EST Subject: [facility] Scheduling Request- R/S 05/11 APPT Due Date/Time: 05/11/2023 14:31:00 EST Caller Name: MIRNA BERMUDEZ; Caller Number: H Provider to be scheduled: EM Follow up details: 05/11 TO 06/03 AFTERNOON Clinical Trial Z00.6 CC 30-chelsie if yes IV Access: please chelsie one Peripheral Y Port only Port with treatment Labs needed and ordered- chelsie if yes: Y; POSSIBLE LABS. PT MAY GET PRIOR TO, WILL CHECK WITH EM rescheduled and mailed Normal [facility] Phone Msgon 05-06-2023 Phone Msg - From: Cynthia Mancilla To: Em Leiva's Nurse Partner; Sent: 05/06/2023 13:06:23 EST Subject: R/S Caller Name: MIRNA BERMUDEZ; Caller Number: H PT CALLED AND NEEDS TO R/S APPT AND PUSH THEM OUT UNTIL JUNE. PLEASE ADVISE. TOMASX Spoke with pt and stated that she can come in the 06/03 in the afternoon, it looks like she has some openings. Can we schedule her for a lab appt as well. Will discuss with Em REDDING if she wants labs sooner or at Dec appt. From: Rosalba Damon RN (Em Leiva's Nurse Partner) To: Cynthia Mancilla; Sent: 05/06/2023 13:30:09 EST Subject: RE: R/S Caller Name: MIRNA BERMUDEZ; Caller Number: H Responding to Cynthia. Normal [facility] Basophil percentageOrdered B y: Omaira Barrera on 04-01-2023 Bilirubin [Mass/Vol] 0.70 mg/dL 0.20-1.00 [facility] Comment on above: For patients on eltr ombopag therapy, use of Dimension [employer] TBIL is not recommended. Chloride [Moles/Vol] 110 mmol/L 98-107 [facility] Glucose [Mass/Vol] 91 mg/dL 74-106 [facility] Potassium [Moles/Vol] 3.9 mmol/L 3.5-5.1 [facility] Protein [Mass/Vol] 6.8 g/dL 6.4-8.2 [facility] Sodium [Moles/Vol] 140 mmol/L 136-145 [facility] Laboratory - Chemistry and C hemistry - challengeOrdered By: Omaira Barrera on 04-01-2023 ALP [Catalytic activity/Vol] 85 U/L 45-117 [facility] ALT [Catalytic activity/Vol] 58 U/L 13-56 [facility] CO2 [Moles/Vol] 22.0 mmol/L 21.0-32.0 [facility] Globulin (S) [Mass/Vol] 3.2 g/dL 2.2-4.2 [facility] Urea nitrogen/Creatinine [Mass ratio] 27.5 mg/mg 10-20 [facility] No Panel InformationOrdered By: Omaira Barrera on 04-01-2023 Estimated GFR (MDRD) Amer 78 mL/min >60 [facility] Comment on above: GFR Calc Estimated GFR (MDRD) Non-Af Amer 65 mL/min >60 [facility] Comment on above: Non- GFR Calc Hepatitis B Surface Antigen Non-Reactive Nonreactive [facility] Hepatitis C Antibody Non-Reactive Nonreactive [facility] Comment on above: Non Reactive: < 0.8 Equivocal: >/= 0.8 to < 1.0 Reactive: >/= 1.0The CDC recommends that a reactive/equivocal HCV antibody result be followed up by the HCV Nucleic Acid Amplificationtest ([id number]) Serum hepatitis B virus surf sj antibody IgG detectionOrdered By: Omaira Barrera on 04-01-2023 HBV surface IgG Ql (S) Non-Reactive [facility] Comment on above: Non Reactive: Incons istent with immunity less than <10 mIU/mL Reactive: Consistent with immunity greater than or equal to 10 mIU/mL Serum or plasma albumin manisha urement (mass/volume)Ordered By: Omaira Barrera on 04-01-2023 Albumin [Mass/Vol] 3.6 g/dL 3.2-5.0 [facility] Serum or plasma albumin/glob ulin mass ratioOrdered By: Omaira Barrera on 04-01-2023 Albumin/Globulin [Mass ratio] 1.1 {ratio} 0.9-2.4 [facility] Serum or plasma calcium manisha urement (mass/volume)Ordered By: Omaira Barrera on 04-01-2023 Calcium [Mass/Vol] 9.3 mg/dL 8.5-10.1 [facility] Serum or plasma creatinine m easurement (mass/volume)Ordered By: Omaira Barrera on 04-01-2023 Creatinine [Mass/Vol] 0.91 mg/dL 0.55-1.02 [facility] Comment on above: The validity of the calculated GFR & GFRAA in patients over 70 years has not been determined. Clinical correlation is essential. Serum or plasma urea nitroge n measurement (mass/volume)Ordered By: Omaira Barrera on 04-01-2023 Urea nitrogen [Mass/Vol] 25 mg/dL 7-18 [facility] Thin prep Papanicolaou smear with manual screeningOrdered By: Omaira Barrera on 04-01-2023 Thin prep Papanicolaou smear with manual screening 28 U/L 15-37 [facility] Thin prep Papanicolaou smear with manual screening 8 5-15 [facility] Absolute lymphocyte countOrd ered By: Omaira Barrera on 12-21-2022 Lymphocytes Auto (Unsp spec) [#/Vol] 2.07 10*3/uL 0.83-4.51 [facility] Basophil percentageOrdered B y: Omaira Barrera on 12-21-2022 Basophils/100 WBC (Bld) 0.6 % 0-1 [facility] Bilirubin [Mass/Vol] 0.50 mg/dL 0.20-1.00 [facility] Comment on above: For patients on eltr ombopag therapy, use of Dimension [employer] TBIL is not recommended. Chloride [Moles/Vol] 109 mmol/L 98-107 [facility] Eosinophils/100 WBC (Bld) 1.3 % 0-5 [facility] Glucose [Mass/Vol] 92 mg/dL 74-106 [facility] Neutrophils (Bld) [#/Vol] 4.3 10*3/uL 2.0-7.7 [facility] Neutrophils/100 WBC (Bld) 61.9 % 47-70 [facility] Potassium [Moles/Vol] 4.1 mmol/L 3.5-5.1 [facility] Protein [Mass/Vol] 7.3 g/dL 6.4-8.2 [facility] Sodium [Moles/Vol] 140 mmol/L 136-145 [facility] WBC (Bld) [#/Vol] 6.9 10*3/uL 4.4-11.0 [facility] Blood erythrocytes count (nu mber/volume)Ordered By: Omaira Barrera on 12-21-2022 RBC (Bld) [#/Vol] 5.35 10*6/uL 4.2-5.4 [facility] Blood hemoglobin measurement (mass/volume)Ordered By: Omaira Barrera on 12-21-2022 Hemoglobin (Bld) [Mass/Vol] 16.0 g/dL 12.0-15.0 [facility] Blood lymphocytes/100 leukoc ytesOrdered By: Omaira Barrera on 12-21-2022 Lymphocytes/100 WBC (Bld) 29.9 % 19-41 [facility] Blood monocytes/100 leukocyt esOrdered By: Omaira Barrera on 12-21-2022 Monocytes/100 WBC (Bld) 5.9 % 0-10 [facility] Blood platelet mean volumeOr dered By: Omaira Barrera on 12-21-2022 Platelet mean volume (Bld) [Entitic vol] 10.8 fL 6.2-12.0 [facility] Determination of erythrocyte mean corpuscular volume (MCV)Ordered By: Omaira Barrera on 12-21-2022 MCV (RBC) [Entitic vol] 92.0 fL 81-99 [facility] Dilute Tadeo's viper venom timeOrdered By: Omaira Barrera on 12-21-2022 dRVVT Coag (PPP) [Time] 43.0 s 0.0-47.0 [facility] Hematocrit Auto (Bld) [Volum e fraction]Ordered By: Omaira Barrera on 12-21-2022 Hematocrit (Bld) [Volume fraction] 49.2 % 37-47 [facility] INR in Blood by Coagulation assayOrdered By: Omaira Barrera on 12-21-2022 INR Coag (Bld) [Relative time] 0.9 {INR} [facility] Laboratory - Chemistry and C hemistry - challengeOrdered By: [facility] on 12-21-2022 ALP [Catalytic activity/Vol] 87 U/L 45-117 [facility] ALT [Catalytic activity/Vol] 77 U/L 13-56 [facility] CO2 [Moles/Vol] 25.0 mmol/L 21.0-32.0 [facility] Globulin (S) [Mass/Vol] 3.5 g/dL 2.2-4.2 [facility] Urea nitrogen/Creatinine [Mass ratio] 27.7 mg/mg 10-20 [facility] - CoagulationOrde red By: Omaira Barrera on 12-21-2022 aPTT Coag (Bld) [Time] 33.9 s 24.1-36.2 [facility] PT Coag (PPP) [Time] 11.8 s 11.7-14.9 [facility] - Hematology and Cell countsOrdered By: Omaira Barrera on 12-21-2022 Erythrocyte distribution width (RBC) [Entitic vol] 43.3 fL 35.1-43.9 [facility] Erythrocyte distribution width (RBC) [Ratio] 12.9 % 11.6-14.6 [facility] Immature granulocytes/100 WBC (Bld) 0.400 % 0.0-0.9 [facility] Comment on above: IG% - Immature Granu locytes (promyelocytes, myelocytes and metamyelocytes) > 1% indicates that a LEFT SHIFT is Present. MCH (RBC) [Entitic mass] 29.9 pg 27.0-32.0 [facility] Nucleated RBC/100 WBC (Bld) [Ratio] 0 % 0-5 [facility] - Miscellaneous t estsOrdered By: Omaira Barrera on 12-21-2022 Service comment (Unsp spec) [Interp] Comment . [facility] Comment on above: Results do not indic ate the presence of a LupusAnticoagulant: abnormal high screening results (PTT-LA,dRVVT, mixing studies), may be due to medication (heparin,warfarin, aspirin), Factor inhibitors, anticardiolipinantibodies, or poor specimen integrity.Performed at: [employer] [id number] Director: Balbina aTdeo MD, Phone: [phone] MCHC Auto (RBC) [Mass/Vol]Or dered By: Omaira Barrera on 12-21-2022 MCHC (RBC) [Mass/Vol] 32.5 g/dL 32-36 [facility] No Panel InformationOrdered By: Omaira Barrera on 12-21-2022 Estimated GFR (MDRD) Amer 75 mL/min >60 [facility] Comment on above: GFR Calc Estimated GFR (MDRD) Non-Af Amer 62 mL/min >60 [facility] Comment on above: Non- GFR Calc Miscellaneous Test Comment MAILED SPECIMEN [facility] Platelets bldOrdered By: Cristiana Barrera on 12-21-2022 Platelets (Bld) [#/Vol] 172 10*3/uL 150-450 [facility] Serum or plasma albumin manisha urement (mass/volume)Ordered By: Omaira Barrera on 12-21-2022 Albumin [Mass/Vol] 3.8 g/dL 3.2-5.0 [facility] Serum or plasma albumin/glob ulin mass ratioOrdered By: Omaira Barrera on 12-21-2022 Albumin/Globulin [Mass ratio] 1.1 {ratio} 0.9-2.4 [facility] Serum or plasma calcium manisha urement (mass/volume)Ordered By: Omaira Barrera on 12-21-2022 Calcium [Mass/Vol] 9.6 mg/dL 8.5-10.1 [facility] Serum or plasma creatinine m easurement (mass/volume)Ordered By: Omaira Barrera on 12-21-2022 Creatinine [Mass/Vol] 0.94 mg/dL 0.55-1.02 [facility] Comment on above: The validity of the calculated GFR & GFRAA in patients over 70 years has not been determined. Clinical correlation is essential. Serum or plasma urea nitroge n measurement (mass/volume)Ordered By: Omaira Barrera on 12-21-2022 Urea nitrogen [Mass/Vol] 26 mg/dL 7-18 [facility] Thin prep Papanicolaou smear with manual screeningOrdered By: Omaira Barrera on 12-21-2022 Thin prep Papanicolaou smear with manual screening 42 U/L 15-37 [facility] Thin prep Papanicolaou smear with manual screening 6 5-15 [facility] Thin prep Papanicolaou smear with manual screening 41.6 sec 0.0-47.6 [facility] Thin prep Papanicolaou smear with manual screening 1.08 Ratio 0.00-1.34 [facility] Thin prep Papanicolaou smear with manual screening 37.4 sec 0.0-43.5 [facility] Thin prep Papanicolaou smear with manual screening Comment: . [facility] Comment on above: No lupus anticoagula nt was detected. Thrombin time in platelet po or plasmaOrdered By: Omaira Barrera on 12-21-2022 Thrombin time Coag (PPP) [Time] 20.5 sec 0.0-23.0 [facility] Urine creatinine measurement (mass/volume)Ordered By: Omaira Barrera on 12-21-2022 Creatinine (U) [Mass/Vol] 50.90 mg/dL NO RANGE EST. [facility] Urine protein measurement (m ass/volume)Ordered By: Omaira Barrera on 12-21-2022 Protein (U) [Mass/Vol] mg/dL 0.0-11.8 [facility] Urine protein/creatinine mas s ratioOrdered By: Omaira Barrera on 12-21-2022 Protein/Creatinine (U) [Mass ratio] 110 mg/g CRE 0-200 [facility] ED NOTEon 09-20-2021 ED NOTE HNO ID: [id number] Author: Rosina Linares RN Service: ? Author Type: Registered Nurse Type: ED Notes Filed: 09/20/2021 10:41 AM Note Text: Pt declines repeat vitals Normal [facility] ED NOTE HNO ID: [id number] Author: Rosina Linares RN Service: ? Author Type: Registered Nurse Type: ED Notes Filed: 09/20/2021 10:41 AM Note Text: Dr Tenorio speaks with pt Normal [facility] ED NOTE HNO ID: [id number] Author: Rosina Linares RN Service: ? Author Type: Registered Nurse Type: ED Notes Filed: 09/20/2021 9:56 AM Note Text: Pt arrives c/o cough for 2 weeks, states woke up with rattling in chest Denies CP/SOB Denies fever, reports chills for 2 days Normal [facility] ED PROV NOTEon 09-20-2021 ED PROV NOTE HNO ID: [id number] Author: Yuliana Tenorio DO Service: Emergency Medicine Author Type: Physician Type: ED Provider Notes Filed: 09/20/2021 10:58 AM Note Text: ED Provider Note Patient Name: Mirna Bermudez : 1950 SERVICE DATE: 09/20/21 History Patient presents with: Cough 70-year-old female with past medical history as listed below presenting for complaint of persistent cough x2 weeks. Patient states that she initially had viral symptoms including nasal congestion, rhinorrhea, fatigue and cough. Cough has never been productive. No fevers, but reports chills over the past 2 days. She reports hearing a rattling in her chest this morning and became concerned for pneumonia. She denies shortness of breath at rest or with exertion. Hemoptysis or increased sputum production, sore throat, pleuritic pain, or localized chest discomfort. Denies fatigue, myalgias, or generalized weakness. 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 - Unspecified vitamin D deficiency 09/2008 27.4 rec tx 01/02 48 PAST SURGICAL HISTORY Procedure Laterality Date - COLONOSCOPY 09/11/15 /Rpt in 5 years - COLONOSCOPY FLX DX W/COLLJ SPEC WHEN PFRMD 2004 Colonoscopy POLYPS - COLONOSCOPY FLX DX W/COLLJ SPEC WHEN PFRMD 2007 Colonoscopy - ESOPHAGOGASTRODUODENOSCO PY TRANSORAL DIAGNOSTIC EGD HIATAL HERNIA - HYSTEROSCOPY 2008 polyp of uterus - HYSTEROSCOPY, DIAGNOSTIC (SEPARATE 09/2006 POLYPS - LIG/TRNSXJ FLP TUBE ABDL/VAG APPR UNI/BI Bilateral AGE 34 - PAST SURGICAL HISTORY OF 2000 Tarsal tunnel surgery on left foot - REMOVE TONSILS/ADENOIDS,12+ Y/O age 16 - WRIST SURGERY HX Left 2000 external fixation for shattered left wrist FAMILY HISTORY Problem Relation Age of Onset - Coronary Artery Disease Mother triple bypass age 79, age 87 - Coronary Artery Disease Brother triple bypass age 52 - Stroke Father age 72 - other (healthy) Sister - other (healthy) Brother - other (healthy) Daughter - other (healthy) Son - other (healthy) Daughter - Breast Cancer No Family History - Cervical Cancer No Family History - Ovarian cancer No Family History - Uterine Cancer No Family History - Colon Cancer No Family History - Pancreatic Cancer No Family History - Prostate Cancer No Family History Social History Tobacco Use - Smoking status: Former Smoker Packs/day: 0.50 Years: 1.00 Pack years: 0.50 Types: Cigarettes - Smokeless tobacco: Never Used - Tobacco comment: QUIT AT AGE 17 Substance and Sexual Activity - Alcohol use: Yes Comment: SOCIAL - Drug use: No - Sexual activity: Yes Partners: Male control/protection: Surgical Comment: TL ALLERGIES Allergen Reactions - No Known Medication* - Percocet [Oxycodone* Other: See Comments Pt states she had horrible nightmares Review of Systems Constitutional: Negative for chills, fatigue and fever. HENT: Negative for congestion, rhinorrhea, sinus pressure and sore throat. Eyes: Negative for photophobia and visual disturbance. Respiratory: Positive for cough. Negative for chest tightness, shortness of breath and wheezing. Cardiovascular: Negative for chest pain, palpitations and leg swelling. Gastrointestinal: Negative for abdominal distention, abdominal pain, constipation, diarrhea, nausea and vomiting. Genitourinary: Negative for decreased urine volume, difficulty urinating, dysuria, frequency, hematuria, urgency, vaginal bleeding, vaginal discharge and vaginal pain. Musculoskeletal: Negative for arthralgias, back pain, myalgias and neck pain. Skin: Negative for color change and rash. Allergic/Immunologic: Negative for immunocompromised state. Neurological: Negative for dizziness, weakness, light-headedness and headaches. Psychiatric/Behavioral: Negative for agitation and confusion. Physical Exam Vitals [09/20/21 0952] BP Pulse Temp Temp src Resp SpO2 Weight Height 138/72 80 37.1 ?C (98.7 ?F) Temporal 18 99 % 89.4 kg (197 lb) -- Physical Exam Vitals and nursing note reviewed. Constitutional: General: She is not in acute distress. Appearance: Normal appearance. She is well-developed. She is not ill-appearing or diaphoretic. Comments: Non-toxic well appearing female, no evidence of airway or respiratory compromise - afebrile and hemodynamically stable. In NAD. HE (more content not included)... Normal [facility] ED NOTEon 12-04-2018 ED NOTE HNO ID: [id number] Author: Lucrecia (Medic) Zohreh Powers Service: Emergency Medicine Author Type: Maintenance Mechanic Elevators and Top Loader Type: ED Notes Filed: 12/07/2018 1:29 PM Note Text: Emergency Services: ED Call Back Questionnaire SERVICE DATE: 12/04/2018 Are you feeling better? Yes Any questions about discharge instructions and follow-up care? No Were you able to make a follow up appointment? No, referred to appointment hotline Do you have any further questions? No Is there anything that we could have done differently to improve your ED visit? No SIGNATURE: Zohreh Bridges PATIENT NAME: Mirna Bermudez DATE: December 07, 2018 TIME: 1:29 PM [facility] ED NOTE HNO ID: [id number] Author: Mila GonsalezRnSena Fung RN Service: ? Author Type: Registered Nurse Type: ED Notes Filed: 12/04/2018 1:30 PM Note Text: Pt received written and verbal discharge instructions. Pt verbalizes understanding. All questions answered. Pt education on medications and dosages. Pt verbalized understanding. Instructed pt to follow up with PCP. No acute distress noted. Instructed pt to come back to Emergency Room if symptoms worsen. Pt verbalized understanding. All belongings with pt. [facility] ED NOTE HNO ID: [id number] Author: Mila Lopez) NEREIDA Fung Service: ? Author Type: Registered Nurse Type: ED Notes Filed: 12/04/2018 12:52 PM Note Text: Pt is resting comfortably in bed with call light in reach. Pt updated on plan of care. Bed is locked and in the lowest position. Pt is stable. No acute distress. Will continue to monitor. [facility] ED NOTE HNO ID: [id number] Author: Mila GonsalezRnSena Fung RN Service: ? Author Type: Registered Nurse Type: ED Notes Filed: 12/04/2018 12:22 PM Note Text: Medication administered as ordered per protocol. Medication education provided with verbal acknowledgement from pt. Pt updated to plan of care. Safety maintained. Will continue to monitor. [facility] ED NOTE HNO ID: [id number] Author: Mila Fung RN Service: ? Author Type: Registered Nurse Type: ED Notes Filed: 12/04/2018 11:54 AM Note Text: Assumed pt care and agree with previous RN assessments. Plan of care -Monitor Patient's Vital Signs for changes in condition -Monitor patient for changes in pain -Maintain patient safety and privacy -Provide comfort measures-Call light in place Siderails up, bed in locked and low position [facility] ED NOTE HNO ID: [id number] Author: Kelly GonsalezRnSena De La Torre RN Service: ? Author Type: Registered Nurse Type: ED Notes Filed: 12/04/2018 11:46 AM Note Text: Patient presents with left wrist/hand injury, had mechanical fall, tripped and caught self with that hand. Patient has had prior surgery to that side about 10 years ago [facility] ED PROV NOTEon 12-04-2018 Protein mass conc HNO ID: [id number] Author: Winifred Brar (Pa) Service: ? Author Type: Physician Utilities Ground Worker Type: ED Provider Notes Filed: 12/04/2018 1:16 PM Note Text: ED Provider Note Patient Name: Mirna Bermudez SERVICE DATE: 12/04/18 History Patient presents with: Fall: tripped and fell Wrist/forearm Injury (Ed): left wrist HPI- Patient is a 68-year-old white female who was getting into her truck to help move it when she slipped and fell and landed on the left outstretched hand this morning. Since then the left versus been sore and painful. He is concerned she has a previous left wrist fracture that required an ORIF. She did not take anything for pain is right-hand dominant. SHe denies any other injury associated with the fall. 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 - Unspecified vitamin D deficiency 09/2008 27.4 rec tx 01/02 48 PAST SURGICAL HISTORY Procedure Laterality Date - COLONOSCOP W/ OR W/O BRSH SPEC 2004 Colonoscopy POLYPS - COLONOSCOP W/ OR W/O BRSH SPEC 2007 Colonoscopy - COLONOSCOPY 09/11/15 /Rpt in 5 years - EGD W/O OR W/BRUSH/WASH EGD HIATAL HERNIA - HYSTEROSCOPY 2009 polyp of uterus - HYSTEROSCOPY, DIAGNOSTIC (SEPARATE 09/2006 POLYPS - LIGATE FALLOPIAN TUBE Bilateral AGE 34 - PAST SURGICAL HISTORY OF 2000 Tarsal tunnel surgery on left foot - REMOVE TONSILS/ADENOIDS,12+ Y/O age 16 - WRIST SURGERY HX Left 2001 external fixation for shattered left wrist FAMILY HISTORY Problem Relation Age of Onset - Coronary Artery Disease Mother triple bypass age 79, age 87 - Coronary Artery Disease Brother triple bypass age 52 - Stroke Father age 72 - other (healthy) Sister - other (healthy) Brother - other (healthy) Daughter - other (healthy) Son - other (healthy) Daughter - Breast Cancer No Family History - Cervical Cancer No Family History - Ovarian cancer No Family History - Uterine Cancer No Family History - Colon Cancer No Family History - Pancreatic Cancer No Family History - Prostate Cancer No Family History Social History Tobacco Use - Smoking status: Former Smoker Packs/day: 0.50 Years: 1.00 Pack years: 0.50 Types: Cigarettes - Smokeless tobacco: Never Used - Tobacco comment: QUIT AT AGE 17 Substance and Sexual Activity - Alcohol use: Yes Comment: SOCIAL - Drug use: No - Sexual activity: Yes Partners: Male control/protection: Surgical Comment: TL ALLERGIES Allergen Reactions - No Known Medication* - Percocet [Oxycodone* Other: See Comments Pt states she had horrible nightmares Review of Systems Constitutional: Negative for activity change, chills, fatigue and fever. HENT: Negative for congestion, ear pain, postnasal drip, sore throat and trouble swallowing. Eyes: Negative for photophobia, pain and itching. Respiratory: Negative for cough, chest tightness and shortness of breath. Cardiovascular: Negative for chest pain. Gastrointestinal: Negative for abdominal distention, constipation, nausea and vomiting. Genitourinary: Negative for dysuria. Musculoskeletal: Positive for arthralgias and joint swelling. Negative for back pain, gait problem and myalgias. Skin: Negative for color change, rash and wound. Neurological: Negative for dizziness and headaches. All other systems reviewed and are negative. Physical Exam BP 141/72 Pulse 57 Temp (Src) 97.5 (Oral) Resp 16 Ht 5' 8 (1.73m) Wt 202 lb (91.6kg) SpO2 98% BMI 30.72 kg/(m2). O2 Therapy: Room Air Physical Exam Constitutional: She is oriented to person, place, and time. She appears well-developed and well-nourished. HENT: Head: Normocephalic and atraumatic. Eyes: Pupils are equal, round, and reactive to light. Conjunctivae and EOM are normal. Neck: Normal range of motion. Neck supple. Cardiovascular: Normal rate, regular rhythm and normal heart sounds. Pulmonary/Chest: Effort normal and breath sounds normal. Musculoskeletal: She exhibits tenderness. She exhibits no edema or deformity. Left wrist is tender at the distal radius ounce soft tissue swelling and ecchymosis. Decreased range of motion with flexion 2+ radial pulses she is neurovascularly intact. Neurological: She is alert and oriented to person, place, and time. Skin: Skin is warm and dry. Psychiatric: She has a normal mood and affect. Her behavior is normal. Nursing note and vitals reviewed. Diagnostic Testing ED Labs Ordered and Reviewed - No data to display Procedures ED Course / Clinical Impression Clinical Impressions as of Dec 04 1314 Sprain and strain of left wrist MDM / Disposition / Plan Patient is a 68-year-old white female who slipped getting out of her truck that she was trying to move and landed on the left outstretched hand. His had pain in the hand and the wrist since. Trace were done of the left wrist interpreted by the radiologist show osteoarthritis no fracture. She will be put in a full R Velcro wrist splint. Be advised ice elevate she was offered a prescription for Motrin but she felt that she had at home and declined Be advised follow-up with her orthopedist later in the week. Disposition The patient was discharged. Counseled patient regarding radiology results. As well as the need for follow-up. Discharged home with verbal and written instructions. They were instructed to return as needed for persistent or worsening symptoms or any new concerns. Condition at disposition is improved. The patient was DISCHARGED: Counseled patient regarding radiology results AND need for follow-up. Discharged home with verbal and written instructions. They were instructed to return as needed for persistent or worsening symptoms or any new concerns. Condition at time of disposition: improved and stable SIGNATURE: RUPALI Wilkerson (Pa) 12/04/18 1316 [facility] XR WRIST 4V PA/LAT/OBL/SCAPH LTon 12-04-2018 XR WRIST 4V PA/LAT/OBL/SCAPH LT * * *Final Report* * * DATE OF EXAM: Dec 04 2018 12:43PM MDX [id number] - XR WRIST 4V PA/LAT/OBL/SCAPH LT / PROCEDURE REASON: Fracture, wrist * * * * Physician Interpretation * * * * Left wrist radiographs HISTORY: 68 years old Clinical information: Fracture, wrist TECHNIQUE: Images: XR WRIST 4V PA/LAT/OBL/SCAPH LT Comparison: None. RESULT: Findings: Particular osteopenia. Narrowing of the radiocarpal joint space. Osteophyte formation involving the distal radius. No acute bony fracture identified. Small intra-articular body in the radial aspect of the first carpometacarpal joint. Positive ulnar variance. IMPRESSION: Osteoarthrosis of the left wrist. No acute osseous abnormality identified. Positive ulnar variance. Senior Asic Design Engineer: TagorizeB Transcribe Date/Time: Dec 04 2018 12:45P Dictated by : HECTOR ARNOLD MD This examination was interpreted and the report reviewed and electronically signed by: HECTOR ARNOLD MD on Dec 04 2018 12:47PM EST [id number] Normal [facility] CBC and Differentialon 03-29 Basophils Auto #/vol (Bld) 0.0 K/mcL Invalid Interpretation Code 0 - 0.2 [facility] Eosinophils Auto #/vol (Bld) 0.1 K/mcL Invalid Interpretation Code 0 - 0.5 [facility] Lymphocytes Auto #/vol (Bld) 1.7 K/mcL Invalid Interpretation Code 1.0 - 3.7 [facility] Monocytes Auto #/vol (Bld) 0.3 K/mcL Invalid Interpretation Code 0.1 - 0.6 [facility] Neutrophils Auto #/vol (Bld) 3.3 K/mcL Invalid Interpretation Code 1.2 - 6.9 [facility] Platelets Auto #/vol (Bld) 116 K/mcL Low 162 - 402 [facility] Comment on above: Smear reviewed to ev aluate platelet count and morphology. RBC Auto #/vol (Bld) 5.79 M/mcL High 3.7 - 5.0 [facility] Segmented Neut 60.3 % Invalid Interpretation Code [facility] WBC Auto #/vol (Bld) 5.5 K/mcL Invalid Interpretation Code 3.4 - 10.6 [facility] CBC with Diffon 03-29-2017 Basophils Auto #/vol (Bld) 0.0 K/mcL Normal 0-0.2 [facility] Comment on above: Performed By: #### C MET, LIPID, CRPQT, TSH, [id number], CBCDIF, SEDR, CANDABS ####Unless otherwise noted, all testing performed by [address] [phone]: [id number] Director: Ambrose Davis M.D. Basophils/100 WBC Auto (Bld) 0.6 % Normal [facility] Comment on above: Performed By: #### C MET, LIPID, CRPQT, TSH, [id number], CBCDIF, SEDR, CANDABS ####Unless otherwise noted, all testing performed by [address] [phone]: [id number] Director: Ambrose Davis M.D. Eosinophils 0.1 K/mcL Normal 0-0.5 [facility] Comment on above: Performed By: #### C MET, LIPID, CRPQT, TSH, [id number], CBCDIF, SEDR, CANDABS ####Unless otherwise noted, all testing performed by [address] [phone]: [id number] Director: Ambrose Davis M.D. Eosinophils/100 WBC Auto (Bld) 1.6 % Normal [facility] Comment on above: Performed By: #### C MET, LIPID, CRPQT, TSH, [id number], CBCDIF, SEDR, CANDABS ####Unless otherwise noted, all testing performed by [address] [phone]: [id number] Director: Ambrose Davis M.D. Erythrocyte distribution width Auto Ratio (RBC) 14.0 % Normal 10.0-14.4 [facility] Comment on above: Performed By: #### C MET, LIPID, CRPQT, TSH, [id number], CBCDIF, SEDR, CANDABS ####Unless otherwise noted, all testing performed by [address] [phone]: [id number] Director: Ambrose Davis M.D. Erythrocytes (RBC) 5.79 M/mcL High 3.7-5.0 [facility] Comment on above: Performed By: #### C MET, LIPID, CRPQT, TSH, [id number], CBCDIF, SEDR, CANDABS ####Unless otherwise noted, all testing performed by [address] [phone]: [id number] Director: Ambrose Davis M.D. Hematocrit Auto Volume Fraction (Bld) 51.9 % High 34.4-44.8 [facility] Comment on above: Performed By: #### C MET, LIPID, CRPQT, TSH, [id number], CBCDIF, SEDR, CANDABS ####Unless otherwise noted, all testing performed by [address] [phone]: [id number] Director: Ambrose Davis M.D. Hemoglobin mass conc (Bld) 17.2 g/dL High 11.6-15.4 [facility] Comment on above: Performed By: #### C MET, LIPID, CRPQT, TSH, [id number], CBCDIF, SEDR, CANDABS ####Unless otherwise noted, all testing performed by [address] [phone]: [id number] Director: Ambrose Davis M.D. Lymphocytes 1.7 K/mcL Normal 1.0-3.7 [facility] Comment on above: Performed By: #### C MET, LIPID, CRPQT, TSH, [id number], CBCDIF, SEDR, CANDABS ####Unless otherwise noted, all testing performed by [address] [phone]: [id number] Director: Ambrose Davis M.D. Lymphocytes/100 WBC Auto (Bld) 31.3 % Normal [facility] Comment on above: Performed By: #### C MET, LIPID, CRPQT, TSH, [id number], CBCDIF, SEDR, CANDABS ####Unless otherwise noted, all testing performed by [address] [phone]: [id number] Director: Ambrose Davis M.D. MCH Auto Entitic mass (RBC) 29.7 pg Normal 27.9-33.9 [facility] Comment on above: Performed By: #### C MET, LIPID, CRPQT, TSH, [id number], CBCDIF, SEDR, CANDABS ####Unless otherwise noted, all testing performed by [address] [phone]: [id number] Director: Ambrose Davis M.D. MCHC Auto mass conc (RBC) 33.1 g/dL Normal 33.1-35.1 [facility] Comment on above: Performed By: #### C MET, LIPID, CRPQT, TSH, [id number], CBCDIF, SEDR, CANDABS ####Unless otherwise noted, all testing performed by [address] [phone]: [id number] Director: Ambrose Davis M.D. MCV Auto Entitic volume (RBC) 89.6 fL Normal 82.6-98.9 [facility] Comment on above: Performed By: #### C MET, LIPID, CRPQT, TSH, [id number], CBCDIF, SEDR, CANDABS ####Unless otherwise noted, all testing performed by [address] [phone]: [id number] Director: Ambrose Davis M.D. Monocytes 0.3 K/mcL Normal 0.1-0.6 [facility] Comment on above: Performed By: #### C MET, LIPID, CRPQT, TSH, [id number], CBCDIF, SEDR, CANDABS ####Unless otherwise noted, all testing performed by [address] [phone]: [id number] Director: Ambrose Davis M.D. Monocytes/100 WBC Auto (Bld) 6.2 % Normal [facility] Comment on above: Performed By: #### C MET, LIPID, CRPQT, TSH, [id number], CBCDIF, SEDR, CANDABS ####Unless otherwise noted, all testing performed by [address] [phone]: [id number] Director: Ambrose Davis M.D. Neutrophils 3.3 K/mcL Normal 1.2-6.9 [facility] Comment on above: Performed By: #### C MET, LIPID, CRPQT, TSH, [id number], CBCDIF, SEDR, CANDABS ####Unless otherwise noted, all testing performed by [address] [phone]: [id number] Director: Ambrose Davis M.D. Platelet mean volume Auto Entitic volume (Bld) 10.5 fL Normal 7.0-10.6 [facility] Comment on above: Performed By: #### C MET, LIPID, CRPQT, TSH, [id number], CBCDIF, SEDR, CANDABS ####Unless otherwise noted, all testing performed by [address] [phone]: [id number] Director: Ambrose Davis M.D. Platelets 116 K/mcL Low 162-402 [facility] Comment on above: Result Comment: Smea r reviewed to evaluate platelet count and morphology. Performed By: #### C MET, LIPID, CRPQT, TSH, [id number], CBCDIF, SEDR, CANDABS ####Unless otherwise noted, all testing performed by [address] [phone]: [id number] Director: Ambrose Davis M.D. Segmented Neut % 60.3 % Normal [facility] Comment on above: Performed By: #### C MET, LIPID, CRPQT, TSH, [id number], CBCDIF, SEDR, CANDABS ####Unless otherwise noted, all testing performed by [address] [phone]: [id number] Director: Ambrose Davis M.D. WBC (Leukocytes) 5.5 K/mcL Normal 3.4-10.6 [facility] Comment on above: Performed By: #### C MET, LIPID, CRPQT, TSH, [id number], CBCDIF, SEDR, CANDABS ####Unless otherwise noted, all testing performed by [address] [phone]: [id number] Director: Ambrose Davis M.D. CRP, C-Reactive Proteinon CRP - Inflammation < 2.9 Invalid Interpretation Code 0 - 10 mg/L [facility] CRP, C-Reactive Protein < 2.9 Normal 0.0-10.0 [facility] Comment on above: Performed By: #### C MET, LIPID, CRPQT, TSH, [id number], CBCDIF, SEDR, CANDABS ####Unless otherwise noted, all testing performed by [address] [phone]: [id number] Director: Ambrose Davis M.D. Bindu IgG, IgA, IgM AB Levin rachelle 03-29-2017 Bindu IgA 0.2 Normal [facility] Comment on above: Performed By: #### C MET, LIPID, CRPQT, TSH, [id number], CBCDIF, SEDR, CANDABS ####Unless otherwise noted, all testing performed by [address] [phone]: [id number] Director: Ambrose Davis M.D. Bindu IgG 0.2 Normal [facility] Comment on above: Performed By: #### C MET, LIPID, CRPQT, TSH, [id number], CBCDIF, SEDR, CANDABS ####Unless otherwise noted, all testing performed by [address] [phone]: [id number] Director: Ambrose Davis M.D. Bindu IgM 0.4 Normal [facility] Comment on above: Result Comment: REFE RENCE RANGE: <1.0INTERPRETIVE CRITERIA:<1.0 Antibody not detected> or = 1.0 Antibody detectedSystemic candidiasis is often characterized bymarkedly elevated levels of IgG, IgA, and IgMrecognizing Bindu. However, interpretation ofCandida antibody levels is complicated bydetection of antibodies in 20-30% of healthyindividuals, and blunted antibody responses inimmunocompromised patients at risk for systemiccandidiasis. Bindu antibody results should beconsidered within the context of clinical findingsand results from other relevant laboratory tests,such as Bindu antigen detection and/or culture.This test was developed and its analytical performancecharacteristics have been determined by [facility]. It has not been cleared or approvedby the U.S. Food and Drug Administration. The FDA hasdetermined that such clearance or approval is notnecessary. This assay has been validated pursuant to theIA regulations and is used for clinical purposes.Test Performed by:[facility] [address] [place] [address] Performed By: #### C MET, LIPID, CRPQT, TSH, [id number], CBCDIF, SEDR, CANDABS ####Unless otherwise noted, all testing performed by [address] [phone]: [id number] Director: Ambrose Davis M.D. Comprehensive Metabolic Pane [facility] 03-29-2017 Albumin mass conc 3.7 g/dL Normal 3.2-5.2 [facility] Comment on above: Performed By: #### C MET, LIPID, CRPQT, TSH, [id number], CBCDIF, SEDR, CANDABS ####Unless otherwise noted, all testing performed by [address] [phone]: [id number] Director: Ambrose Davis M.D. ALP enzyme act/vol 75 U/L Normal 40-150 [facility] Comment on above: Performed By: #### C MET, LIPID, CRPQT, TSH, [id number], CBCDIF, SEDR, CANDABS ####Unless otherwise noted, all testing performed by [address] [phone]: [id number] Director: Ambrose Davis M.D. ALT enzyme act/vol 34 U/L Normal 14-65 [facility] Comment on above: Result Comment: This test result might be falsely depressed or falsely elevated onsamples drawn from patients taking Sulfasalazine and Sulfapyridine.Venipuncture should occur prior to taking either of these drugs. Performed By: #### C MET, LIPID, CRPQT, TSH, [id number], CBCDIF, SEDR, CANDABS ####Unless otherwise noted, all testing performed by [address]8509CLIA: [id number] Director: Ambrose Davis M.D. This test result fito ht be falsely depressed or falsely elevated on samples drawn from patients taking Sulfasalazine and Sulfapyridine. Venipuncture should occur prior to taking either of these drugs. AST enzyme act/vol 17 U/L Normal 0-45 [facility] Comment on above: Result Comment: This test result might be falsely depressed or falsely elevated onsamples drawn from patients taking Sulfasalazine and Sulfapyridine.Venipuncture should occur prior to taking either of these drugs. Performed By: #### C MET, LIPID, CRPQT, TSH, [id number], CBCDIF, SEDR, CANDABS ####Unless otherwise noted, all testing performed by [address] [phone]: [id number] Director: Ambrose Davis M.D. This test result fito ht be falsely depressed or falsely elevated on samples drawn from patients taking Sulfasalazine and Sulfapyridine. Venipuncture should occur prior to taking either of these drugs. Bilirubin mass conc 0.9 mg/dL Normal 0.3-1.2 [facility] Comment on above: Performed By: #### C MET, LIPID, CRPQT, TSH, [id number], CBCDIF, SEDR, CANDABS ####Unless otherwise noted, all testing performed by [address] [phone]: [id number] Director: Ambrose Davis M.D. Calcium mass conc 9.4 mg/dL Normal 8.4-10.2 [facility] Comment on above: Performed By: #### C MET, LIPID, CRPQT, TSH, [id number], CBCDIF, SEDR, CANDABS ####Unless otherwise noted, all testing performed by [address] [phone]: [id number] Director: Ambrose Davis M.D. Chloride molar conc 107 mmol/L Normal 98-108 [facility] Comment on above: Performed By: #### C MET, LIPID, CRPQT, TSH, [id number], CBCDIF, SEDR, CANDABS ####Unless otherwise noted, all testing performed by [address] [phone]: [id number] Director: Ambrose Davis M.D. CO2 molar conc 30 mmol/L Normal 21-32 [facility] Comment on above: Performed By: #### C MET, LIPID, CRPQT, TSH, [id number], CBCDIF, SEDR, CANDABS ####Unless otherwise noted, all testing performed by [address] [phone]: [id number] Director: Ambrose Davis M.D. Creatinine mass conc 0.89 mg/dL Normal 0.60-1.20 [facility] Comment on above: Performed By: #### C MET, LIPID, CRPQT, TSH, [id number], CBCDIF, SEDR, CANDABS ####Unless otherwise noted, all testing performed by [address] [phone]: [id number] Director: Ambrose Davis M.D. GFR/1.73 sq M predicted among blacks MDRD vol rate/area (S/P/Bld) mL/min/{1.73_m2} Normal [facility] Comment on above: Result Comment: Afri can Guinean GFR Calc Performed By: #### C MET, LIPID, CRPQT, TSH, [id number], CBCDIF, SEDR, CANDABS ####Unless otherwise noted, all testing performed by [address] [phone]: [id number] Director: Ambrose Davis M.D. GFR Calc GFR/1.73 sq M predicted among non-blacks MDRD vol rate/area (S/P/Bld) mL/min/{1.73_m2} Normal [facility] Comment on above: Result Comment: Non- GFR CalceGFR is an estimated Glomerular Filtration Rate based on the valueof the patient's serum creatinine. In outpatients, eGFR should be usedas a helpful tool in screening for CKD. In inpatients or patients withacute renal failure, eGFR represents the GFR at the moment of the drawand should be used with caution. Performed By: #### C MET, LIPID, CRPQT, TSH, [id number], CBCDIF, SEDR, CANDABS ####Unless otherwise noted, all testing performed by [address] [phone]: [id number] Director: Ambrose Davis M.D. Non- GFR Calc eGFR is an estimated Glomerular Filtration Rate based on the value of the patient's serum creatinine. In outpatients, eGFR should be used as a helpful tool in screening for CKD. In inpatients or patients with acute renal failure, eGFR represents the GFR at the moment of the draw and should be used with caution. Glucose mass conc 89 mg/dL Normal 70-99 [facility] Comment on above: Result Comment: This test result might be falsely depressed or falsely elevated onsamples drawn from patients taking Sulfasalazine and Sulfapyridine.Venipuncture should occur prior to taking either of these drugs. Performed By: #### C MET, LIPID, CRPQT, TSH, [id number], CBCDIF, SEDR, CANDABS ####Unless otherwise noted, all testing performed by [address] [phone]: [id number] Director: Ambrose Davis M.D. This test result fito ht be falsely depressed or falsely elevated on samples drawn from patients taking Sulfasalazine and Sulfapyridine. Venipuncture should occur prior to taking either of these drugs. Potassium molar conc 4.1 mmol/L Normal 3.5-5.1 [facility] Comment on above: Performed By: #### C MET, LIPID, CRPQT, TSH, [id number], CBCDIF, SEDR, CANDABS ####Unless otherwise noted, all testing performed by [address] [phone]: [id number] Director: Ambrose Davis M.D. Protein mass conc 6.8 g/dL Normal 6.0-8.0 [facility] Comment on above: Performed By: #### C MET, LIPID, CRPQT, TSH, [id number], CBCDIF, SEDR, CANDABS ####Unless otherwise noted, all testing performed by [address] [phone]: [id number] Director: Ambrose Davis M.D. Sodium molar conc 142 mmol/L Normal 135-145 [facility] Comment on above: Performed By: #### C MET, LIPID, CRPQT, TSH, [id number], CBCDIF, SEDR, CANDABS ####Unless otherwise noted, all testing performed by [address] [phone]: [id number] Director: Ambrose Davis M.D. Urea nitrogen mass conc 21 mg/dL Normal 8-25 [facility] Comment on above: Performed By: #### C MET, LIPID, CRPQT, TSH, [id number], CBCDIF, SEDR, CANDABS ####Unless otherwise noted, all testing performed by [address] [phone]: [id number] Director: Ambrose Davis M.D. Lipid Panelon 03-29-2017 Cholesterol in HDL mass conc 62 mg/dL High 40-59 [facility] Comment on above: Performed By: #### C MET, LIPID, CRPQT, TSH, [id number], CBCDIF, SEDR, CANDABS ####Unless otherwise noted, all testing performed by [address] [phone]: [id number] Director: Ambrose Davis M.D. Cholesterol in LDL mass conc 157 mg/dL High 10-150 [facility] Comment on above: Performed By: #### C MET, LIPID, CRPQT, TSH, NJ52NTP, CBCDIF, SEDR, CANDABS ####Unless otherwise noted, all testing performed by [address] [phone]: [id number] Director: Ambrose Davis M.D. Cholesterol in VLDL mass conc 24 mg/dL Normal 5-40 [facility] Comment on above: Performed By: #### C MET, LIPID, CRPQT, TSH, [id number], CBCDIF, SEDR, CANDABS ####Unless otherwise noted, all testing performed by [address] [phone]: [id number] Director: Ambrose Davis M.D. Cholesterol mass conc 243 mg/dL High 100-199 [facility] Comment on above: Performed By: #### C MET, LIPID, CRPQT, TSH, [id number], CBCDIF, SEDR, CANDABS ####Unless otherwise noted, all testing performed by [address] [phone]: [id number] Director: Ambrose Davis M.D. Cholesterol.total/Chol esterol in HDL mass ratio 4.0 {ratio} Normal 3.2-5.0 [facility] Comment on above: Result Comment: Fema le Coronary Heart Disease Risk Factor (CHDRF):Average risk= 4.41/2 Average risk= 3.32 times Average risk= 7.1 Performed By: #### C MET, LIPID, CRPQT, TSH, [id number], CBCDIF, SEDR, CANDABS ####Unless otherwise noted, all testing performed by [address] [phone]: [id number] Director: Ambrose Davis M.D. Female Coronary Hear t Disease Risk Factor (CHDRF): Average risk= 4.4 1/2 Average risk= 3.3 2 times Average risk= 7.1 Triglyceride mass conc 121 mg/dL High 25-120 [facility] Comment on above: Performed By: #### C MET, LIPID, CRPQT, TSH, [id number], CBCDIF, SEDR, CANDABS ####Unless otherwise noted, all testing performed by [address] [id number]: [id number] Director: Ambrose Davsi M.D. Sed Rateon 03-29-2017 RBC morphology finding Nom (Bld) Normal Normal Normal [facility] Comment on above: Performed By: #### C MET, LIPID, CRPQT, TSH, [id number], CBCDIF, SEDR, CANDABS ####Unless otherwise noted, all testing performed by [address] [phone]: [id number] Director: Ambrose Davis M.D. Sed Rate 16 MM/hr. Normal 0-20 [facility] Comment on above: Performed By: #### C MET, LIPID, CRPQT, TSH, QK29WLE, CBCDIF, SEDR, CANDABS ####Unless otherwise noted, all testing performed by [address] [phone]: [id number] Director: Ambrose Davis M.D. Sedimentation Rateon 017 Sed Rate 16 MM/hr. Invalid Interpretation Code 0 - 20 [facility] TSHon 03-29-2017 Thyroid stimulating hormone (TSH) 1.39 uIU/mL Normal 0.320-5.000 [facility] Comment on above: Performed By: #### C MET, LIPID, CRPQT, TSH, [id number], CBCDIF, SEDR, CANDABS ####Unless otherwise noted, all testing performed by [facility] [address] [phone]: [id number] Director: Ambrose Davis M.D. Thyrotropin Qn 1.39 uIU/mL Invalid Interpretation Code 0.320 - 5.000 [facility] Vitamin B12 and Folateson Cobalamin (Vitamin B12) mass conc 695 pg/mL Normal 193-986 [facility] Comment on above: Performed By: #### C MET, LIPID, CRPQT, TSH, VA34GTV, CBCDIF, SEDR, CANDABS ####Unless otherwise noted, all testing performed by [address] [phone]: [id number] Director: Ambrose Davis M.D. Folate 19.7 ng/mL High 3.1-17.5 [facility] Comment on above: Performed By: #### C MET, LIPID, CRPQT, TSH, LA98QVC, CBCDIF, SEDR, CANDABS ####Unless otherwise noted, all testing performed by [address] [phone]: [id number] Director: Ambrose Davis M.D. Interpretation and review of laboratory results Abnormal Invalid Interpretation Code [facility] Vital Signs Date Time Vital Sign Value Performing Clinician Yohan braga 09-07-2024 08:24-0400 Body height 170.18 cm Lisandra Kaur [employer] Work Phone: [facility] 09-07-2024 08:24-0400 Body mass index (BMI) [Ratio] 33.8 kg/m2 Lisandra Kaur [employer] Work Phone: [facility] 09-07-2024 08:24-0400 Body weight 98.03 kg Lisandra Kaur [employer] Work Phone: [facility] 09-07-2024 08:24-0400 Diastolic blood pressure 73 mm[Hg] Lisandra Deborah [employer] Work Phone: [facility] 09-07-2024 08:24-0400 Systolic blood pressure 138 mm[Hg] Lisandra Deborah [employer] Work Phone: [facility] 08-09-2024 09:28-0500 Body mass index (BMI) [Ratio] 32.1 kg/m2 Lisandra Deborah [employer] Work Phone: [facility] 08-09-2024 09:28-0500 Body temperature 98.4 [degF] Lisandra Deborah [employer] Work Phone: [facility] 08-09-2024 09:28-0500 Body weight 92.98 kg Lisandra Deborah [employer] Work Phone: [facility] 08-09-2024 09:28-0500 Diastolic blood pressure 80 mm[Hg] Lisandra Deborha [employer] Work Phone: [facility] 08-09-2024 09:28-0500 Heart rate 91 /min Lisandra Deborah [employer] Work Phone: [facility] 08-09-2024 09:28-0500 SaO2% (BldA) [Mass fraction] 97 % Lisandraweston Kaur [employer] Work Phone: [facility] 08-09-2024 09:28-0500 Systolic blood pressure 120 mm[Hg] Lisandra Deborah [employer] Work Phone: [facility] 10-19-2023 14:35-0400 Body height 170.[address] Lulú Rueda Work Phone: [facility] 10-19-2023 14:27-0400 Body mass index (BMI) [Ratio] 33.7 kg/m2 Dr. Lulú Rueda Work Phone: [facility] 10-19-2023 14:27-0400 Body weight 97.[address] Lulú Rueda Work Phone: [phone] [place] [address] 10-19-2023 14:27-0400 Diastolic blood pressure 72 mm[Hg] Dr. Lulú Rueda Work Phone: 7([phone] [place] [address] 10-19-2023 14:27-0400 Systolic blood pressure 124 mm[Hg] Dr. Lulú Rueda Work Phone: 2(744)[phone] [place] [address] 09-14-2022 09:54-0400 Body temperature 97.7 [degF] Dr. Lulú Rueda Work Phone: 9([phone])[phone] [place] [address] 09-14-2022 09:54-0400 Diastolic blood pressure 80 mm[Hg] Dr. Lulú Rueda Work Phone: 7(215)[phone] [place] [address] 09-14-2022 09:54-0400 Heart rate 68 /min Dr. Lulú Rueda Work Phone: 1(030)[phone] [place] [address] 09-14-2022 09:54-0400 Respiratory rate 16 /min Dr. Lulú Rueda Work Phone: 0([phone] [place] [address] 09-14-2022 09:54-0400 SaO2% (BldA) [Mass fraction] 98 % Dr. Lulú Rueda Work Phone: 2(559)[phone] [place] [address] 09-14-2022 09:54-0400 Systolic blood pressure 122 mm[Hg] Dr. Lulú Rueda Work Phone: 4(653)[phone] [place] [address] 09-14-2022 09:20-0400 Inhaled oxygen flow rate 6 L/min Dr. Lulú Rueda Work Phone: 4(129)[phone] [place] [address] 09-14-2022 07:21-0400 Body height 170.[address] Lulú Rueda Work Phone: [phone] [place] [address] 09-14-2022 07:21-0400 Body mass index (BMI) [Ratio] 32.1 kg/m2 Dr. Lulú Rueda Work Phone: [facility] 09-14-2022 07:21-0400 Body weight 92.[address] Lulú Rueda Work Phone: [facility] 08-04-2022 08:37-0500 Body mass index (BMI) [Ratio] 31.3 kg/m2 Dr. Lulú Rueda Work Phone: [facility] 08-04-2022 08:37-0500 Body weight 90.[address] Lulú Rueda Work Phone: [facility] 08-04-2022 08:37-0500 Diastolic blood pressure 86 mm[Hg] Dr. Lulú Rueda Work Phone: [facility] 08-04-2022 08:37-0500 Heart rate 70 /min Dr. Lulú Rueda Work Phone: [facility] 08-04-2022 08:37-0500 Respiratory rate 16 /min Dr. Lulú Rueda Work Phone: [facility] 08-04-2022 08:37-0500 SaO2% (BldA) [Mass fraction] 100 % Dr. Lulú Rueda Work Phone: [facility] 08-04-2022 08:37-0500 Systolic blood pressure 151 mm[Hg] Dr. Lulú Rueda Work Phone: [facility] Encounters Encounter Date Encounter Type Care Provider Facility Start: 09-07-2024 End: 09-07-2024 Patient encounter procedure Judy Licona [facility] Work Phone: Start: 09-07-2024 End: 09-07-2024 ambulatory Lisandra Kaur Facility:[facility] Start: 09-07-2024 End: 09-07-2024 landon Licona Facility:[facility] Start: 09-05-2024 ambulatory Lisandra Deborah Facility:[facility] Start: 08-09-2024 End: 08-09-2024 ambulatory [facility] Facility:[facility] Start: 08-09-2024 End: 08-09-2024 Patient encounter procedure Richard Esposito [place] [facility] Work Phone: Start: 07-09-2024 ambulatory [facility] Facility:[facility] Start: 05-10-2024 End: 05-10-2024 Emergency department patient visit LIVAN Vaishali TRUJILLOFOSTER Facility:[facility] Start: 02-24-2024 End: 02-25-2024 ambulatory 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 Lulú Rueda Work Phone: [facility] Work Phone: Start: 10-19-2023 End: 10-19-[address] Lulú Rueda Work Phone: [facility] Work Phone: Start: 10-19-2023 End: 10-19-2023 ambulatory Aleyda Chong NP Facility:[facility] Start: 06-03-2023 End: 06-26-2023 ambulatory LULÚ RUEDA MD Facility:[facility] Start: 05-20-2023 End: 05-20-2023 ambulatory [facility] Work Phone: Start: 05-20-2023 End: 05-20-2023 Patient encounter procedure [facility] [place] Work Phone: Start: 05-18-2023 End: 05-18-2023 Patient encounter procedure [facility] Work Phone: Start: 05-17-2023 End: 05-17-2023 ambulatory [facility] Work Phone: Start: 05-17-2023 End: 05-17-2023 Patient encounter procedure [facility] Work Phone: Start: 04-01-2023 End: 04-01-2023 [facility] Start: 03-27-2023 End: 03-27-2023 ambulatory EM VITEK 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 Lulú Rueda Work Phone: [facility] Work Phone: Start: 12-21-2022 End: 12-21-[address] 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 Lulú Rueda Work Phone: [facility] Work Phone: Start: 09-14-2022 Non-patient / Non-visit Dr. Manuel Rueda Work Phone: [facility] Start: 09-14-2022 End: 09-14-2022 Admission to same day surgery center Dr. Lulú Rueda Work Phone: [facility] Start: 09-14-2022 End: 09-14-[address] Lulú Rueda Work Phone: [facility] Work Phone: Start: 08-04-2022 End: 08-04-[address] Lulú Rueda Work Phone: [facility] Start: 04-14-2022 End: 04-15-2022 ambulatory LULÚ RUEDA MD Facility:[facility] Start: 04-07-2022 ambulatory LULÚ RUEDA MD [facility] ity:[facility] Start: 03-29-2017 Ambulatory Kyler Bartholomew Facility: [place] Start: 03-29-2017 End: 03-29-2017 Patient encounter procedure [facility] Work Phone: [facility] Procedures Date Procedure Procedure Detail Performing Clinician Start: 09-07-2024 Gram stain microscopy R samina Kaur [employer] SUPERVISOR-C Work Phone: Start: 09-07-2024 Source specific culture Lisandra Kaur [employer] SUPERVISOR-C Work Phone: Start: 10-19-[address] Earl Rueda Work Phone: Start: 10-19-2023 Investigation of tra nsfusion reaction Dr. Lulú Rueda Work Phone: Start: 01-27-2023 Ultrasonography of abdomen Start: 12-21-2022 Pelvis X-ray Dr. Lulú Rueda Work Phone: Start: 12-21-2022 X-ray of lumbosacral spine Dr. Lulú Rueda Work Phone: Start: 09-14-[address] Lulú Rueda Work Phone: Plan of Treatment Date Care Activity Detail Author Start: 10-19-2023 Patient referral [facility] Work Phone: Start: 05-20-2023 Ova and Parasites Ova and Parasites [facility] Start: 05-18-2023 Ova and Parasites Ova and Parasites [facility] Start: 05-17-2023 Ova and Parasites Ova and Parasites [facility] Start: 09-14-2022 Anes integ musc & nr v head neck&posterior trunk ANESTH HEAD/NECK/PTRUNK [facility] Start: 09-14-2022 Excision tumor soft tis back/flank subq 3 cm/> EXC BACK LES SC 3 CM/> [facility] Start: 09-14-2022 Patient discharge [facility] MG Breast - bilatera l Screening [facility] Ova and parasites identified in Unspecified specimen by Light microscopy [facility] Ova and parasites identified in Unspecified specimen by Light microscopy [facility] Ova and parasites identified in Unspecified specimen by Light microscopy [facility] Patient referral [facility] Work Phone: Payers Date Payer Category Payer Self-pay 2021 Unknown [id number] 2017 Medicare [id number] 2008 Unknown 1950 Unknown [id number] 2.16.8 [id number] 1950 Unknown [id number] 2.16.8 40.1.045437.3.579.2.159 1950 Unknown [id number] 2.16.8 40.1.227578.3.579.2.159 1950 Unknown [id number] 2.16.8 40.1.708499.3.579.2.159 1949 Unknown [id number] 2.16.8 40.1.002408.3.579.2.159 1949 Unknown [id number] 2.16.8 40.1.391942.3.579.2.159 1949 Unknown [id number] 2.16.8 40.1.232524.3.579.2.159 1949 Unknown [id number] 2.16.8 40.1.991496.3.579.2.159 1949 Unknown [id number] 2.16.8 40.1.756060.3.579.2.159 1949 Unknown [id number] 2.16.8 40.1.437712.3.579.2.159 1949 Unknown [id number] 2.16.8 40.1.280155.3.579.2.159 1950 Unknown [id number] 2.16.8 40.1.924769.3.579.2.159 Medicare MEDICARE PART A B [id number] Unknown [id number] 2.16. 40.1.463592.3.579.2.462 Unknown [id number] 2..8 40.1.093563.3.579.2.462 Unknown [id number] 2.16.8 40.1.868558.3.579.2.462 Unknown [id number] 2.16.8 40.1.261708.3.579.2.462 Unknown [id number] 2.16.8 40.1.721409.3.579.2.462 Unknown [id number] 2.16.8 40.1.451109.3.579.2.462 Unknown [id number] 2.16.8 40.1.279828.3.579.2.462 Unknown [id number] 2.16.8 40.1.577569.3.579.2.462 Unknown [id number] 2.16.8 40.1.265293.3.579.2.462 Unknown [id number] 2.16.8 40.1.534873.3.579.2.462 Social History Date Type Detail Facility Start: 03-30-2017 End: 10-19-2023 Tobacco smoking status MOIS Unknown if ever smoked [facility] Sex Assigned At Not on file [place] Phone: Start: 1950 Sex Assigned At Female [facility] Start: 10-19-2023 Tobacco smoking status NHIS Never smoked tobacco (finding) [facility] Start: 09-18-2024 Sex Female (finding) [facility] NEGATED: Highlighted row [facility] Goals Date Patient Goal Desired Activity /State Mental Status Date Assessment Result Facility 09-14-2022 Cognitive function Voice/Name [facility] Work Phone: Evaluation note 08-09-2024 Note Date & Type Note Facility 08-09-2024 Evaluation note Diagnosis Onset Date Resolution Influenza due to influenza virus, type A, human acute August 09, 9:31am Vaginal odor acute September 07, 2024 8:19am [facility] Work Phone: Clinical Note 10-19-2023 Note Date & Type Note Facility 10-19-2023 Note [facility] Pap Smear Specimen Adequacy October 19, 2023 4:40pm Comment . Satisfactory for evaluation. Endocervical and/or squamous metaplasticcells (endocervical component) are present. Comment on above: Satisfactory for rochelle luation. Endocervical and/or squamous metaplasticcells (endocervical component) are present. History and physical note 09-14-2022 Note Date & Type Note Facility 09-14-2022 History and physi emiliano note Note Date/Time September 14, 2022 8:37am [facility] Medical Records Department [address] [place] [address] History & Physical Exam 09/14/22 0836 MR#: [id number] Acct: [id number] Name: MIRNA BERMUDEZ Rep #:[id number] : 1950 71 From: Marty lange MD PCP: Dr. Lulú Rueda MD [place] Location: [address] History and Physical Date of Admission: 09/14/22 Intake Vital Signs ? 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 Never smoker alcohol intake:? current details:? one drink per week substance use type:? does not use HPI HPI HPI: The patient is here complaining of pain in her right lower back over the lipoma site ROS General General: Yes fatigue; No weight change, appetite, colon cancer, breast cancer or weakness HEENT HEENT: No difficulty swallowing, eye injury, eye surgery, swollen glands or hoarseness Endo Endocrine: No thyroid disease, diabetes mellitus, thyroid cancer, Hair loss, heat intolerance or cold intolerance Skin Skin: Yes changing moles; No rash Musc Musculoskeletal: Yes back problems and gout; No arthritis, rheumatoid arthritis or joint pain Cardio Cardiovascular: Yes high blood pressure; No murmur, pacemaker, heart disease, atrial fibrillation, heart attack, heart stent, palpitations, shortness of breat with exertion or chest pain Psych Psychiatric: No depression, anxiety or hearing voices Resp Respiratory: No shortness of breath, Yes sleep apnea, No cough, No COPD, No asthma, No emphysema and No wheezing Gastro Gastrointestinal: No abdominal pain, No nausea or vomiting, No diarrhea, No constipation, No blood in stool, Yes acid reflux, Yes hemorrhoids, No ulcers, Nogallbladder problem and No black,tarry stools Juan Hematologic: No blood thinners, No blood disorders, No bleeding, No anemia and No blood clots Neuro Neurologic: No system reviewed and no additional complaints, except as documented, No as per HPI, No abnormal gait, No abnormal hearing, No abnormal movements, No abnormal speech, No behavioral changes, No burning sensations, No confusion, No convulsions, No disequilibrium, No dizziness, No localized weakness, No frequent falls, No headache(s), No lack of coordination, No loss ofvision, No memory loss, No numbness, No other visual disturbances, No radicular pain, No restless legs, No sensory deficit, No syncope, No tingling, No tremor(s), No weakness and No other Exam Const General: cooperative Orientation: alert and oriented x3 HENNH Head: normal to inspection Neck Neck: normal visual inspection and full ROM Chest Chest palpation & inspection: normal inspection of the chest Resp Effort & Inspection: normal respiratory effort Auscultation: clear to auscultation bilaterally Cardio Rate: regular rate Rhythm: regular rhythm GI Inspection: non-distended Palpation: soft and nontender Musc Other: Patient has a subcutaneous soft tissue mass in the right lower back which is mobile and soft Skin General: no rashes or lesions noted Neuro General: patient alert and patient oriented x3 Extrem General: full ROM Psych Appearance: grossly normal Mental Status: mental status grossly normal Assessment and Plan Assessment and Plan (1) Back pain: ?Status:?Acute (2) Lipoma of back: ?Status:?Acute Plan The patient has a large lipoma of the right lower back which is causing her pain.? I informed her that I would have to excise this in the operating room dueto its size.? I discussed the risks of bleeding and infection and recurrence.? Patient understands the risks and is when to proceed with excision. Marty Darby MD Pager: [facility] [address] [place] [address], [address] [place] [address] Office: Intake Vital Signs ? 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 Never smoker alcohol intake:? current details:? one drink per week substance use type:? does not use HPI HPI HPI: The patient is here complaining of pain in her right lower back over the lipoma site ROS General General: Yes fatigue; No weight change, appetite, colon cancer, breast cancer or weakness HEENT HEENT: No difficulty swallowing, eye injury, eye surgery, swollen glands or hoarseness Endo Endocrine: No thyroid disease, diabetes mellitus, thyroid cancer, Hair loss, heat intolerance or cold intolerance Skin Skin: Yes changing moles; No rash Musc Musculoskeletal: Yes back problems and gout; No arthritis, rheumatoid arthritis or joint pain Cardio Cardiovascular: Yes high blood pressure; No murmur, pacemaker, heart disease, atrial fibrillation, heart attack, heart stent, palpitations, shortness of breat with exertion or chest pain Psych Psychiatric: No depression, anxiety or hearing voices Resp Respiratory: No shortness of breath, Yes sleep apnea, No cough, No COPD, No asthma, No emphysema and No wheezing Gastro Gastrointestinal: No abdominal pain, No nausea or vomiting, No diarrhea, No constipation, No blood in stool, Yes acid reflux, Yes hemorrhoids, No ulcers, Nogallbladder problem and No black,tarry stools Juan Hematologic: No blood thinners, No blood disorders, No bleeding, No anemia and No blood clots Neuro Neurologic: No system reviewed and no additional complaints, except as documented, No as per HPI, No abnormal gait, No abnormal hearing, No abnormal movements, No abnormal speech, No behavioral changes, No burning sensations, No confusion, No convulsions, No disequilibrium, No dizziness, No localized weakness, No frequent falls, No headache(s), No lack of coordination, No loss ofvision, No memory loss, No numbness, No other visual disturbances, No radicular pain, No restless legs, No sensory deficit, No syncope, No tingling, No tremor(s), No weakness and No other Exam Const General: cooperative Orientation: alert and oriented x3 HENMT Head: normal to inspection Neck Neck: normal visual inspection and full ROM Chest Chest palpation & inspection: normal inspection of the chest Resp Effort & Inspection: normal respiratory effort Auscultation: clear to auscultation bilaterally Cardio Rate: regular rate Rhythm: regular rhythm GI Inspection: non-distended Palpation: soft and nontender Musc Other: Patient has a subcutaneous soft tissue mass in the right lower back which is mobile and soft Skin General: no rashes or lesions noted Neuro General: patient alert and patient oriented x3 Extrem General: full ROM Psych Appearance: grossly normal Mental Status: mental status grossly normal Assessment and Plan Assessment and Plan (1) Back pain: ?Status:?Acute (2) Lipoma of back: ?Status:?Acute Plan The patient has a large lipoma of the right lower back which is causing her pain.? I informed her that I would have to excise this in the operating room dueto its size.? I discussed the risks of bleeding and infection and recurrence.? Patient understands the risks and is when to proceed with excision. Marty Darby MD Pager: [facility] [address] [place] [address], [address] [place] [address] Office: I have examined the patient and the H&P has been reviewed. There are no clinicalchanges since date of exam. 09/14/22 0837 <Electronically signed by Marty Darby MD> Cosigner Signature (if applicable): CC: Dr. Marty Darby MD; Dr. Lulú Rueda MD~ Signed [facility] Work Phone: Procedure note 09-14-2022 Note Date & Type Note Facility 09-14-2022 Procedure note [facility] Discharge summary Note Date & Type Note Facility Discharge summary Note Date/Time September 14, 2022 9:28am [facility] Medical Records Department [address] [place], [place] [id number] Instructions for Home/Discharge Instructions 09/14/22 0926 MR#: [id number] Acct: [id number] Name: MIRNA BERMUDEZ Rep #:[id number] : 1950 71 From: Marty lange MD PCP: Dr. Lulú Rueda MD [place] Discharge Instructions Diet Discharge Diet: No restrictions Activity Discharge Activity: May Drive (tomorrow) and May Shower (tomorrow) Weight Bearing Status: Weight bearing as tolerated Dressing / Incision Call your doctor if your incision/area has: Continuous Slow Oozing, Sudden Increased Bleeding, Increased Pain/ Swelling, Increased Redness, Foul Smelling Discharge and Swelling at the incision site Call your doctor if you observe: Fever of 101 or Higher Remove Dressing in: 2 days (Remove clear bandage in 2 days, remove Steri-Strips in 7 to 10 days.) Cleanse incision/area with: Soap & Water Follow Up Care Please Follow Up With: Marty Darby MD When: Please call to schedule 2 week follow up appointment. [phone] Test Results: Test results from this visit will be discussed in further detail at your follow-up appointment, if applicable. Discharge Plan Admission Attending Provider: Marty Darby Primary Care Provider: Lulú Rueda Instructions Additional Instructions / Restrictions: Alternating ibuprofen and Tylenol for pain Discharge Orders/Prescriptions Prescriptions: No Action metoprolol succinate 25 mg tablet extended release 24 hr 25 mg PO QODAY thiamine HCl (vitamin B1) [Vitamin B-1] 500 mg Tablet 500 mg PO DAILY biotin 5 mg Capsule 5 mg PO DAILY potassium 99 mg Tablet 198 mg PO DAILY Vitamin C 1,000 mg Capsule, Extended Release 1 cap PO DAILY cholecalciferol (vitamin D3) [Vitamin D3] 50 mcg (2,000 unit) Tablet 100 mcg PO DAILY betaine HCl 300 mg Tablet 648 mg PO DAILY Women's Active 18 mg iron- 400 mcg-180 mg Tablet 2 tab PO DAILY vitamin X85-ehipx acid 1,000-400 mcg Tablet, Sublingual 1 tab SUBLINGUAL DAILY ashwagandha root extract 300 mg Capsule 800 mg PO DAILY Barley Belterra Juice Powder 1 pkg PO/SL DAILY DIM SUPPLEMENT 241 mg PO/SL DAILY Electrolyte Powder 1 pkg PO/SL DAILY Gallbladder Formul 2 cap PO/SL DAILY No Flush Niacin 500 mg PO/SL DAILY Raw Calcium 3 tab PO/SL DAILY Trace Minerals 1 cap PO/SL DAILY Tudh 500 mg PO/SL DAILY Referrals / Follow Up: Lulú Rueda MD [Primary Care Provider] - Disposition Disposition (needs filled in before D/C Order can be placed): Home, Self Care 09/14/22 0932<Electronically signed by Marty Darby MD>Marty Darby MD CC: Dr. Lulú Rueda MD ~ Signed [facility] Work Phone: Evaluation note Note Date & Type Note Facility Evaluation note Diagnosis Onset Date Back pain acute Lipoma of back acute [facility] Work Phone: Evaluation note Note Date & Type Note Facility Evaluation note Diagnosis Onset Date Lipoma of back acute [facility] Work Phone: Evaluation note Note Date & Type Note Facility Evaluation note No assessment information availa ble [facility] Work Phone: Evaluation note Note Date & Type Note Facility Evaluation note Diagnosis Onset Date Atrophic vaginitis acute Elevated liver enzymes acute History of HPV infection acu te Possible exposure to STD non eactive [facility] Work Phone: Reason for referral (narrative) Note Date & Type Note Facility Reason for referral (narrative) No reason for referral information available [facility] Work Phone: Summary Purpose Family History Relationship Condition Age at Onset Recorded Date/T carol brother Cardiac disease Unknown Hypertension Unknown High blood cholesterol Unknown mother Cardiac disease Unknown Advance Directives Advance Directive Response Recorded Date/ Time Name of Medical Power of Foundry Supervisor DAUGHTER September 08, 2022 2:05pm Living Will Yes September 08, 2022 2:05pm Power of Foundry Supervisor Yes September 08 2:05pm Advance Directive Response Recorded Date/ Time Living Will Yes September 08, 2022 2:05pm Power of Foundry Supervisor Yes September 08 2:05pm Advance Directive Response Recorded Date/ Time Living Will Yes September 08, 2022 1:05pm Power of Foundry Supervisor Yes September 08 1:05pm Chief Complaint and Reason for Visit Chief Complaint SUBCUTANEOUS LIPOMA ON LOWER BACK RT LOWER BACK LIPOMA EXCISION RT LOWER BACK LIPOMA EXCISION Reason for Visit Back pain Lipoma of back Chief Complaint RT LOWER BACK LIPOMA EXCISION RT LOWER BACK LIPOMA EXCISION 2WK F/U LIPOMA EXCISION 09/14 LABS AND XRAY- PAIN- COPY PCP Reason for Visit Lipoma of back Chief Complaint LABS AND XRAY- PAIN- COPY PCP POSITIVE PADDY Chief Complaint POSITIVE PADDY PAIN- COPY PCP STOOL - DIARRHEA DAY 1 OF 3 DAY FELI - DAY 2 OF 3 STOOL - DAY 3 OF 3 Chief Complaint VAGINAL ODOR REF FRO M Iraj Reason for Visit Atrophic vaginitis Elevated liver enzymes History of HPV infection Possible exposure to STD Chief Complaint Admit Date SORE THROAT, HEADACHE August 09 9:31am vaginal burning/lump/odor September 07 8:19am Reason for Visit Admit Date Influenza due to influenza virus, type A , human August 09, 2024 9:31am Vaginal odor September 07, 2024 8:1 9am Additional Source Comments INFORMATION SOURCE (unrecogn ized section and content) DATE CREATED AUTHOR 12/21/2017 [facility] DATE CREATED AUTHOR AUTHOR'S ORGANIZ ATION 12/07/2018 [facility] DATE CREATED AUTHOR AUTHOR'S ORGANIZ ATION 09/20/2021 [facility] DATE CREATED AUTHOR AUTHOR'S ORGANIZ ATION 04/01/2023 [facility] DATE CREATED AUTHOR AUTHOR'S ORGANIZ ATION 02/26/2024 [facility] DATE CREATED AUTHOR AUTHOR'S ORGANIZ ATION 04/05/2024 [facility] DATE CREATED AUTHOR AUTHOR'S ORGANIZ ATION 05/18/2024 [facility] DATE CREATED AUTHOR AUTHOR'S ORGANIZ ATION 09/19/2024 [facility] Teams (unrecognized sec tion and content) Team Status: Active Member Role Status Dates Dr. Lulú Rueda MD Primary Care Provider Active Team Status: Inactive Member Role Status Dates Dr. Lulú Rueda MD Primary Care Provider Active Dr. Juaquin Cardoso MD Attending Provider, Referrin g Provider Active Team Status: Inactive Member Role Status Dates Dr. Lulú Rueda MD Primary Care Provider Active Dr. Omaira Barrera MD Attending Provider, Referring Provider Active Team Status: Active Member Role Status Dates Dr. Lulú Rueda MD Primary Care Provider Active Dr. Juaquin Cardoso MD Attending Provider, Referrin g Provider Active Team Status: Active Member Role Status Dates Dr. Lulú Rueda MD Primary Care Provider Active Dr. Marty Darby MD Attending Pr ovider, Referring Provider, Other Provider Active Team Status: Inactive Member Role Status Dates Dr. Lulú Rueda MD Primary Care Provider Active Dr. Marty Darby MD Attending Provider, Referr ing Provider Active Team Status: Inactive Member Role Status Dates Dr. Lulú Rueda MD Primary Care Provider, Referri ng Provider Active Dr. Marty Darby MD Attending Provider Active Team Status: Active Member Role Status Dates Lisandra Kaur NP-C Primary Care Provider Active Team Status: Inactive Member Role Status Dates Dr. Lulú Rueda MD Referring Provider Active Aleyda Chong [employer] SUPERVISOR, [employer] PIPE SUPERVISOR-C Attending Provider Active Lisandra Kaur NP-C Primary Care Provider Active Team Status: Inactive Member Role Status Dates Lisandra Kaur NP-C Primary Care Provider Active Aleyda Chong [employer] SUPERVISOR, [employer] PIPE SUPERVISOR-C Attending Provider, Referring Provider Active Team Status: Inactive Member Role Status Dates Lisandra Kaur NP-C Primary Care Provider Active Start: August 09, 2024 End: August 09, 2024 Lisandra Kaur NP-[place] Referring Provider Active St art: August 09, 2024 End: August 09, 2024 Richard KEENAN, PA Attending Provider Active Sta rt: August 09, 2024 End: August 09, 2024 Team Status: Inactive Member Role Status Dates Lisandra Kaur NP-C Primary Care Provider Active Start: September 07, 2024 End: September 07, 2024 Lisandra Kaur NP-C Referring Provider Active St art: September 07, 2024 End: September 07, 2024 Judy Licona CNM Attending Provider Active S tart: September 07, 2024 End: September 07, 2024 Team Status: Inactive Member Role Status Dates Lisandra Kaur NP-C Primary Care Provider Active Start: September 07, 2024 End: September 07, 2024 Judy Licona CNM Attending Provider Active S tart: September 07, 2024 End: September 07, 2024 Judy Licona CNM Referring Provider Active S tart: September 07, 2024 End: September 07, 2024 Goals (unrecognized section and content) Goals may be documented in a n alternate sectionGoals may be documented in an alternate sectionGoals may be documented in an alternate sectionGoals may be documented in an alternate sectionGoals may be documented in an alternate section FOR RECORDS PERTAINING TO PATIENTS WHO ARE OR HAVE BEEN ENROLLED IN A CHEMICAL DEPENDENCY/SUBSTANCEABUSE PROGRAM, SOME INFORMATION MAY BE OMITTED. This clinical summary was aggregated from multiple sources. Caution should be exercised in using it in the provision of clinical care. This summary normalizes information from multiple sources, and as a consequence, information in this document may materially change the coding, format and clinical context of patient data. In addition, data may be omitted in some cases. CLINICAL DECISIONS SHOULD BE BASED ON THE PRIMARY CLINICAL RECORDS. [facility]. provides no warranty or guarantee of the accuracy or completeness of information in this document.
[2024-11-30 12:22] LABS: Absolute Lymphocyte Count 1.81 X10^3/uL (0.83-4.51); Absolute Neutrophil Count 3.9 X10^3/uL (2.0-7.7); Basophil# 0.03 X10^3/uL; Basophil% 0.5 % (0-1); Eosinophil# 0.09 X10^3/uL; Eosinophils% 1.4 % (0-5); Hematocrit 46.4 % (37-47); Hemoglobin 15.1 g/dL (12.0-15.0); Lymphocyte # 1.81 X10^3/ul (0.83-4.51); Mean Corp Hgb Conc 32.5 g/dL (32-36); Mean Corpuscular Hgb 29.5 pg (27.0-32.0); Mean Corpuscular Volume 90.6 fL (81-99); Mean Platelet Vol. 11.3 fl (6.2-12.0); Monocyte# 0.41 X10^3/uL; Monocyte% 6.6 % (0-10); NRBC Flagged by Analyzer 0 % (0-5); Neutrophil % 62.3 % (47-70); Platelet Count 185 K/mm3 (150-450); RBC Distribution Width CV 12.7 % (11.6-14.6); Red Blood Count 5.12 M/mm3 (4.2-5.4); White Blood Count 6.3 K/mm3 (4.4-11.0)
[2024-11-30 12:54] LABS: Hemoglobin A1c 5.6 % (<=5.6)
[2024-11-30 13:09] LABS: ALB/GLOB Ratio 1.6 RATIO (0.9-2.4); AST(SGOT) 22 U/L (<=31); Alanine Aminotransfer ALT/SGPT 25 U/L (<=34); Albumin, Serum 4.2 g/dL (3.4-4.8); Alkaline Phosphatase 79 U/L (35-104); Anion Gap 11 (5-15); BUN 25 mg/dL (4-19); BUN/Creat Ratio 25.2 RATIO (10-20); Calcium,Total 10.1 mg/dL (7.6-11.0); Carbon Dioxide 22.7 mmol/L (21.0-32.0); Chloride 105 mmol/L (98-108); Cholesterol 239 mg/dL (<=200); Creatinine, Serum 0.98 mg/dL (0.70-1.20); EST Glomerular Filtration Rate 60 (>60); Globulin 2.6 g/dL (2.2-4.2); Glucose 107 mg/dL (70-99); High Density Lipoprotein 64 mg/dL; Low Density Lipoprotein Calc. 152 mg/dL; Potassium 4.8 mmol/L (3.3-5.1); Protein, Total 6.8 g/dL (5.9-8.4); Sodium Level 139 mmol/L (133-145); Total Bilirubin 0.77 mg/dL (0.00-1.30); Triglycerides 116 mg/dL; Very Low Density Lipoprotein 23 mg/dL (5-40); Vitamin B12 750 pg/mL (180-914); cholesterol:hdl ratio screen 3.76
[2024-12-05 05:07] LABS: Arsenic 7245 1 ug/L (0-9); Mercury, Blood 85324 < 1.0 ug/L (0.0-14.9)
== END | disposition home or self-care (01) ==
PROVIDERS: PCP Nurse Practitioner Family; Referring Provider Nurse Practitioner Family; Visit Provider Nurse Practitioner Family
DX: N89.8 Other specified noninflammatory disorders of vagina (principal); Z77.018 Contact with and (suspected) exposure to other hazardous metals; I10 Essential (primary) hypertension
CPT/HCPCS: 36415; 80053; 80061; 82607; 83036; 84443; 85025

== ENCOUNTER → 2024-12-03 | Outpatient (CLI) | payer MEDICARE, SELFPAY | END | disposition home or self-care (01) | LOC: MTLAB 13:33 | PROVIDERS: PCP Nurse Practitioner Family; Referring Provider Nurse Practitioner Family; Visit Provider Nurse Practitioner Family | DX: N89.8 Other specified noninflammatory disorders of vagina (principal); Z77.018 Contact with and (suspected) exposure to other hazardous metals ==

== ENCOUNTER → 2024-12-06 | Outpatient (CLI) | payer MEDICARE, SELFPAY | END | disposition home or self-care (01) | LOC: MTLAB 10:31 | PROVIDERS: PCP Nurse Practitioner Family; Referring Provider Nurse Practitioner Family; Visit Provider Nurse Practitioner Family | DX: N89.8 Other specified noninflammatory disorders of vagina (principal); Z77.018 Contact with and (suspected) exposure to other hazardous metals | CPT/HCPCS: 81050; 82175; 82570; 83655; 83825 ==